=== PATIENT | male | born 1935 | race Caucasian/White ===

== ENCOUNTER 2020-02-09 06:22 | Emergency (ER) | payer MEDICARE, MEDICAID ==
[2020-02-09] MEDS ORDERED: Diltiazem 50 MG/10 ML SDV IVPUSH STA (06:30)
--- NOTE | 2020-02-09 06:36 | EDM.PDOC ---
<Albino Vera Christina - Last Filed: 02/09/20 07:18> ED HPI GENERAL MEDICAL PROBLEM - General Stated Complaint: [facility] Time Seen by Provider: 02/09/20 06:28 Source of Information: Reports: EMS History Limitations: Reports: Altered Mental Status (Patient's baseline MS = confused) - History of Present Illness INITIAL COMMENTS - FREE TEXT/NARRATIVE: Mr. Beard is a pleasantly demented 84-year-old gentleman with a past medical history significant for chronic atrial fibrillation, CAD and ME, who is now brought to the ED by EMS after found to be in atrial fibrillation with RVR by [facility] staff around 04:00. According to EMS, the patient was given both Lopressor and Cardizem at the [facility], without improvement in his heart rate. They were also concerned that the patient might have COVID-19, since another resident at their facility has tested positive, and they felt that the patient might have a fever, although the patient did not have a fever when EMS checked him in the field. He has been generally weak, although he has not had a cough. His blood pressure was normal in the field. EMS gave IV fluid, but no other treatments. Here in the ED, the patient's initial BP is found to be elevated at 150/85. He is afebrile by the forehead thermometer, but has a temperature of 101.4 degrees rectally. His oxygen saturation is 95% on room air. Unfortunately, the patient's baseline mental status is confused, unable to answer any questions, therefore we do not have any additional information as to any recent illnesses. The patient's PCP is Dr. Pepe Isbell. - Related Data Allergies Allergy/AdvReac Type Severity Reaction Status Date / Time No Known Allergies Allergy Verified 02/09/20 06:43 Home Meds: Home Meds Insulin Detemir [Levemir Flexpen] 20 unit SQ DAILY 06/05/15 [History] Acetaminophen [Tylenol] 650 mg PO QID PRN 07/11/15 [History] Enalapril Maleate 5 mg PO DAILY 07/11/15 [History] Metoprolol Tartrate [Lopressor] 25 mg PO BID 07/11/15 [History] Sertraline [Zoloft] 50 mg PO DAILY 07/11/15 [History] allopurinoL [Zyloprim] 100 mg PO BID 07/11/15 [History] Acetaminophen 3 tab PO BID 07/16/16 [History] Bisacodyl [Dulcolax] 10 mg RECTAL DAILY PRN 07/16/16 [History] Crush Medications 1 dose PO ASDIRECTED 07/16/16 [History] Docusate Sodium/Sennosides [Senna Plus] 1 tab PO DAILY PRN 07/16/16 [History] Docusate Sodium/Sennosides [Senna Plus] 2 tab PO BID 07/16/16 [History] Menthol/Camphor [Sarna Anti-Itch] 222 ml TP BEDTIME 07/16/16 [History] Danube Thick Liquids 1 dose PO ASDIRECTED 07/16/16 [History] Nitroglycerin [Nitrostat] 0.4 mg SL Q5M PRN 07/16/16 [History] Polyethylene Glycol 3350 [MiraLAX] 17 gm PO DAILY 07/16/16 [History] Potassium Chloride [Klor-Con M20] 20 meq PO DAILY 07/16/16 [History] Triamcinolone Acetonide [Triamcinolone Acetonide 0.1% Crm] 15 gm TOP BID PRN 07/16/16 [History] amLODIPine [Norvasc] 5 mg PO DAILY 07/16/16 [History] atorvaSTATin [Lipitor] 20 mg PO BEDTIME 07/16/16 [History] Apixaban [Eliquis] 5 mg PO BID 02/09/20 [History] Cetirizine [ZyrTEC] 1 tab PO DAILY 02/09/20 [History] Diltiazem [Cardizem CD] 180 mg PO DAILY 02/09/20 [History] Past Medical History HEENT History: Reports: Allergic Rhinitis Cardiovascular History: Reports: Afib (chronic), CAD, High Cholesterol, Hypertension, ME Gastrointestinal History: Reports: GERD, Other (See Below) (Dysphagia) Genitourinary History: Reports: Urinary Incontinence Musculoskeletal History: Reports: Gout Neurological History: Reports: CVA (hemorrhagic, with resultant left hemiparesis) Psychiatric History: Reports: Dementia (vascular), Depression, Other (See Below) (Insomnia) Endocrine/Metabolic History: Reports: Diabetes, Type II Social & Family History - Family History Family Medical History: Noncontributory - Living Situation & Occupation Living situation: Reports: Extended Care Facility ([facility]) Occupation: Retired ED ROS GENERAL - Review of Systems Review Of Systems: Unable To Obtain Reason Not Obtained: Dementia ED EXAM, GENERAL - Physical Exam Exam: See Below Exam Limited By: No Limitations General Appearance: Alert, WD/WN, No Apparent Distress Eye Exam: Bilateral Eye: EOMI, Normal Inspection Ears: Normal External Exam, Hearing Grossly Normal Nose: Normal Inspection Throat/Mouth: Normal Inspection, Normal Lips, Normal Voice, No Airway Compromise Head: Atraumatic, Normocephalic Neck: Normal Inspection, Full Range of Motion Respiratory/Chest: No Respiratory Distress, Lungs Clear, Normal Breath Sounds, No Accessory Muscle Use. No: Decreased Breath Sounds, Crackles, Rhonchi, Wheezing, Stridor, Prolonged Expiration Cardiovascular: Normal Peripheral Pulses, No Gallop, No JVD, No Murmur, No Rub, Tachycardia, Irregularly Irregular Peripheral Pulses: 3+: Radial (L), Radial (R) GI/Abdominal: Normal Bowel Sounds, Soft, No Organomegaly, No Distention, No Abnormal Bruit, No Mass, Tender (Mild, general, non-focal) (Male) Exam: Deferred Rectal (Males) Exam: Deferred Back Exam: Normal Inspection, Full Range of Motion, NT Extremities: Normal Inspection, Normal Range of Motion, No Pedal Edema, Normal Capillary Refill Neurological: Alert Psychiatric: Normal Affect Skin Exam: Warm, Dry, Intact, Normal Color, No Rash EKG INTERPRETATION EKG Date: 02/09/20 Time: 06:28 Rhythm: A-Fib Rate (Beats/Min): 127 Alanson: LAD-Left Alanson Deviation (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 Additionally, the [facility] was concerned about COVID-19, since they felt the patient had a low-grade fever, and apparently there is a patient who has tested positive at their facility. Although he does not have a fever when measured by a forehead thermometer, I am told that his temperature is 101.4 degrees rectally. The patient does not have a history of a cough, he is not hypoxemic. I have ordered a work-up that includes blood work, a portable chest x-ray, and an ECG. In the meantime, the patient will be given 10 mg IV diltiazem, followed by a diltiazem drip at 10 mg/hr, and IV fluid. 02/09/20 06:38 Because the patient has a history of urinary incontinence, I have ordered a urinalysis by quick catheter. 02/09/20 07:10 Because of the patient's documented fever, I have added a lactic acid level and 2 sets of blood cultures. 02/09/20 07:[address] Mooney, and care of the patient turned over to him at this time, for change of shift. Departure - Departure Disposition: DC/Tfer to [facility] 02 Clinical Impression: Tachycardia, Atrial fibrillation with RVR, Acute renal failure (ARF), Dehydration, Elevated troponin, Sepsis Referrals: Bethany Gama NP [Primary Care Provider] - <Anthony Mooney - Last Filed: 02/09/20 11:42> Course - Vital Signs Last Recorded V/S: Last Vital Signs Temp 38.6 C H 02/09/20 06:38 Pulse 128 H 02/09/20 06:38 Resp 22 H 02/09/20 06:38 BP 115/78 02/09/20 06:38 Pulse Ox 94 L 02/09/20 06:38 - Orders/Labs/Meds Orders: Active Orders 24 hr Category Date Time Status EKG Documentation Completion [RC] STAT Care 02/09/20 06:29 Active Urinary Catheter Assessment [RC] ASDIRECTED Care 02/09/20 08:16 Active Urinary Catheter Insertion [Insert Urinary Catheter] [ Care 02/09/20 07:00 Ordered OM.PC] Stat CULTURE BLOOD [BC] Stat Lab 02/09/20 07:30 Received CULTURE BLOOD [BC] Stat Lab 02/09/20 07:40 Received CULTURE URINE [RM] Stat Lab 02/09/20 08:10 Received MYOGLOBIN, URINE Stat Lab 02/09/20 08:10 Received Diltiazem [Cardizem] 100 mg Med 02/09/20 06:45 Active Sodium Chloride 0.9% [Normal Saline] 100 ml IV TITRATE Lactated Ringers [Ringers, Lactated] 1,000 ml Med 02/09/20 08:45 Active IV ASDIRECTED Sodium Chloride 0.9% [Normal Saline] 1,000 ml Med 02/09/20 06:45 Active IV ASDIRECTED Blood Culture x2 Reflex Set [OM.PC] Stat Oth 02/09/20 07:09 Ordered Medication Orders Diltiazem HCl 100 mg/ Sodium (Chloride) 100 mls @ 10 mls/hr IV TITRATE ALENA; Protocol Last Titration: 02/09/20 08:01 Dose: 5 mg/hr, 5 mls/hr Documented by: Admin: 02/09/20 06:54 Dose: 10 mg/hr, 10 mls/hr Documented by: AXEL Sodium Chloride (Normal Saline) 1,000 mls @ 100 mls/hr IV ASDIRECTED ALENA Last Infusion: 02/09/20 08:13 Dose: 100 mls/hr Documented by: Infusion: 02/09/20 08:01 Dose: 999 mls/hr Documented by: Admin: 02/09/20 06:52 Dose: 100 mls/hr Documented by: AXEL Lactated Ringer's (Ringers, Lactated) 1,000 mls @ 125 mls/hr IV ASDIRECTED ALENA Last Admin: 02/09/20 10:36 Dose: 125 mls/hr Documented by: TERRIE Labs: Laboratory Tests 02/09/20 02/09/20 02/09/20 Range/Units 07:00 07:00 07:30 WBC 25.16 H (4.23-9.07) K/mm3 RBC 3.73 L (4.63-6.08) M/mm3 Hgb 12.1 L D (13.7-17.5) gm/dl Hct 36.5 L (40.1-51.0) % MCV 97.9 H D (79.0-92.2) fl MCH 32.4 H (25.7-32.2) pg MCHC 33.2 (32.2-35.5) g/dl RDW Std Deviation 47.8 H (35.1-43.9) fL Plt Count 155 L (163-337) K/mm3 MPV 10.7 (9.4-12.3) fl Neutrophils % (Manual) 95 H (40-60) % Band Neutrophils % 0 (0-10) % Lymphocytes % (Manual) 0 L (20-40) % Atypical Lymphs % 0 % Monocytes % (Manual) 5 (2-10) % Eosinophils % (Manual) 0 L (0.8-7.0) % Basophils % (Manual) 0 L (0.2-1.2) Toxic Granulation Few Platelet Estimate Adequate Plt Morphology Comment Normal RBC Morph Comment Normal Sodium 141 (136-145) mEq/L Potassium 3.4 L (3.5-5.1) mEq/L Chloride 104 (98-107) mEq/L Carbon Dioxide 22 (21-32) mEq/L Anion Gap 18.4 H (5-15) BUN 46 H D (7-18) mg/dL Creatinine 2.6 H D (0.7-1.3) mg/dL Est Cr Clr Drug Dosing TNP Estimated GFR (MDRD) 24 (>60) mL/min BUN/Creatinine Ratio 17.7 (14-18) Glucose 115 (83-115) mg/dL Lactic Acid 1.3 (0.4-2.0) mmol/L Calcium 8.7 (8.5-10.1) mg/dL Magnesium 2.1 (1.8-2.4) mg/dl Total Bilirubin 1.6 H (0.2-1.0) mg/dL AST 25 (15-37) U/L ALT 24 (16-63) U/L Alkaline Phosphatase 96 (46-116) U/L Troponin I 0.464 H* (0.00-0.056) ng/mL Total Protein 6.6 (6.4-8.2) g/dl Albumin 2.8 L (3.4-5.0) g/dl Globulin 3.8 gm/dL Albumin/Globulin Ratio 0.7 L (1-2) Urine Color (Yellow) Urine Appearance (Clear) Urine pH (5.0-8.0) Ur Specific Spearfish (1.005-1.030) Urine Protein (Negative) Urine Glucose (UA) (Negative) Urine Ketones (Negative) Urine Occult Blood (Negative) Urine Nitrite (Negative) Urine Bilirubin (Negative) Urine Urobilinogen (0.2-1.0) Ur Leukocyte Esterase (Negative) Urine RBC (0-5) /hpf Urine WBC (0-5) /hpf Urine WBC Clumps (NOT SEEN) /hpf Ur Epithelial Cells (0-5) /hpf Urine Bacteria (FEW) /hpf Urine Mucus (FEW) /hpf SARS Virus RNA (PCR) (NEGATIVE) 02/09/20 02/09/20 Range/Units 08:10 09:30 WBC (4.23-9.07) K/mm3 RBC (4.63-6.08) M/mm3 Hgb (13.7-17.5) gm/dl Hct (40.1-51.0) % MCV (79.0-92.2) fl MCH (25.7-32.2) pg MCHC (32.2-35.5) g/dl RDW Std Deviation (35.1-43.9) fL Plt Count (163-337) K/mm3 MPV (9.4-12.3) fl Neutrophils % (Manual) (40-60) % Band Neutrophils % (0-10) % Lymphocytes % (Manual) (20-40) % Atypical Lymphs % % Monocytes % (Manual) (2-10) % Eosinophils % (Manual) (0.8-7.0) % Basophils % (Manual) (0.2-1.2) Toxic Granulation Platelet Estimate Plt Morphology Comment RBC Morph Comment Sodium (136-145) mEq/L Potassium (3.5-5.1) mEq/L Chloride (98-107) mEq/L Carbon Dioxide (21-32) mEq/L Anion Gap (5-15) BUN (7-18) mg/dL Creatinine (0.7-1.3) mg/dL Est Cr Clr Drug Dosing Estimated GFR (MDRD) (>60) mL/min BUN/Creatinine Ratio (14-18) Glucose (83-115) mg/dL Lactic Acid (0.4-2.0) mmol/L Calcium (8.5-10.1) mg/dL Magnesium (1.8-2.4) mg/dl Total Bilirubin (0.2-1.0) mg/dL AST (15-37) U/L ALT (16-63) U/L Alkaline Phosphatase (46-116) U/L Troponin I (0.00-0.056) ng/mL Total Protein (6.4-8.2) g/dl Albumin (3.4-5.0) g/dl Globulin gm/dL Albumin/Globulin Ratio (1-2) Urine Color Malgorzata H (Yellow) Urine Appearance Cloudy H (Clear) Urine pH 6.0 (5.0-8.0) Ur Specific Spearfish 1.020 (1.005-1.030) Urine Protein 3+ H (Negative) Urine Glucose (UA) Negative (Negative) Urine Ketones Trace H (Negative) Urine Occult Blood 3+ H (Negative) Urine Nitrite Negative (Negative) Urine Bilirubin 1+ H (Negative) Urine Urobilinogen 0.2 (0.2-1.0) Ur Leukocyte Esterase 1+ H (Negative) Urine RBC 75-100 H (0-5) /hpf Urine WBC 40-50 H (0-5) /hpf Urine WBC Clumps Rare (NOT SEEN) /hpf Ur Epithelial Cells Not seen (0-5) /hpf Urine Bacteria Rare (FEW) /hpf Urine Mucus Not seen (FEW) /hpf SARS Virus RNA (PCR) Negative (NEGATIVE) Meds: Medications Generic Name Dose Route Start Last Admin Trade Name Freq PRN Reason Stop Dose Admin Diltiazem HCl 100 mg/ Sodium 100 mls @ 10 mls/hr 02/09/20 06:45 02/09/20 08:01 Chloride IV 5 mg/hr TITRATE ALENA 5 mls/hr Titration Protocol 10 MG/HR Sodium Chloride 1,000 mls @ 100 mls/hr 02/09/20 06:45 02/09/20 08:13 Normal Saline IV 100 mls/hr ASDIRECTED ALENA Infusion Lactated Ringer's 1,000 mls @ 125 mls/hr 02/09/20 08:45 02/09/20 10:36 Ringers, Lactated IV 125 mls/hr ASDIRECTED ALENA Administration Discontinued Medications Generic Name Dose Route Start Last Admin Trade Name Freq PRN Reason Stop Dose Admin Aspirin 324 mg 02/09/20 08:58 02/09/20 09:40 Aspirin PO 02/09/20 08:59 324 mg ONETIME ONE Administration Ceftriaxone Sodium 2 gm/ 0 gm 02/09/20 09:00 02/09/20 09:09 Lidocaine HCl 2.1 ml IM Not Given Q24H ALENA Diltiazem HCl 10 mg 02/09/20 06:30 02/09/20 06:53 Cardizem IVPUSH 02/09/20 06:31 10 mg ONETIME STA Administration Ceftriaxone Sodium 2 gm/ 100 mls @ 200 mls/hr 02/09/20 09:07 02/09/20 09:38 Sodium Chloride IV 02/09/20 09:36 Not Given ONETIME ONE Ceftriaxone Sodium 2 gm/ 100 mls @ 200 mls/hr 02/09/20 09:13 02/09/20 09:15 Sodium Chloride IV 02/09/20 09:42 200 mls/hr ONETIME ONE Administration Potassium Chloride 40 meq 02/09/20 08:34 02/09/20 09:06 Klor-Con M20 PO 02/09/20 08:35 Not Given ONETIME ONE Potassium Chloride 40 meq 02/09/20 09:02 02/09/20 09:40 Potassium Chloride Solution PO 02/09/20 09:03 40 meq ONETIME ONE Administration - Re-Assessments/Exams Free Text/Narrative Re-Assessment/Exam: 02/09/20 08:15 Assumed care at change of shift shortly before 8 the patient's troponin was reported and is elevated at 0.464. After some time I was able to discuss situation with the patient's son who says he is comfort care but a full code the patient still wants everything done. Patient was seen in [facility] in [place] for 5 years ago and told he was a nonoperative candidate for his heart condition. Patient is chronic A. fib he has had extensive coronary artery disease has had a prior ME and has had a stroke. Patient is on Eliquis for his chronic A. fib. At 804 I discussed the patient's case with Dedra Brewer call at [facility] in [place] and at [address] longo and he wanted an EKG faxed to her I did do this with the top portion of the EKG deleted. And am waiting for return call. The patient's BUN and creatinine is 46 and 2.6 in June 2016 he was 18 and 0.9 in December of this year his creatinine was 0.9 at [facility]. So this represents an acute renal situation is anion gap is elevated at 18.4. Chest x-ray AP suboptimal due to rotation and positioning however shows no acute changes per my interpretation. 02/09/20 08:44 On my evaluation of the patient he has scant if any pretibial edema heart sounds were clear the patient was not complaining of any chest pain or chest pressure distant heart sounds were appreciated irregularly irregular. No abdominal pain good bowel sounds. I did discuss patient's case with Dr. Francisco cardiology at [facility] in [place] who did review the EKG and does not feel this is ischemic in nature. 02/09/20 08:56 Discussed the situation with Dr. Youngblood, accepting hospitalist at [facility] in [place] who would like us to check a rapid COVID start 2 g of Rocephin and aspirin 325 mg. Are waiting to transfer until we get a bed number. Patient will be started on LR 125 cc an hour. 02/09/20 10:14 It should be noted that the patient's fluid was started at 125 cc an hour as I did not feel comfortable bolusing him as he is anticipating a prolonged ambulance ride to [place] in the very near future and he has significant underlying coronary disease. The patient is demonstrating cardiovascular stability currently he has a blood pressure of 100 and over 55 map of 70 pulse 86. 02/09/20 11:41 Patient's rapid COVID is negative. Departure - Departure Time of Disposition: 08:57 Reason for Transfer *Q: Other Sepsis Event Note (ED) - Focused Exam Vital Signs: Vital Signs Temp Pulse Resp BP Pulse Ox 02/09/20 06:38 38.6 C H 128 H 22 H 115/78 94 L - My Orders Last 24 Hours: My Active Orders 02/09/20 08:10 CULTURE URINE [RM] Stat MYOGLOBIN, URINE Stat 02/09/20 08:45 Lactated Ringers [Ringers, Lactated] 1,000 ml IV ASDIRECTED - Assessment/Plan Last 24 Hours: My Active Orders 02/09/20 08:10 CULTURE URINE [RM] Stat MYOGLOBIN, URINE Stat 02/09/20 08:45 Lactated Ringers [Ringers, Lactated] 1,000 ml IV ASDIRECTED
[2020-02-09] MEDS ORDERED: Sodium Chloride 0.9% 1,000 ML IV SCH (06:45)
[2020-02-09] MEDS ORDERED: Diltiazem 100 MG in Sodium Chloride 0.9% 100 ML IV SCH (06:45)
--- NOTE | 2020-02-09 07:56 | CR ---
Chest: Portable view of the chest was obtained. Comparison: Prior chest x-ray of 06/05/15. Heart size and mediastinum are within normal limits for portable technique. Lungs are clear with no acute parenchymal change. Bony structures are osteopenic. Degenerative change is noted within both shoulders. Possible chronic rotator cuff tear is are noted within both shoulders. Impression: 1. Findings as described above. 2. Nothing acute is appreciated. Diagnostic code #2 This report was dictated in MDT
[2020-02-09] MEDS ORDERED: Potassium Chloride 20 MEQ Tab.ER PO ONE (08:34)
[2020-02-09] MEDS ORDERED: Lactated Ringers 1,000 ML IV SCH (08:45)
[2020-02-09] MEDS ORDERED: Aspirin 81 MG Tab.Chew PO ONE (08:58)
[2020-02-09] MEDS ORDERED: cefTRIAXone 2 GM, Lidocaine 1% 2.1 ML IM SCH ×2 (09:00)
[2020-02-09] MEDS ORDERED: Potassium Chloride 10% 20 MEQ/15 ML Soln 15 ML UD Cup PO ONE (09:02)
[2020-02-09] MEDS ORDERED: cefTRIAXone 2 GM in Sodium Chloride 0.9% 100 ML IV ONE ×2 (09:07→09:13)
[2020-02-09 13:07] VITALS: BP 99/69; PULSE 87
== END 2020-02-09 12:30 ==
LOC: JD.ED 06:22
DX: R65.20 Severe sepsis without septic shock (principal); N17.9 Acute kidney failure, unspecified; E86.0 Dehydration; R00.0 Tachycardia, unspecified; R79.89 Other specified abnormal findings of blood chemistry; I10 Essential (primary) hypertension; E78.00 Pure hypercholesterolemia, unspecified; I25.10 Atherosclerotic heart disease of native coronary artery without angina pectoris; I48.91 Unspecified atrial fibrillation; F32.9 Major depressive disorder, single episode, unspecified; M10.9 Gout, unspecified; E11.9 Type 2 diabetes mellitus without complications; Z20.828 Contact with and (suspected) exposure to other viral communicable diseases; Z79.4 Long term (current) use of insulin; Z79.01 Long term (current) use of anticoagulants; Z79.899 Other long term (current) drug therapy
CPT/HCPCS: 36415; 71045; 80053; 81001; 83605; 83735; 83874; 84484; 85007; 85027; 87040; 87086; 87088; 87186; 93005; 96361; 96365; 96366; 96367; 96376; 99285; A9270; J0696; J3490; J7030; J7050; J7120; U0002

== ENCOUNTER 2020-09-06 04:20 | Emergency (ER) | payer MEDICARE, MEDICAID, OTHER ==
--- NOTE | 2020-09-06 04:45 | EDM.PDOC ---
ED HPI GENERAL MEDICAL PROBLEM - General Chief Complaint: Respiratory Problem Stated Complaint: LIBERTY AMB Time Seen by Provider: 09/06/20 04:31 Source of Information: Reports: Patient, RN Notes Reviewed History Limitations: Reports: Other (The patient has dementia) - History of Present Illness INITIAL COMMENTS - FREE TEXT/NARRATIVE: Mr. Beard is a pleasantly demented 84-year-old gentleman who is now brought to the ED by EMS from [facility] with a report of "Chest pain, difficulty with breathing. O2 sat on 4L is 90%. Diaphoretic. Audible wheezes. CP improving after 3 nitro. BP stable." The group home paperwork does not indicate when the patient's symptoms began. When I asked the patient what brings him to the ED, he replied "chest pain", and indicated pain felt across his chest. He stated that he has had chest pain for 2 days. I also asked him if it was true that he felt short of breath, and he indicated "slightly" and that it had also been going on for 2 days. The patient is not able to provide any more meaningful history. Here in the ED, the patient's initial BP is found to be mildly elevated at 141/74, with tachypnea of 29 rpm. He is afebrile, saturating 86% on room air, 92% on 2 L of oxygen per nasal cannula. Unfortunately, due to the patient's dementia, he is not able to provide us with a meaningful recent review of systems. The patient's PCP is Dr. Pepe Isbell. 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: Oxygen - Related Data Allergies Allergy/AdvReac Type Severity Reaction Status Date / Time No Known Allergies Allergy Verified 09/06/20 05:45 Home Meds: Home Meds Insulin Detemir [Levemir Flexpen] 20 unit SQ DAILY 06/05/15 [History] Acetaminophen [Tylenol] 650 mg PO QID PRN 07/11/15 [History] Enalapril Maleate 5 mg PO DAILY 07/11/15 [History] Metoprolol Tartrate [Lopressor] 25 mg PO BID 07/11/15 [History] Sertraline [Zoloft] 50 mg PO DAILY 07/11/15 [History] allopurinoL [Zyloprim] 100 mg PO DAILY 07/11/15 [History] Bisacodyl [Dulcolax] 10 mg RECTAL DAILY PRN 07/16/16 [History] Crush Medications 1 dose PO ASDIRECTED 07/16/16 [History] Docusate Sodium/Sennosides [Senna Plus] 1 tab PO DAILY PRN 07/16/16 [History] Docusate Sodium/Sennosides [Senna Plus] 2 tab PO BID 07/16/16 [History] Menthol/Camphor [Sarna Anti-Itch] 222 ml TP BEDTIME 07/16/16 [History] [employer] Thick Liquids 1 dose PO ASDIRECTED 07/16/16 [History] Nitroglycerin [Nitrostat] 0.4 mg SL Q5M PRN 07/16/16 [History] Potassium Chloride [Klor-Con M20] 20 meq PO DAILY 07/16/16 [History] Triamcinolone Acetonide [Triamcinolone Acetonide 0.1% Crm] 15 gm TOP BID PRN 07/16/16 [History] amLODIPine [Norvasc] 5 mg PO DAILY 07/16/16 [History] atorvaSTATin [Lipitor] 20 mg PO DAILY 07/16/16 [History] Apixaban [Eliquis] 2.5 mg PO BID 02/09/20 [History] Cetirizine [ZyrTEC] 1 tab PO DAILY 02/09/20 [History] Diltiazem [Cardizem CD] 180 mg PO DAILY 02/09/20 [History] Donepezil [Aricept] 10 mg PO DAILY 09/06/20 [History] Isosorbide Mononitrate [Imdur] 30 mg PO DAILY 09/06/20 [History] Past Medical History HEENT History: Reports: Allergic Rhinitis Cardiovascular History: Reports: Afib (chronic), CAD, High Cholesterol, Hypertension, [place] Gastrointestinal History: Reports: GERD, Other (See Below) (Dysphagia) Genitourinary History: Reports: Urinary Incontinence Musculoskeletal History: Reports: Gout Neurological History: Reports: CVA (hemorrhagic, with resultant left hemiparesis), Seizure, Other (See Below) (Dementia) Psychiatric History: Reports: Depression, Other (See Below) (Insomnia) Endocrine/Metabolic History: Reports: Diabetes, Type II - Infectious Disease History Infectious Disease History: Reports: Novel Coronavirus (dx'd May 2020) Social & Family History - Living Situation & Occupation Living situation: Reports: Extended Care Facility ([facility]) Occupation: Retired ED ROS GENERAL - Review of Systems Review Of Systems: Unable To Obtain Reason Not Obtained: Pt's dementia ED EXAM, GENERAL - Physical Exam Exam: See Below Exam Limited By: No Limitations General Appearance: Alert, WD/WN, No Apparent Distress Eye Exam: Bilateral Eye: EOMI, Normal Inspection Ears: Normal External Exam, Hearing Grossly Normal Nose: Normal Inspection Throat/Mouth: Normal Inspection, Normal Lips, No Airway Compromise Head: Atraumatic, Normocephalic Neck: Normal Inspection, Full Range of Motion Respiratory/Chest: No Respiratory Distress, Lungs Clear, Normal Breath Sounds, No Accessory Muscle Use. No: Wheezing Cardiovascular: Normal Peripheral Pulses, No Gallop, No JVD, No Murmur, No Rub, Irregularly Irregular (regular rate) Peripheral Pulses: 3+: Radial (L), Radial (R) GI/Abdominal: Normal Bowel Sounds, Soft, Non-Tender, No Organomegaly, No Distention, No Abnormal Bruit, No Mass Extremities: Normal Inspection, Normal Range of Motion, Normal Capillary Refill Neurological: Alert Psychiatric: Normal Affect Skin Exam: Warm, Dry, Intact, Normal Color, No Rash #1 Interpretation EKG Date: 09/06/20 Time: 04:30 Rhythm: A-Fib Rate (Beats/Min): 89 [place]: Other (Extreme axis) P-Wave: Absent QRS: RBBB (Poor R-wave progression) ST-T: Depressed (V3-V6 + inferior leads) QT: Prolonged (QTc 525 ms) Comparison: Change From Previous EKG (ST depressions new since 02/09/2020) Course - Vital Signs Last Recorded V/S: Last Vital Signs Temp 36.3 C 09/06/20 04:27 Pulse 88 09/06/20 04:27 Resp 29 H 09/06/20 04:27 BP 141/74 H 09/06/20 04:27 Pulse Ox 86 L 09/06/20 04:27 - Orders/Labs/Meds Orders: Active Orders 24 hr Category Date Time Status EKG Documentation Completion [RC] STAT Care 09/06/20 04:35 Active Chest 1V Frontal [CR] Stat Exams 09/06/20 05:11 Taken Labs: Laboratory Tests 09/06/20 09/06/20 09/06/20 Range/Units 04:35 04:35 04:35 WBC 14.01 H (4.23-9.07) K/mm3 RBC 3.76 L (4.63-6.08) M/mm3 Hgb 11.7 L (13.7-17.5) gm/dl Hct 36.0 L (40.1-51.0) % MCV 95.7 H (79.0-92.2) fl MCH 31.1 (25.7-32.2) pg MCHC 32.5 (32.2-35.5) g/dl RDW Std Deviation 49.9 H (35.1-43.9) fL Plt Count 159 L (163-337) K/mm3 MPV 11.3 (9.4-12.3) fl Neutrophils % (Manual) 91 H (40-60) % Band Neutrophils % 1 (0-10) % Lymphocytes % (Manual) 5 L (20-40) % Atypical Lymphs % 0 % Monocytes % (Manual) 3 (2-10) % Eosinophils % (Manual) 0 L (0.8-7.0) % Basophils % (Manual) 0 L (0.2-1.2) Platelet Estimate Adequate Poikilocytosis 1+ slight Anisocytosis 1+ slight RBC Morph Comment Abnormal D-Dimer, Quantitative 0.48 (0.19-0.50) mg/L Sodium 141 (136-145) mEq/L Potassium 4.8 (3.5-5.1) mEq/L Chloride 104 (98-107) mEq/L Carbon Dioxide 22 (21-32) mEq/L Anion Gap 19.8 H (5-15) BUN 41 H (7-18) mg/dL Creatinine 1.8 H (0.7-1.3) mg/dL Est Cr Clr Drug Dosing TNP Estimated GFR (MDRD) 36 (>60) mL/min BUN/Creatinine Ratio 22.8 H (14-18) Glucose 180 H (83-115) mg/dL Calcium 8.8 (8.5-10.1) mg/dL Magnesium 2.5 H (1.8-2.4) mg/dl Total Bilirubin 1.7 H (0.2-1.0) mg/dL AST 45 H (15-37) U/L ALT 34 (16-63) U/L Alkaline Phosphatase 92 (46-116) U/L Troponin I 2.585 H* (0.00-0.056) ng/mL NT-Pro-B Natriuret Pep (0-450) pg/mL Total Protein 7.4 (6.4-8.2) g/dl Albumin 3.9 (3.4-5.0) g/dl Globulin 3.5 gm/dL Albumin/Globulin Ratio 1.1 (1-2) Influenza Type A RNA (NEGATIVE) Influenza Type B RNA (NEGATIVE) SARS-CoV-2 RNA (CORDELL) (NEGATIVE) 09/06/20 09/06/20 Range/Units 04:35 05:14 WBC (4.23-9.07) K/mm3 RBC (4.63-6.08) M/mm3 Hgb (13.7-17.5) gm/dl Hct (40.1-51.0) % MCV (79.0-92.2) fl MCH (25.7-32.2) pg MCHC (32.2-35.5) g/dl RDW Std Deviation (35.1-43.9) fL Plt Count (163-337) K/mm3 MPV (9.4-12.3) fl Neutrophils % (Manual) (40-60) % Band Neutrophils % (0-10) % Lymphocytes % (Manual) (20-40) % Atypical Lymphs % % Monocytes % (Manual) (2-10) % Eosinophils % (Manual) (0.8-7.0) % Basophils % (Manual) (0.2-1.2) Platelet Estimate Poikilocytosis Anisocytosis RBC Morph Comment D-Dimer, Quantitative (0.19-0.50) mg/L Sodium (136-145) mEq/L Potassium (3.5-5.1) mEq/L Chloride (98-107) mEq/L Carbon Dioxide (21-32) mEq/L Anion Gap (5-15) BUN (7-18) mg/dL Creatinine (0.7-1.3) mg/dL Est Cr Clr Drug Dosing Estimated GFR (MDRD) (>60) mL/min BUN/Creatinine Ratio (14-18) Glucose (83-115) mg/dL Calcium (8.5-10.1) mg/dL Magnesium (1.8-2.4) mg/dl Total Bilirubin (0.2-1.0) mg/dL AST (15-37) U/L ALT (16-63) U/L Alkaline Phosphatase (46-116) U/L Troponin I (0.00-0.056) ng/mL NT-Pro-B Natriuret Pep 61666 H (0-450) pg/mL Total Protein (6.4-8.2) g/dl Albumin (3.4-5.0) g/dl Globulin gm/dL Albumin/Globulin Ratio (1-2) Influenza Type A RNA Negative (NEGATIVE) Influenza Type B RNA Negative (NEGATIVE) SARS-CoV-2 RNA (CORDELL) Negative (NEGATIVE) Meds: Medications Discontinued Medications Generic Name Dose Route Start Last Admin Trade Name Freq PRN Reason Stop Dose Admin Aspirin 324 mg 09/06/20 04:51 09/06/20 05:15 Aspirin PO 09/06/20 04:52 324 mg ONETIME STA Administration Furosemide 40 mg 09/06/20 05:47 09/06/20 06:03 Lasix IVPUSH 09/06/20 05:48 40 mg NOW ONE Administration - Re-Assessments/Exams Free Text/Narrative Re-Assessment/Exam: 09/06/20 04:43 As above, the patient was brought to the ED from the group home, dyspnea, hypoxia, diaphoresis, and audible wheezing. The patient, who has dementia, reports only chest pain, and states that he has had that for 2 days. The group home papers indicate that his chest pain improved after he was given 3 nitroglycerin. While he does have a wheezing-like sound to the naked ear, his lungs are clear to auscultation bilaterally with a stethoscope, indicating an upper airway source of the sound. An ECG obtained at triage demonstrates atrial fibrillation, rate controlled, and a right bundle branch block. He has ST depressions seen in V3V6 and in the inferior leads, which are different from his prior ECG dated 02/09/2020. His physical exam is unremarkable. He is not diaphoretic. I have ordered a work-up that includes several blood tests, a portable chest x-ray, and swabs for both influenza and the SARS-CoV-2 virus. In the meantime, the patient will be given 324 mg of chewable aspirin. Of note, the patient is on Eliquis. 09/06/20 05:43 Notified by Cecilia COTTER that the patient was diagnosed with COVID-19 in May. He received his second dose of the COVID vaccine this past 09/04/2019. Portable chest radiograph reviewed. The cardiac silhouette is at the upper limits of normal. Aortosclerosis incidentally noted. There is bilateral pulmonary vascular congestion. No pleural effusions seen on this AP view. No pneumothorax. Formal read per the Radiologist pending. The patient's CBC is remarkable for WBC count elevated at 14.01, with only 1% bandemia. His H/H is slightly depressed at 11.7 and 36.0, with mild thrombocytopenia of 159,000. His CMP is remarkable for an anion gap elevated at 19.8, but with a bicarbonate normal at 22. His BUN/Cr are elevated at 41/1.8, with modest hyperglycemia of 180. His TBil is elevated at 1.7, with the remainder of his CMP being unremarkable. His magnesium level is mildly elevated at 2.5. His pro-BNP is substantially elevated at 18,967. His troponin is elevated at 2.585. His D-dimer is within normal limits at 0.48. Results of his influenza/COVID-19 swab are still pending. Review of prior labs finds that the patient's BUN/Cr were 46/2.6 on 02/09/2020. His troponin was 2.585 at that time. There are no prior pro-BNP to compare. 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 I have ordered 40 mg of IV Lasix. 09/06/20 06:03 The patient's influenza swab has returned negative. His swab for the SARS-CoV-2 virus has returned negative. The patient's CODE STATUS is full code. His underlying dementia and renal insufficiency may limited him as a candidate for a coronary angiogram, however, I would like to discuss his situation with a Joinery Machinist. 09/06/20 06:31 Case discussed with Minna at [facility] at 06:06. Unfortunately, they do not have any cardiac beds available at this time. Case then discussed with Andry at [facility] at 06:17. Case then discussed with Dr. Aguirre, electrostatic powder coating technician on-call at [facility], at 06:22. He agreed that we are not able to determine at this time with the patient's elevated troponin and BNP are due to a recent [place] or COVID cardiomyopathy. He recommended that we transfer the patient to the care of their Hospitalist. He agreed with our current care, but did not recommend any other medications at this time. Case then discussed with Dr. Melissa, Hospitalist at [facility], at 06:29. Accepted the patient for transfer to their facility. The patient will be transported by ground ambulance. 09/06/20 06:55 The portable chest x-ray image has been pushed to [facility]. Departure - Departure Time of Disposition: 06:34 Disposition: DC/Tfer to Acute Hospital 02 Condition: Good Clinical Impression: Elevated troponin, CHF exacerbation, Chronic renal insufficiency, Hyperglycemia due to type 2 diabetes mellitus - Discharge Information *PRESCRIPTION DRUG MONITORING PROGRAM REVIEWED*: Not Applicable *COPY OF PRESCRIPTION DRUG MONITORING REPORT IN PATIENT TURNER: Not Applicable Referrals: Pepe Isbell MD [Primary Care Provider] - Forms: ED Department Discharge Sepsis Event Note (ED) - Evaluation Sepsis Screening Result: No Definite Risk - Focused Exam Vital Signs: Vital Signs Temp Pulse Resp BP Pulse Ox 09/06/20 04:27 36.3 C 88 29 H 141/74 H 86 L - My Orders Last 24 Hours: My Active Orders 09/06/20 04:35 EKG Documentation Completion [RC] STAT 09/06/20 05:11 Chest 1V Frontal [CR] Stat - Assessment/Plan Last 24 Hours: My Active Orders 09/06/20 04:35 EKG Documentation Completion [RC] STAT 09/06/20 05:11 Chest 1V Frontal [CR] Stat
[2020-09-06] MEDS ORDERED: Aspirin 81 MG Tab.Chew PO STA (04:51)
[2020-09-06 05:15] VITALS: BP 141/74; PULSE 88
[2020-09-06] MEDS ORDERED: Furosemide 40 MG/4 ML VIAL IVPUSH ONE (05:47)
[2020-09-06 06:01] LABS: CORONAVIRUS COVID-19 NAA NEGATIVE (NEGATIVE)
--- NOTE | 2020-09-07 12:52 | CR ---
Chest: Portable view of the chest was obtained. Comparison: Prior chest x-ray of 02/09/20. Heart is enlarged. Pulmonary vessels are diffusely increased. Bony structures are grossly intact. Impression: 1. Findings highly suspicious for CHF. Diagnostic code #3
== END 2020-09-06 07:15 ==
LOC: JD.ED 04:20
DX: E11.65 Type 2 diabetes mellitus with hyperglycemia (principal); E11.22 Type 2 diabetes mellitus with diabetic chronic kidney disease; I13.0 Hypertensive heart and chronic kidney disease with heart failure and stage 1 through stage 4 chronic kidney disease, or unspecified chronic kidney disease; I50.9 Heart failure, unspecified; N18.9 Chronic kidney disease, unspecified; I48.91 Unspecified atrial fibrillation; I25.10 Atherosclerotic heart disease of native coronary artery without angina pectoris; E78.00 Pure hypercholesterolemia, unspecified; M10.9 Gout, unspecified; F03.90 Unspecified dementia, unspecified severity, without behavioral disturbance, psychotic disturbance, mood disturbance, and anxiety; Z86.73 Personal history of transient ischemic attack (TIA), and cerebral infarction without residual deficits; R79.89 Other specified abnormal findings of blood chemistry; I25.2 Old myocardial infarction; Z79.01 Long term (current) use of anticoagulants; Z79.899 Other long term (current) drug therapy; Z20.822 Contact with and (suspected) exposure to COVID-19; Z79.4 Long term (current) use of insulin
CPT/HCPCS: 0240U; 36415; 71045; 80053; 83735; 83880; 84484; 85007; 85027; 85379; 93005; 96374; 99285; A9270; J1940; 93010

== ENCOUNTER 2020-09-12 08:32 | Inpatient (IN) | payer MEDICARE, MEDICAID ==
[2020-09-12] MEDS ORDERED: Sodium Chloride 0.9% 10 ML Syringe FLUSH PRN (08:51)
[2020-09-12] MEDS ORDERED: Sodium Chloride 0.9% 500 ML IV ONE (08:57)
--- NOTE | 2020-09-12 09:04 | EDM.PDOC ---
ED HPI GENERAL MEDICAL PROBLEM - General Chief Complaint: Cardiovascular Problem Stated Complaint: [facility] Time Seen by Provider: 09/12/20 08:36 Source of Information: Reports: Patient (Significant history of dementia.), [facility] Records, Old Records History Limitations: Reports: Other (ED vital signs temp 97.1, pulse 117, respiratory rate 13, blood blood pressure 110/64, pulse ox 100% on room air.) - History of Present Illness INITIAL COMMENTS - FREE TEXT/NARRATIVE: 84-year-old male presents to the emergency department via [place] [facility] with complaints of chest discomfort. He is a resident of [facility] with significant dementia so it is hard to obtain a thorough history from him. Per the half-way patient was recently sent to [facility] due to atrial fibrillation. However, upon looking at old records it appears the patient was in heart failure and had positive troponins. Per the half-way report the patient's Cardizem was discontinued on this last hospitalization. Patient presents today with complaints of chest discomfort he is unable to tell me what he was doing or when it started. He states it is much worse when I palpate his chest. It is also worse when taking a deep breath. States he feels woozy. He also tells me he has has abdominal pain however he is not able to localize the pain. Lung sounds are diminished with fine crackles noted to the left posterior lobe. His tongue is extremely dry. And there is no edema noted. - Related Data Allergies Allergy/AdvReac Type Severity Reaction Status Date / Time No Known Allergies Allergy Verified 09/12/20 13:48 Home Meds: Home Meds Insulin Detemir [Levemir Flexpen] 10 unit SQ DAILY 06/05/15 [History] Acetaminophen [Tylenol] 650 mg PO QID PRN 07/11/15 [History] Enalapril Maleate 5 mg PO DAILY 07/11/15 [History] Metoprolol Tartrate [Lopressor] 37.5 mg PO BID 07/11/15 [History] Sertraline [Zoloft] 50 mg PO DAILY 07/11/15 [History] allopurinoL [Zyloprim] 200 mg PO DAILY 07/11/15 [History] Bisacodyl [Dulcolax] 10 mg RECTAL DAILY PRN 07/16/16 [History] Crush Medications 1 dose PO ASDIRECTED 07/16/16 [History] Docusate Sodium/Sennosides [Senna Plus] 2 tab PO BID 07/16/16 [History] Menthol/Camphor [Sarna Anti-Itch] 1 applic TP BEDTIME 07/16/16 [History] [place] Thick Liquids 1 dose PO ASDIRECTED 07/16/16 [History] Nitroglycerin [Nitrostat] 0.4 mg SL Q5M PRN 07/16/16 [History] Potassium Chloride [Klor-Con M20] 20 meq PO DAILY 07/16/16 [History] Triamcinolone Acetonide [Triamcinolone Acetonide 0.1% Crm] 1 applic TOP BID PRN 07/16/16 [History] amLODIPine [Norvasc] 5 mg PO DAILY 07/16/16 [History] atorvaSTATin [Lipitor] 20 mg PO DAILY 07/16/16 [History] Apixaban [Eliquis] 5 mg PO BID 02/09/20 [History] Cetirizine [ZyrTEC] 5 mg PO DAILY 02/09/20 [History] Donepezil [Aricept] 10 mg PO DAILY 09/06/20 [History] Isosorbide Mononitrate [Imdur] 30 mg PO DAILY 09/06/20 [History] Acetaminophen 650 mg PO BID 09/12/20 [History] Aspirin 81 mg PO DAILY 09/12/20 [History] Cranberry 425 mg PO DAILY 09/12/20 [History] Furosemide [Lasix] 40 mg PO DAILY 09/12/20 [History] Insulin NPH Human Isophane [Novolin N Flexpen] 1 dose SUBCUT QID PRN 09/12/20 [History] Past Medical History HEENT History: Reports: Allergic Rhinitis Other HEENT History: dysphasia, is on nectar thickened liquids with crushed meds/pureed foods Cardiovascular History: Reports: Afib, CAD, High Cholesterol, Hypertension, [place] Gastrointestinal History: Reports: GERD, Other (See Below) Other Gastrointestinal History: dysphagia Genitourinary History: Reports: Urinary Incontinence Musculoskeletal History: Reports: Gout Other Musculoskeletal History: chronic muscle weakness, lack of coordination, abnormal posture, hemiplegia and hemiparesis left side, gout Neurological History: Reports: CVA, Seizure, Other (See Below) Other Neuro History: 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 Psychiatric History: Reports: Depression, Other (See Below) Other Psychiatric History: insomnia Endocrine/Metabolic History: Reports: Diabetes, Type II - Infectious Disease History Infectious Disease History: Reports: Novel Coronavirus Social & Family History - Family History Family Medical History: No Pertinent Family History - Tobacco Use Tobacco Use Status *Q: Unknown Ever Used Tobacco - Caffeine Use Caffeine Use: Reports: None - Recreational Drug Use Recreational Drug Use: No - Living Situation & Occupation Living situation: Reports: Extended Care Facility ([facility]) Occupation: Retired ED ROS GENERAL - Review of Systems Review Of Systems: See Below Constitutional: Reports: No Symptoms. Denies: Fever, Malaise HEENT: Reports: No Symptoms Respiratory: Reports: No Symptoms. Denies: Shortness of Breath, Wheezing, Pleuritic Chest Pain, Cough Cardiovascular: Reports: Chest Pain, Lightheadedness. Denies: Edema, Orthopnea, Palpitations, Syncope Endocrine: Reports: No Symptoms GI/Abdominal: Reports: Abdominal Pain (Generalized). Denies: Constipation, Diarrhea, Nausea, Vomiting : Reports: No Symptoms Musculoskeletal: Reports: No Symptoms Skin: Reports: No Symptoms Neurological: Reports: Confusion (History of dementia) Psychiatric: Reports: No Symptoms Hematologic/Lymphatic: Reports: No Symptoms Immunologic: Reports: No Symptoms ED EXAM, GENERAL - Physical Exam Exam: See Below Exam Limited By: Other (Significant history of dementia, patient is a poor historian) General Appearance: Alert, WD/WN, No Apparent Distress Eye Exam: Bilateral Eye: PERRL Ears: Normal External Exam, Hearing Grossly Normal Nose: Normal Inspection Throat/Mouth: Normal Inspection, Normal Lips, No Airway Compromise, Other (Mouth is very dry.) Head: Atraumatic, Normocephalic Neck: Normal Inspection, Supple, Non-Tender, Full Range of Motion Respiratory/Chest: No Respiratory Distress, Normal Breath Sounds, Chest Non- Tender (Bilaterally chest is tender with minimal palpation.), Decreased Breath Sounds, Crackles (Fine crackles noted to left posterior lobe). No: Lungs Clear Cardiovascular: Normal Peripheral Pulses, Regular Rate, Rhythm, No Edema, No Murmur Peripheral Pulses: 2+: Radial (L), Radial (R) GI/Abdominal: Normal Bowel Sounds, Soft, No Distention, Tender (In all quadrants with palpation) (Male) Exam: Deferred Rectal (Males) Exam: Deferred Back Exam: Normal Inspection, Full Range of Motion Extremities: Normal Inspection, Normal Range of Motion, Non-Tender, No Pedal Edema, Normal Capillary Refill Neurological: Alert, Oriented (To person and place only) Psychiatric: Normal Affect, Normal Mood Skin Exam: Warm, Dry, Intact, Normal Color, No Rash Lymphatic: No Adenopathy #1 Interpretation EKG Date: 09/12/20 Time: 08:36 Rhythm: A-Fib Rate (Beats/Min): 117 [place]: Normal P-Wave: Absent QRS: RBBB Comparison: No Change (Per Dr. Mooney interpretation: Atrial fibrillation rate 117, ST depression V2 through V5, 2, aVF, right bundle branch block.) Course - Vital Signs Text/Narrative:: Recheck of the patient's blood pressure reveals 90/65. I have ordered a 500 cc normal saline bolus as patient appears to be dehydrated. I have also ordered a CBC, CMP, magnesium, troponin, CRP, proBNP, chest x-ray and an EKG. Last Recorded V/S: Last Vital Signs Temp 98.1 F 09/12/20 15:17 Pulse 89 09/12/20 15:17 Resp 14 09/12/20 15:17 BP 120/75 09/12/20 15:17 Pulse Ox 94 L 09/12/20 15:17 - Orders/Labs/Meds Orders: Active Orders 24 hr Category Date Time Status CULTURE BLOOD [BC] Stat Lab 09/12/20 09:35 Received CULTURE BLOOD [BC] Stat Lab 09/12/20 09:45 Received CULTURE URINE [RM] Stat Lab 09/12/20 10:20 Received Sodium Chloride 0.9% [Saline Flush] Med 09/12/20 08:51 Active 10 ml FLUSH ASDIRECTED PRN Blood Culture x2 Reflex Set [OM.PC] Stat Oth 09/12/20 09:15 Ordered Saline Lock Insert [OM.PC] Stat Oth 09/12/20 08:51 Ordered Medication Orders Acetaminophen (Tylenol) 650 mg PO Q4H PRN PRN Reason: Pain (Mild 1-3)/fever Allopurinol (Zyloprim) 200 mg PO DAILY ALENA Apixaban (Eliquis) 2.5 mg PO BID ALENA Aspirin (Aspirin) 81 mg PO DAILY ALENA Bisacodyl (Dulcolax) 10 mg RECTAL DAILY PRN PRN Reason: Constipation Donepezil HCl (Aricept) 10 mg PO DAILY [facility] Enalapril Maleate (Vasotec) 5 mg PO DAILY [facility] Famotidine (Pepcid) 20 mg PO DAILY [facility] Furosemide (Lasix) 40 mg PO DAILY [facility] Piperacillin Sod/Tazobactam (Sod 4.5 gm/ Sodium Chloride) 100 mls @ 25 mls/hr IV Q8H [facility] Lactated Ringer's (Ringers, Lactated) 1,000 mls @ 75 mls/hr IV ASDIRECTED ALENA Stop: 09/13/20 01:19 Last Admin: 09/12/20 12:55 Dose: 75 mls/hr Documented by: YEFRI Insulin Glargine (Lantus) 10 unit SUBCUT DAILY [facility] Insulin Human Lispro (Humalog) 0 unit SUBCUT QIDACANDBED [facility], [facility]; Protocol Isosorbide Mononitrate (Imdur) 30 mg PO DAILY [facility] Metoprolol Tartrate (Lopressor) 37.5 mg PO BID [facility] Senna/Docusate Sodium (Senna Plus) 1 tab PO DAILY PRN PRN Reason: Constipation Sertraline HCl (Zoloft) 50 mg PO DAILY [facility] Sodium Chloride (Saline Flush) 10 ml FLUSH ASDIRECTED PRN PRN Reason: Keep Vein Open Last Admin: 09/12/20 08:54 Dose: 10 ml Documented by: SHIVAM Labs: Laboratory Tests 09/12/20 09/12/20 09/12/20 Range/Units 08:40 08:40 08:40 WBC 16.44 H (4.23-9.07) K/mm3 RBC 3.82 L (4.63-6.08) M/mm3 Hgb 11.7 L (13.7-17.5) gm/dl Hct 36.7 L (40.1-51.0) % MCV 96.1 H (79.0-92.2) fl MCH 30.6 (25.7-32.2) pg MCHC 31.9 L (32.2-35.5) g/dl RDW Std Deviation 47.4 H (35.1-43.9) fL Plt Count 188 (163-337) K/mm3 MPV 10.7 (9.4-12.3) fl Neut % (Auto) 88.5 H (34.0-67.9) % Lymph % (Auto) 5.8 L (21.8-53.1) % [place] % (Auto) 5.4 (5.3-12.2) % Eos % (Auto) 0.1 L (0.8-7.0) Baso % (Auto) 0.0 L (0.1-1.2) % Neut # (Auto) 14.56 H (1.78-5.38) K/mm3 Lymph # (Auto) 0.95 L (1.32-3.57) K/mm3 [place] # (Auto) 0.89 H (0.30-0.82) K/mm3 Eos # (Auto) 0.01 L (0.04-0.54) K/mm3 Baso # (Auto) 0.00 L (0.01-0.08) K/mm3 Manual Slide Review Abnormal smear Sodium 145 (136-145) mEq/L Potassium 3.7 (3.5-5.1) mEq/L Chloride 105 (98-107) mEq/L Carbon Dioxide 29 (21-32) mEq/L Anion Gap 14.7 (5-15) BUN 40 H (7-18) mg/dL Creatinine 1.8 H (0.7-1.3) mg/dL Est Cr Clr Drug Dosing 27.05 mL/min Estimated GFR (MDRD) 36 (>60) mL/min BUN/Creatinine Ratio 22.2 H (14-18) Glucose 188 H (83-115) mg/dL Lactic Acid (0.4-2.0) mmol/L Calcium 8.9 (8.5-10.1) mg/dL Magnesium 2.2 (1.8-2.4) mg/dl Total Bilirubin 1.1 H (0.2-1.0) mg/dL AST 15 (15-37) U/L ALT 21 (16-63) U/L Alkaline Phosphatase 80 (46-116) U/L Troponin I 0.090 H* (0.00-0.056) ng/mL C-Reactive Protein 22.3 H* (<1.0) mg/dL NT-Pro-B Natriuret Pep 7829 H (0-450) pg/mL Total Protein 6.9 (6.4-8.2) g/dl Albumin 3.1 L (3.4-5.0) g/dl Globulin 3.8 gm/dL Albumin/Globulin Ratio 0.8 L (1-2) Amylase (20-160) U/L Lipase (73-393) U/L Urine Color (Yellow) Urine Appearance (Clear) Urine pH (5.0-8.0) Ur Specific [place] (1.005-1.030) Urine Protein (Negative) Urine Glucose (UA) (Negative) Urine Ketones (Negative) Urine Occult Blood (Negative) Urine Nitrite (Negative) Urine Bilirubin (Negative) Urine Urobilinogen (0.2-1.0) Ur Leukocyte Esterase (Negative) U Hyaline Cast (Auto) (0-5) /lpf Urine RBC (0-5) /hpf Urine WBC (0-5) /hpf Ur Squamous Epith Cells (0-5) /hpf Amorphous Sediment (NOT SEEN) /hpf Urine Bacteria (FEW) /hpf Urine Mucus (FEW) /hpf SARS-CoV-2 RNA (CORDELL) (NEGATIVE) 09/12/20 09/12/20 09/12/20 Range/Units 08:40 08:45 09:35 WBC (4.23-9.07) K/mm3 RBC (4.63-6.08) M/mm3 Hgb (13.7-17.5) gm/dl Hct (40.1-51.0) % MCV (79.0-92.2) fl MCH (25.7-32.2) pg MCHC (32.2-35.5) g/dl RDW Std Deviation (35.1-43.9) fL Plt Count (163-337) K/mm3 MPV (9.4-12.3) fl Neut % (Auto) (34.0-67.9) % Lymph % (Auto) (21.8-53.1) % [place] % (Auto) (5.3-12.2) % Eos % (Auto) (0.8-7.0) Baso % (Auto) (0.1-1.2) % Neut # (Auto) (1.78-5.38) K/mm3 Lymph # (Auto) (1.32-3.57) K/mm3 [place] # (Auto) (0.30-0.82) K/mm3 Eos # (Auto) (0.04-0.54) K/mm3 Baso # (Auto) (0.01-0.08) K/mm3 Manual Slide Review Sodium (136-145) mEq/L Potassium (3.5-5.1) mEq/L Chloride (98-107) mEq/L Carbon Dioxide (21-32) mEq/L Anion Gap (5-15) BUN (7-18) mg/dL Creatinine (0.7-1.3) mg/dL Est Cr Clr Drug Dosing mL/min Estimated GFR (MDRD) (>60) mL/min BUN/Creatinine Ratio (14-18) Glucose (83-115) mg/dL Lactic Acid 1.2 (0.4-2.0) mmol/L Calcium (8.5-10.1) mg/dL Magnesium (1.8-2.4) mg/dl Total Bilirubin (0.2-1.0) mg/dL AST (15-37) U/L ALT (16-63) U/L Alkaline Phosphatase (46-116) U/L Troponin I (0.00-0.056) ng/mL C-Reactive Protein (<1.0) mg/dL NT-Pro-B Natriuret Pep (0-450) pg/mL Total Protein (6.4-8.2) g/dl Albumin (3.4-5.0) g/dl Globulin gm/dL Albumin/Globulin Ratio (1-2) Amylase 23 (20-160) U/L Lipase 79 (73-393) U/L Urine Color (Yellow) Urine Appearance (Clear) Urine pH (5.0-8.0) Ur Specific [place] (1.005-1.030) Urine Protein (Negative) Urine Glucose (UA) (Negative) Urine Ketones (Negative) Urine Occult Blood (Negative) Urine Nitrite (Negative) Urine Bilirubin (Negative) Urine Urobilinogen (0.2-1.0) Ur Leukocyte Esterase (Negative) U Hyaline Cast (Auto) (0-5) /lpf Urine RBC (0-5) /hpf Urine WBC (0-5) /hpf Ur Squamous Epith Cells (0-5) /hpf Amorphous Sediment (NOT SEEN) /hpf Urine Bacteria (FEW) /hpf Urine Mucus (FEW) /hpf SARS-CoV-2 RNA (CORDELL) (NEGATIVE) 09/12/20 09/12/20 Range/Units 10:20 10:20 WBC (4.23-9.07) K/mm3 RBC (4.63-6.08) M/mm3 Hgb (13.7-17.5) gm/dl Hct (40.1-51.0) % MCV (79.0-92.2) fl MCH (25.7-32.2) pg MCHC (32.2-35.5) g/dl RDW Std Deviation (35.1-43.9) fL Plt Count (163-337) K/mm3 MPV (9.4-12.3) fl Neut % (Auto) (34.0-67.9) % Lymph % (Auto) (21.8-53.1) % [place] % (Auto) (5.3-12.2) % Eos % (Auto) (0.8-7.0) Baso % (Auto) (0.1-1.2) % Neut # (Auto) (1.78-5.38) K/mm3 Lymph # (Auto) (1.32-3.57) K/mm3 [place] # (Auto) (0.30-0.82) K/mm3 Eos # (Auto) (0.04-0.54) K/mm3 Baso # (Auto) (0.01-0.08) K/mm3 Manual Slide Review Sodium (136-145) mEq/L Potassium (3.5-5.1) mEq/L Chloride (98-107) mEq/L Carbon Dioxide (21-32) mEq/L Anion Gap (5-15) BUN (7-18) mg/dL Creatinine (0.7-1.3) mg/dL Est Cr Clr Drug Dosing mL/min Estimated GFR (MDRD) (>60) mL/min BUN/Creatinine Ratio (14-18) Glucose (83-115) mg/dL Lactic Acid (0.4-2.0) mmol/L Calcium (8.5-10.1) mg/dL Magnesium (1.8-2.4) mg/dl Total Bilirubin (0.2-1.0) mg/dL AST (15-37) U/L ALT (16-63) U/L Alkaline Phosphatase (46-116) U/L Troponin I (0.00-0.056) ng/mL C-Reactive Protein (<1.0) mg/dL NT-Pro-B Natriuret Pep (0-450) pg/mL Total Protein (6.4-8.2) g/dl Albumin (3.4-5.0) g/dl Globulin gm/dL Albumin/Globulin Ratio (1-2) Amylase (20-160) U/L Lipase (73-393) U/L Urine Color Yellow (Yellow) Urine Appearance Slt cloudy H (Clear) Urine pH 5.5 (5.0-8.0) Ur Specific [place] > or = 1.030 (1.005-1.030) Urine Protein 1+ H (Negative) Urine Glucose (UA) Negative (Negative) Urine Ketones Negative (Negative) Urine Occult Blood 1+ H (Negative) Urine Nitrite Negative (Negative) Urine Bilirubin 1+ H (Negative) Urine Urobilinogen 1.0 (0.2-1.0) Ur Leukocyte Esterase 1+ H (Negative) U Hyaline Cast (Auto) 5-10 H (0-5) /lpf Urine RBC 20-30 H (0-5) /hpf Urine WBC 40-50 H (0-5) /hpf Ur Squamous Epith Cells 5-10 H (0-5) /hpf Amorphous Sediment Moderate H (NOT SEEN) /hpf Urine Bacteria Many H (FEW) /hpf Urine Mucus Not seen (FEW) /hpf SARS-CoV-2 RNA (CORDELL) Negative (NEGATIVE) Meds: Medications Generic Name Dose Route Start Last Admin Trade Name Freq PRN Reason Stop Dose Admin Acetaminophen 650 mg 09/12/20 11:44 Tylenol PO Q4H PRN Pain (Mild 1-3)/fever Allopurinol 200 mg 09/13/20 09:00 Zyloprim PO DAILY ALENA Apixaban 2.5 mg 09/12/20 21:00 Eliquis PO BID ALENA Aspirin 81 mg 09/13/20 09:00 Aspirin PO DAILY ALENA Bisacodyl 10 mg 09/12/20 11:58 Dulcolax RECTAL DAILY PRN Constipation Donepezil HCl 10 mg 09/13/20 09:00 Aricept PO DAILY [facility], [facility]1983 Enalapril Maleate 5 mg 09/13/20 09:00 Vasotec PO DAILY ALENA Famotidine 20 mg 09/13/20 09:00 Pepcid PO DAILY ALENA Furosemide 40 mg 09/13/20 09:00 Lasix PO DAILY [facility], 1928[facility]1983 Piperacillin Sod/Tazobactam 100 mls @ 25 mls/hr 09/12/20 20:30 Sod 4.5 gm/ Sodium Chloride IV Q8H ALENA Lactated Ringer's 1,000 mls @ 75 mls/hr 09/12/20 12:00 09/12/20 12:55 Ringers, Lactated IV 09/13/20 01:19 75 mls/hr ASDIRECTED ALENA Administration Insulin Glargine 10 unit 09/13/20 09:00 Lantus SUBCUT DAILY [facility], [facility]1983 Insulin Human Lispro 0 unit 09/12/20 17:00 Humalog SUBCUT QIDACANDBED [facility], [facility]1983 Protocol Isosorbide Mononitrate 30 mg 09/13/20 09:00 Imdur PO DAILY [facility], [facility]1983 Metoprolol Tartrate 37.5 mg 09/12/20 21:00 Lopressor PO BID [facility]1983 Senna/Docusate Sodium 1 tab 09/12/20 11:58 Senna Plus PO DAILY PRN Constipation Sertraline HCl 50 mg 09/13/20 09:00 Zoloft PO DAILY [facility]1983 Sodium Chloride 10 ml 09/12/20 08:51 09/12/20 08:54 Saline Flush FLUSH 10 ml ASDIRECTED PRN Administration Keep Vein Open Discontinued Medications Generic Name Dose Route Start Last Admin Trade Name Freq PRN Reason Stop Dose Admin Sodium Chloride 500 mls @ 500 mls/hr 09/12/20 08:57 09/12/20 09:21 Normal Saline IV 09/12/20 09:56 500 mls/hr .BOLUS ONE Administration Ceftriaxone Sodium 2 gm/ 100 mls @ 200 mls/hr 09/12/20 10:39 09/12/20 11:17 Sodium Chloride IV 09/12/20 11:08 200 mls/hr ONETIME ONE Administration Piperacillin Sod/Tazobactam 100 mls @ 200 mls/hr 09/12/20 12:30 09/12/20 12:55 Sod 4.5 gm/ Sodium Chloride IV 09/12/20 12:59 200 mls/hr ONETIME ONE Administration - Re-Assessments/Exams Free Text/Narrative Re-Assessment/Exam: 09/12/20 10:05 Portable view of the chest radiologist impression: 1. Minimal atelectasis located adjacent to the left hemidiaphragm. 2. Previous findings of CHF have resolved. 3. Nothing acute is otherwise seen. 09/12/20 10:43 Labs reveal a WBC of 16.44, hemoglobin 11.7, hematocrit 36.7, neutrophil percentage 88.5, lymphocyte percentage 5.8, sodium 145, potassium 3.7, carbon dioxide 29, anion gap 14.7, BUN 40, creatinine 1.8, glucose 188, magnesium 2.2, total bili 1.1, troponin 0 0.090, C-reactive protein 22.3, proBNP 7829, amylase 23, lipase 79 Patient does fall into sepsis criteria however he does have a history of congestive heart failure and I do not want to fluid overload him so I have given him a 500 mL bolus of normal saline at this time. 09/12/20 10:52 Urinalysis reveals 1+ protein, 1+ occult blood, nitrate negative, 1+ bilirubin, 1+ leuk esterase, 5-10 casts, urine RBC 20-30, urine WBC 40-50, urine squamous epithelial cells 5-10 I have ordered 2 g of Rocephin on this patient 09/12/20 11:04 Lactic acid comes back at 1.2. 09/12/20 11:[address] Barrientos regarding admitting this patient and his he has agreed to accept him as an inpatient [facility] floor. Departure - Departure Time of Disposition: 12:28 Disposition: DC/Tfer to Critical Access [facility] Clinical Impression: Dehydration UTI (urinary tract infection) Qualifiers: Urinary tract infection type: acute cystitis Hematuria presence: with hematuria Qualified Code(s): N30.01 - Acute cystitis with hematuria Sepsis Event Note (ED) - Evaluation Sepsis Screening Result: No Definite Risk - Focused Exam Vital Signs: Vital Signs Temp Pulse Resp BP Pulse Ox 09/12/20 10:45 85 96/55 L 09/12/20 10:30 85 90/51 L 92 L 09/12/20 08:35 97.1 F 117 H 13 110/64 100 - My Orders Last 24 Hours: My Active Orders 09/12/20 08:51 Sodium Chloride 0.9% [Saline Flush] 10 ml FLUSH ASDIRECTED PRN Saline Lock Insert [OM.PC] Stat 09/12/20 09:15 Blood Culture x2 Reflex Set [OM.PC] Stat 09/12/20 09:35 CULTURE BLOOD [BC] Stat 09/12/20 09:45 CULTURE BLOOD [BC] Stat 09/12/20 10:20 CULTURE URINE [RM] Stat - Assessment/Plan Last 24 Hours: My Active Orders 09/12/20 08:51 Sodium Chloride 0.9% [Saline Flush] 10 ml FLUSH ASDIRECTED PRN Saline Lock Insert [OM.PC] Stat 09/12/20 09:15 Blood Culture x2 Reflex Set [OM.PC] Stat 09/12/20 09:35 CULTURE BLOOD [BC] Stat 09/12/20 09:45 CULTURE BLOOD [BC] Stat 09/12/20 10:20 CULTURE URINE [RM] Stat
--- NOTE | 2020-09-12 09:55 | CR ---
Chest: Portable view of the chest was obtained. Comparison: Prior chest x-ray of 09/06/20. Previous study showed diffuse increased lung markings presumably due to pulmonary vascular congestion. These findings have resolved from prior exam. There is minimal atelectasis adjacent to the left hemidiaphragm. Lungs otherwise are clear. Heart size is less prominent. Upper mediastinum is stable. Bony structures are stable. Impression: 1. Minimal atelectasis located adjacent to the left hemidiaphragm. 2. Previous findings of CHF have resolved. 3. Nothing acute is otherwise seen. Diagnostic code #2
[2020-09-12] MEDS ORDERED: cefTRIAXone 2 GM in Sodium Chloride 0.9% 100 ML IV ONE (10:39)
--- NOTE | 2020-09-12 11:26 | PCM.HP.2 ---
<Young Swanson - Last Filed: 09/12/20 12:59> H&P History of Present Illness - General Date of Service: 09/12/20 Admit Problem/Dx: Admission Diagnosis/Problem Admission Diagnosis/Problem UTI (urinary tract infection), uncomplicated Source of Information: Patient, Prison Records, Old Records, Provider, RN, RN Notes Reviewed History Limitations: Reports: Altered Mental Status (Baseline significant dementia ) - History of Present Illness Initial Comments - Free Text/Narative: This is an 84-year-old male who presents to our ED on 09/12/2020 via [facility] from [facility] where he resides with reports of chest discomfort and tachycardia. Patient has baseline significant dementia and therefore is hard to get much of a history from him. Per intermediate records and our old records patient was sent to [place] on 09/06/2020 due to heart failure and positive troponins. Is also noted to have A. fib. It appears his Cardizem was discontinued during that hospitalization. Today on admission patient reports chest discomfort but he was unable to elaborate. Reports pain is worse during chest palpation and when taking a deep breath. He is noted to be quite dry with no edema. In the ED he is noted to be afebrile with a temp of 97.1 but tachycardic at 117. Respirations are 13. Blood pressure is 110/64. Pulse ox is 100% on room air. Twelve-lead EKG is obtained showing atrial fibrillation at a rate of 117. There is a right bundle branch block noted and ST depression in V2 through V5, II, and aVF. Labs are obtained showing a WBC of 16.44. Hemoglobin 11.7. Platelets 188. Neutrophils are elevated at 14.56. Sodium is 145. Potassium 3.7. Chloride 105. Carbon oxide 29. Anion gap 14.7. BUN is high at 40. Creatinine is 1.8. GFR is 36. Glucose is 188. Calcium 8.9. Magnesium is 2.2. Bilirubin 1.1. AST is 15, ALT 21, alkaline phosphatase 80. Troponin is positive at 0.090. CRP is quite high at 22.3. proBNP is 7829. Protein is 6.9. Albumin is 3.1. Lactic acid is 1.2. Amylase is 23. Lipase is 79. UA is positive with concentrated urine that is cloudy, 1+ protein, 1+ occult blood, 1+ bilirubin, 1+ leukocyte esterase, 5-10 hyaline casts, 20-30 RBCs, 40-50 WBCs, 5-10 squamous epithelial cells, moderate amorphous sediment, and many bacteria are seen. SARS-CoV-2 virus is negative. He is given Rocephin 2 g and a 500 mL fluid bolus. There are concerns of the patient having had CHF in the past. Chest x- ray is obtained and interpreted by Dr. Mattson as "1. Minimal atelectasis located adjacent to the left hemidiaphragm. 2. Previous findings of CHF have resolved. 3. Nothing acute is otherwise seen." He carries a history of dysphagia with nectar thickened liquids and crushed meds, along with pured foods. He also carries a history of A. 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 As noted he resides at [facility]. He the intermediate paperwork is a full code on palliative care. Per ED provider family was contacted to address this and they report they would like to honor their father's wishes but that they should be contacted immediately should he go into cardiac or respiratory arrest. Patient is asked multiple times by multiple providers about his CODE STATUS and he reports full code. He is subsequently admitted to the medical floor on telemetry. - Related Data Allergies/Adverse Reactions: Allergies Allergy/AdvReac Type Severity Reaction Status Date / Time No Known Allergies Allergy Verified 09/12/20 13:48 Home Medications: Home Meds RX: Insulin Detemir [Levemir Flexpen] 10 unit SQ DAILY 06/05/15 [History] Acetaminophen [Tylenol] 650 mg PO QID PRN 07/11/15 [History] RX: Enalapril Maleate 5 mg PO DAILY 07/11/15 [History] RX: Metoprolol Tartrate [Lopressor] 37.5 mg PO BID 07/11/15 [History] RX: allopurinoL [Zyloprim] 200 mg PO DAILY 07/11/15 [History] Sertraline [Zoloft] 50 mg PO DAILY 07/11/15 [History] Bisacodyl [Dulcolax] 10 mg RECTAL DAILY PRN 07/16/16 [History] Crush Medications 1 dose PO ASDIRECTED 07/16/16 [History] Docusate Sodium/Sennosides [Senna Plus] 2 tab PO BID 07/16/16 [History] Menthol/Camphor [Sarna Anti-Itch] 1 applic TP BEDTIME 07/16/16 [History] [place] Thick Liquids 1 dose PO ASDIRECTED 07/16/16 [History] Nitroglycerin [Nitrostat] 0.4 mg SL Q5M PRN 07/16/16 [History] Potassium Chloride [Klor-Con M20] 20 meq PO DAILY 07/16/16 [History] Triamcinolone Acetonide [Triamcinolone Acetonide 0.1% Crm] 1 applic TOP BID PRN 07/16/16 [History] amLODIPine [Norvasc] 5 mg PO DAILY 07/16/16 [History] atorvaSTATin [Lipitor] 20 mg PO DAILY 07/16/16 [History] Apixaban [Eliquis] 5 mg PO BID 02/09/20 [History] RX: Cetirizine [ZyrTEC] 5 mg PO DAILY 02/09/20 [History] RX: Donepezil [Aricept] 10 mg PO DAILY 09/06/20 [History] RX: Isosorbide Mononitrate [Imdur] 30 mg PO DAILY 09/06/20 [History] Furosemide [Lasix] 40 mg PO DAILY 09/12/20 [History] Insulin NPH Human Isophane [Novolin N Flexpen] 1 dose SUBCUT QID PRN 09/12/20 [History] RX: Acetaminophen 650 mg PO BID 09/12/20 [History] RX: Aspirin 81 mg PO DAILY 09/12/20 [History] RX: Cranberry 425 mg PO DAILY 09/12/20 [History] Past Medical History HEENT History: Reports: Allergic Rhinitis Other HEENT History: dysphasia, is on nectar thickened liquids with crushed meds/pureed foods Cardiovascular History: Reports: Afib, CAD, High Cholesterol, Hypertension, ND Gastrointestinal History: Reports: GERD, Other (See Below) Other Gastrointestinal History: dysphagia Genitourinary History: Reports: Urinary Incontinence Musculoskeletal History: Reports: Gout Other Musculoskeletal History: chronic muscle weakness, lack of coordination, abnormal posture, hemiplegia and hemiparesis left side, gout Neurological History: Reports: CVA, Seizure, Other (See Below) Other Neuro History: 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 Psychiatric History: Reports: Depression, Other (See Below) Other Psychiatric History: insomnia Endocrine/Metabolic History: Reports: Diabetes, Type II - Infectious Disease History Infectious Disease History: Reports: Novel Coronavirus Social & Family History - Family History Family Medical History: No Pertinent Family History - Tobacco Use Tobacco Use Status *Q: Unknown Ever Used Tobacco - Caffeine Use Caffeine Use: Reports: None - Recreational Drug Use Recreational Drug Use: No - Living Situation & Occupation Living situation: Reports: Extended Care Facility ([facility]) Occupation: Retired H&P Review of Systems - Review of Systems: Review Of Systems: See Below Free Text/Narrative: It should be noted patient does have significant baseline dementia so unsure how reliable ROS as. General: Reports: No Symptoms. Denies: Fever, Chills, Malaise, Weakness, Fatigue HEENT: Reports: No Symptoms. Denies: Contact Lenses, Headaches, Sore Throat Pulmonary: Reports: No Symptoms. Denies: Shortness of Breath, Pleuritic Chest Pain, Cough, Sputum Cardiovascular: Reports: No Symptoms. Denies: Chest Pain, Palpitations, Dyspnea on Exertion, Edema, Lightheadedness Gastrointestinal: Reports: No Symptoms, Abdominal Pain (epigastric ). Denies: Constipation, Diarrhea, Nausea, Vomiting Genitourinary: Reports: Incontinence (chronic ). Denies: Pain Musculoskeletal: Reports: No Symptoms Skin: Reports: No Symptoms. Denies: Cyanosis Psychiatric: Reports: Confusion (Baseline significant ) Neurological: Reports: Pre-Existing Deficit (Pre-existing left nondominant hemiplegia and hemiparesis), Difficulty Walking, Gait Disturbance Hematologic/Lymphatic: Reports: No Symptoms Immunologic: Reports: No Symptoms Exam - Exam Exam: See Below - Vital Signs Vital Signs: Last Vital Signs Temp 97.1 F 09/12/20 08:35 Pulse 117 H 09/12/20 08:35 Resp 13 09/12/20 08:35 BP 110/64 09/12/20 08:35 Pulse Ox 100 09/12/20 08:35 Weight: 77.111 kg - Exam Quality Assessment: DVT Prophylaxis (home eliquis ). No: Supplemental Oxygen, Urinary Catheter General: Alert, Cooperative. No: Oriented, Mild Distress HEENT: Conjunctiva Clear, EACs Clear. No: Mucosa Moist & [place] (dry tongue ) Neck: Supple, Trachea Midline Lungs: Normal Respiratory Effort, Crackles Cardiovascular: Irregular Rhythm (A-fib), Tachycardia GI/Abdominal Exam: Normal Bowel Sounds, Soft, Non-Tender, No Distention, Tender (Epigastric with deep palpation ) (Male) Exam: Deferred Rectal (Males) Exam: Deferred Back Exam: Decreased Range of Motion. No: Normal Inspection, CVA Tenderness (L), CVA Tenderness (R) Extremities: Normal Inspection, Non-Tender, No Pedal Edema, Limited Range of Motion Skin: Warm, Dry, Intact Neurological: Cranial Nerves Intact (Grossly ) Neuro Extensive - Mental Status: Alert, Normal Mood/Affect, Disorientation to Time. No: Oriented x3, Memory Intact, Disorientation to Person, Disorientation to Place - Patient Data Lab Results Last 24 hrs: Laboratory Results - last 24 hr 09/12/20 09/12/20 09/12/20 Range/Units 08:40 08:40 08:40 WBC 16.44 H (4.23-9.07) K/mm3 RBC 3.82 L (4.63-6.08) M/mm3 Hgb 11.7 L (13.7-17.5) gm/dl Hct 36.7 L (40.1-51.0) % MCV 96.1 H (79.0-92.2) fl MCH 30.6 (25.7-32.2) pg MCHC 31.9 L (32.2-35.5) g/dl RDW Std Deviation 47.4 H (35.1-43.9) fL Plt Count 188 (163-337) K/mm3 MPV 10.7 (9.4-12.3) fl Neut % (Auto) 88.5 H (34.0-67.9) % Lymph % (Auto) 5.8 L (21.8-53.1) % [place] % (Auto) 5.4 (5.3-12.2) % Eos % (Auto) 0.1 L (0.8-7.0) Baso % (Auto) 0.0 L (0.1-1.2) % Neut # (Auto) 14.56 H (1.78-5.38) K/mm3 Lymph # (Auto) 0.95 L (1.32-3.57) K/mm3 [place] # (Auto) 0.89 H (0.30-0.82) K/mm3 Eos # (Auto) 0.01 L (0.04-0.54) K/mm3 Baso # (Auto) 0.00 L (0.01-0.08) K/mm3 Manual Slide Review Abnormal smear Sodium 145 (136-145) mEq/L Potassium 3.7 (3.5-5.1) mEq/L Chloride 105 (98-107) mEq/L Carbon Dioxide 29 (21-32) mEq/L Anion Gap 14.7 (5-15) BUN 40 H (7-18) mg/dL Creatinine 1.8 H (0.7-1.3) mg/dL Est Cr Clr Drug Dosing 27.05 mL/min Estimated GFR (MDRD) 36 (>60) mL/min BUN/Creatinine Ratio 22.2 H (14-18) Glucose 188 H (83-115) mg/dL Lactic Acid (0.4-2.0) mmol/L Calcium 8.9 (8.5-10.1) mg/dL Magnesium 2.2 (1.8-2.4) mg/dl Total Bilirubin 1.1 H (0.2-1.0) mg/dL AST 15 (15-37) U/L ALT 21 (16-63) U/L Alkaline Phosphatase 80 (46-116) U/L Troponin I 0.090 H* (0.00-0.056) ng/mL C-Reactive Protein 22.3 H* (<1.0) mg/dL NT-Pro-B Natriuret Pep 7829 H (0-450) pg/mL Total Protein 6.9 (6.4-8.2) g/dl Albumin 3.1 L (3.4-5.0) g/dl Globulin 3.8 gm/dL Albumin/Globulin Ratio 0.8 L (1-2) Amylase (20-160) U/L Lipase (73-393) U/L Urine Color (Yellow) Urine Appearance (Clear) Urine pH (5.0-8.0) Ur Specific [place] (1.005-1.030) Urine Protein (Negative) Urine Glucose (UA) (Negative) Urine Ketones (Negative) Urine Occult Blood (Negative) Urine Nitrite (Negative) Urine Bilirubin (Negative) Urine Urobilinogen (0.2-1.0) Ur Leukocyte Esterase (Negative) U Hyaline Cast (Auto) (0-5) /lpf Urine RBC (0-5) /hpf Urine WBC (0-5) /hpf Ur Squamous Epith Cells (0-5) /hpf Amorphous Sediment (NOT SEEN) /hpf Urine Bacteria (FEW) /hpf Urine Mucus (FEW) /hpf SARS-CoV-2 RNA (CORDELL) (NEGATIVE) 09/12/20 09/12/20 09/12/20 Range/Units 08:40 08:45 09:35 WBC (4.23-9.07) K/mm3 RBC (4.63-6.08) M/mm3 Hgb (13.7-17.5) gm/dl Hct (40.1-51.0) % MCV (79.0-92.2) fl MCH (25.7-32.2) pg MCHC (32.2-35.5) g/dl RDW Std Deviation (35.1-43.9) fL Plt Count (163-337) K/mm3 MPV (9.4-12.3) fl Neut % (Auto) (34.0-67.9) % Lymph % (Auto) (21.8-53.1) % [place] % (Auto) (5.3-12.2) % Eos % (Auto) (0.8-7.0) Baso % (Auto) (0.1-1.2) % Neut # (Auto) (1.78-5.38) K/mm3 Lymph # (Auto) (1.32-3.57) K/mm3 [place] # (Auto) (0.30-0.82) K/mm3 Eos # (Auto) (0.04-0.54) K/mm3 Baso # (Auto) (0.01-0.08) K/mm3 Manual Slide Review Sodium (136-145) mEq/L Potassium (3.5-5.1) mEq/L Chloride (98-107) mEq/L Carbon Dioxide (21-32) mEq/L Anion Gap (5-15) BUN (7-18) mg/dL Creatinine (0.7-1.3) mg/dL Est Cr Clr Drug Dosing mL/min Estimated GFR (MDRD) (>60) mL/min BUN/Creatinine Ratio (14-18) Glucose (83-115) mg/dL Lactic Acid 1.2 (0.4-2.0) mmol/L Calcium (8.5-10.1) mg/dL Magnesium (1.8-2.4) mg/dl Total Bilirubin (0.2-1.0) mg/dL AST (15-37) U/L ALT (16-63) U/L Alkaline Phosphatase (46-116) U/L Troponin I (0.00-0.056) ng/mL C-Reactive Protein (<1.0) mg/dL NT-Pro-B Natriuret Pep (0-450) pg/mL Total Protein (6.4-8.2) g/dl Albumin (3.4-5.0) g/dl Globulin gm/dL Albumin/Globulin Ratio (1-2) Amylase 23 (20-160) U/L Lipase 79 (73-393) U/L Urine Color (Yellow) Urine Appearance (Clear) Urine pH (5.0-8.0) Ur Specific [place] (1.005-1.030) Urine Protein (Negative) Urine Glucose (UA) (Negative) Urine Ketones (Negative) Urine Occult Blood (Negative) Urine Nitrite (Negative) Urine Bilirubin (Negative) Urine Urobilinogen (0.2-1.0) Ur Leukocyte Esterase (Negative) U Hyaline Cast (Auto) (0-5) /lpf Urine RBC (0-5) /hpf Urine WBC (0-5) /hpf Ur Squamous Epith Cells (0-5) /hpf Amorphous Sediment (NOT SEEN) /hpf Urine Bacteria (FEW) /hpf Urine Mucus (FEW) /hpf SARS-CoV-2 RNA (CORDELL) (NEGATIVE) 09/12/20 09/12/20 Range/Units 10:20 10:20 WBC (4.23-9.07) K/mm3 RBC (4.63-6.08) M/mm3 Hgb (13.7-17.5) gm/dl Hct (40.1-51.0) % MCV (79.0-92.2) fl MCH (25.7-32.2) pg MCHC (32.2-35.5) g/dl RDW Std Deviation (35.1-43.9) fL Plt Count (163-337) K/mm3 MPV (9.4-12.3) fl Neut % (Auto) (34.0-67.9) % Lymph % (Auto) (21.8-53.1) % [place] % (Auto) (5.3-12.2) % Eos % (Auto) (0.8-7.0) Baso % (Auto) (0.1-1.2) % Neut # (Auto) (1.78-5.38) K/mm3 Lymph # (Auto) (1.32-3.57) K/mm3 [place] # (Auto) (0.30-0.82) K/mm3 Eos # (Auto) (0.04-0.54) K/mm3 Baso # (Auto) (0.01-0.08) K/mm3 Manual Slide Review Sodium (136-145) mEq/L Potassium (3.5-5.1) mEq/L Chloride (98-107) mEq/L Carbon Dioxide (21-32) mEq/L Anion Gap (5-15) BUN (7-18) mg/dL Creatinine (0.7-1.3) mg/dL Est Cr Clr Drug Dosing mL/min Estimated GFR (MDRD) (>60) mL/min BUN/Creatinine Ratio (14-18) Glucose (83-115) mg/dL Lactic Acid (0.4-2.0) mmol/L Calcium (8.5-10.1) mg/dL Magnesium (1.8-2.4) mg/dl Total Bilirubin (0.2-1.0) mg/dL AST (15-37) U/L ALT (16-63) U/L Alkaline Phosphatase (46-116) U/L Troponin I (0.00-0.056) ng/mL C-Reactive Protein (<1.0) mg/dL NT-Pro-B Natriuret Pep (0-450) pg/mL Total Protein (6.4-8.2) g/dl Albumin (3.4-5.0) g/dl Globulin gm/dL Albumin/Globulin Ratio (1-2) Amylase (20-160) U/L Lipase (73-393) U/L Urine Color Yellow (Yellow) Urine Appearance Slt cloudy H (Clear) Urine pH 5.5 (5.0-8.0) Ur Specific [place] > or = 1.030 (1.005-1.030) Urine Protein 1+ H (Negative) Urine Glucose (UA) Negative (Negative) Urine Ketones Negative (Negative) Urine Occult Blood 1+ H (Negative) Urine Nitrite Negative (Negative) Urine Bilirubin 1+ H (Negative) Urine Urobilinogen 1.0 (0.2-1.0) Ur Leukocyte Esterase 1+ H (Negative) U Hyaline Cast (Auto) 5-10 H (0-5) /lpf Urine RBC 20-30 H (0-5) /hpf Urine WBC 40-50 H (0-5) /hpf Ur Squamous Epith Cells 5-10 H (0-5) /hpf Amorphous Sediment Moderate H (NOT SEEN) /hpf Urine Bacteria Many H (FEW) /hpf Urine Mucus Not seen (FEW) /hpf SARS-CoV-2 RNA (CORDELL) Negative (NEGATIVE) Result Diagrams: 09/12/20 08:40 09/12/20 08:40 Sepsis Event Note - Evaluation Sepsis Screening Result: Severe Sepsis Risk - Focused Exam Vital Signs: Vital Signs Temp Pulse Resp BP Pulse Ox 09/12/20 08:35 97.1 F 117 H 13 110/64 100 - Problem List (1) Dysphagia SNOMED Code(s): 67741973, 273995696 ICD Code: R13.10 - DYSPHAGIA, UNSPECIFIED Status: Chronic Priority: Medium Current Visit: Yes Qualifiers: Dysphagia type: unspecified Qualified Code(s): R13.10 - Dysphagia, unspecified (2) halfway resident SNOMED Code(s): 194787325 ICD Code: Z59.3 - PROBLEMS RELATED TO LIVING IN RESIDENTIAL INSTITUTION Status: Chronic Priority: Low Current Visit: No (3) CAD (coronary artery disease) SNOMED Code(s): 21827861 ICD Code: I25.10 - ATHSCL HEART DISEASE OF [place] CORONARY ARTERY W/O ANG PCTRS Status: Chronic Priority: Low Current Visit: No Qualifiers: Coronary Disease-Associated Artery/Lesion type: unspecified vessel or lesion type [place] vs. transplanted heart: [place] heart Associated angina: angina presence unspecified Qualified Code(s): I25.10 - Atherosclerotic heart disease of [place] coronary artery without angina pectoris (4) HLD (hyperlipidemia) SNOMED Code(s): 39734794 ICD Code: E78.5 - HYPERLIPIDEMIA, UNSPECIFIED Status: Chronic Priority: Low Current Visit: No Qualifiers: Hyperlipidemia type: unspecified Qualified Code(s): E78.5 - Hyperlipidemia, unspecified (5) HTN (hypertension) SNOMED Code(s): 88612111 ICD Code: I10 - ESSENTIAL (PRIMARY) HYPERTENSION Status: Chronic Priority: Medium Current Visit: No Qualifiers: Hypertension type: unspecified Qualified Code(s): I10 - Essential (primary) hypertension (6) History of ND (myocardial infarction) SNOMED Code(s): 047610897 ICD Code: I25.2 - OLD MYOCARDIAL INFARCTION Status: Chronic Priority: Low Current Visit: No (7) GERD (gastroesophageal reflux disease) SNOMED Code(s): 604176168 ICD Code: K21.9 - GASTRO-ESOPHAGEAL REFLUX DISEASE WITHOUT ESOPHAGITIS Status: Chronic Priority: Medium Current Visit: No Qualifiers: Esophagitis presence: esophagitis presence not specified Qualified Code(s): K21.9 - Gastro-esophageal reflux disease without esophagitis (8) Urinary incontinence SNOMED Code(s): 812352424 ICD Code: R32 - UNSPECIFIED URINARY INCONTINENCE Status: Chronic Priority: Medium Current Visit: No Qualifiers: Urinary Incontinence type: unspecified incontinence Qualified Code(s): R32 - Unspecified urinary incontinence (9) Gout SNOMED Code(s): 56488777 ICD Code: M10.9 - GOUT, UNSPECIFIED Status: Chronic Priority: Low Current Visit: No Qualifiers: Gout site: unspecified site Gout etiology: unspecified cause Chronicity: chronic Presence of tophus: without tophus Qualified Code(s): M1A.9XX0 - Chronic gout, unspecified, without tophus (tophi) (10) History of CVA (cerebrovascular accident) SNOMED Code(s): 761290252 ICD Code: Z86.73 - PRSNL HX OF TIA (TIA), AND CEREB INFRC W/O RESID DEFICITS Status: Chronic Priority: Medium Current Visit: No (11) History of seizure SNOMED Code(s): 238595547 ICD Code: Z87.898 - PERSONAL HISTORY OF OTHER SPECIFIED CONDITIONS Status: Chronic Priority: Medium Current Visit: No (12) Hemiplegia SNOMED Code(s): 00406172 ICD Code: G81.90 - HEMIPLEGIA, UNSPECIFIED AFFECTING UNSPECIFIED SIDE Status: Chronic Priority: Medium Current Visit: No Qualifiers: Hemiplegia type: unspecified type Hemiplegia etiology: unspecified etiology Hemiplegia laterality: left nondominant side Qualified Code(s): G81.94 - Hemiplegia, unspecified affecting left nondominant side (13) Hemiparesis SNOMED Code(s): 54488376 ICD Code: G81.90 - HEMIPLEGIA, UNSPECIFIED AFFECTING UNSPECIFIED SIDE Status: Chronic Priority: Medium Current Visit: No Qualifiers: Hemiparesis etiology: unspecified Hemiparesis laterality: left nondominant side Qualified Code(s): G81.94 - Hemiplegia, unspecified affecting left nondominant side (14) Depression SNOMED Code(s): 18769790 ICD Code: F32.9 - MAJOR DEPRESSIVE DISORDER, SINGLE EPISODE, UNSPECIFIED Status: Chronic Priority: Low Current Visit: No Qualifiers: Depression Type: unspecified Qualified Code(s): F32.9 - Major depressive disorder, single episode, unspecified (15) Type II diabetes mellitus SNOMED Code(s): 78918805 ICD Code: E11.9 - TYPE 2 DIABETES MELLITUS WITHOUT COMPLICATIONS Status: Chronic Priority: Medium Current Visit: No Qualifiers: Diabetes mellitus 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 insulin 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 Diabetes mellitus complication status: with other specified complication Qualified Code(s): E11.69 - Type 2 diabetes mellitus with other specified complication; Z79.4 - [facility] (current) use of insulin (16) Afib, Atrial fibrillation SNOMED Code(s): 76668261 ICD Code: I48.91 - UNSPECIFIED ATRIAL FIBRILLATION Status: Chronic Priority: Medium Current Visit: No (17) Chronic renal insufficiency SNOMED Code(s): 171034455 ICD Code: N18.9 - CHRONIC KIDNEY DISEASE, UNSPECIFIED Status: Chronic Priority: Medium Current Visit: No Qualifiers: Chronic kidney disease stage: stage 3 (moderate) Chronic kidney disease stage 3 subtype: stage 3b (GFR 30-44) Qualified Code(s): N18.32 - Chronic kidney disease, stage 3b (18) Dehydration SNOMED Code(s): 37084687 ICD Code: E86.0 - DEHYDRATION Status: Acute Priority: High Current Visit: Yes (19) Elevated troponin SNOMED Code(s): 727845287, 081635624, 060848577 ICD Code: R79.89 - OTHER SPECIFIED ABNORMAL FINDINGS OF BLOOD CHEMISTRY Status: Acute Priority: High Current Visit: Yes (20) Urinary tract infection SNOMED Code(s): 97179243 ICD Code: N39.0 - URINARY TRACT INFECTION, SITE NOT SPECIFIED Status: Acute Priority: High Current Visit: Yes Qualifiers: Urinary tract infection type: acute cystitis Hematuria presence: with hematuria Qualified Code(s): N30.01 - Acute cystitis with hematuria (21) Hypoalbuminemia SNOMED Code(s): 844218708 ICD Code: E88.09 - [facility] DISORDERS OF PLASMA-PROTEIN METABOLISM, NEC Status: Acute Priority: Medium Current Visit: Yes Problem List Initiated/Reviewed/Updated: Yes Orders Last 24hrs: Active Orders 24 hr Category Date Time Status Admission Status [Patient Status] [ADT] Routine ADT 09/12/20 11:24 Ordered EKG Documentation Completion [RC] STAT Care 09/12/20 08:52 Active CULTURE BLOOD [BC] Stat Lab 09/12/20 09:35 Received CULTURE BLOOD [BC] Stat Lab 09/12/20 09:45 Received CULTURE URINE [RM] Stat Lab 09/12/20 10:20 Received Sodium Chloride 0.9% [Saline Flush] Med 09/12/20 08:51 Active 10 ml FLUSH ASDIRECTED PRN Blood Culture x2 Reflex Set [OM.PC] Stat Oth 09/12/20 09:15 Ordered Saline Lock Insert [OM.PC] Stat Oth 09/12/20 08:51 Ordered Medication Orders Sodium Chloride (Saline Flush) 10 ml FLUSH ASDIRECTED PRN PRN Reason: Keep Vein Open Last Admin: 09/12/20 08:54 Dose: 10 ml Documented by: SHIVAM Assessment/Plan Comment:: Assessment - day of admission - 09/12/20 * 84 yo male who presents to ED with chest discomfort * Patient resides at [facility] * Significant baseline dementia, Hx/o A-fib, CAD, HLD, HTN, ND, urinary in continence, dyspagia, gout, CVA, left hemiplegia and hemiparesis, seizures, Type II DM, insomnia * Noted to be quite dry on exam * 12-lead EKG in ED shows A-fib at 117 BPM with RBBB, ST depression in V2-V5, II, aVF * CXR in ED shows minimal atelectasis adjacent to left hemidiaphragm, resolved CHF, nothing acute * Labs * WBC 16.44 * Hgb 11.7 * Plt 188 * Neutrophils 14.56 * Sodium 145 * Potassium 3.7 * Anion gap 14.7 * BUN 40 * Creatinine 1.8 * GFR 36 (appears near baseline) * Glucose 188 * Magnesium 2.2 * Bilirubin 1.1 (chronic) * AST 15, ALT 21, Alk phos 80 * Troponin 0.090 * CRP 22.3 * Pro-BNP 7829 (Down from 18K on last visit) * Albumin 3.1 * Lactic acid 1.2 * Amylase 23 * Lipase 79 * UA: Concentrated and cloudy with 1+ protein, 1+ occult blood, 1+ bilirubin, 1+ leukocyte esterase, 5-10 hyaline casts, 20-30 RBC, 40-50 WBCs, 5-10 squamous epithelial cells, moderate sediment, many bacteria * SARS-CoV-2 RNA negative * Given 500ml Fluid bolus in ED and started on 2gm Rocephin * Risk factors for UTI include immobility and chronic incontinence * Prior UTIs include Enterococcus faecalis from 02/09/2020 and Klebsiella pneumoniae from 02/24/2014 * Sepsis screen: Bacterial infection, Tachycardic and leukocytosis, Hypotension noted in ED * Meets criteria * Concern with fluid bolus as patient has significant cardiac history including recent ND and CHF exacerbation * Admitted for pain of UTI, sepsis, and dehydration PLAN: Urinary tract infection Dehydration Sepsis Urinary incontinence Chronic renal insufficiency * IV fluids as ordered judiciously due to significant cardiac history * Start zosyn given patients prior UTI history culture and sensitivities * Monitor vital signs * Monitor daily labs * Await urine culture and sensitivities * Await blood cultures Dysphagia Hypoalbuminemia * Continue BRANDAN, Level 5 Minced and moist diet per SNF records * Continue honey thick liquids * Silk Soaker consultation halfway resident * CM/SW consultation for discharge planning CAD (coronary artery disease) HLD (hyperlipidemia) HTN (hypertension) History of ND (myocardial infarction) Elevated troponin Afib, Atrial fibrillation * Review/reconcile home medications * Obtain records from last hospitalization * Trend troponin to ensure stability * Telemetry GERD (gastroesophageal reflux disease) * Start famotidine daily given GERD history and current epigastric pain Gout * No current concerns * Continue home medications History of CVA (cerebrovascular accident) History of seizure Hemiplegia Hemiparesis * Will hold off PT/OT for now as patient appears at baseline * Lauryn lift as per SNF - continue * Up to chair Depression * Review/reconcile home medications Type II diabetes mellitus * Continue home LA insulin * QID AC and Bedtime glucose checks * Low dose sliding scale for now as patient has reportedly not been eating well * Monitor and adjust insulin as needed Code Status: Full Code (Discussed with patient who reported this to multiple providers. SNF paperwork lists patient as "full code, palliative care." ED provider contacted patients family to address this and they want to honor their fathers wishes and be contacted should something happen. PCP: Dr. Isbell DVT prophylaxis: Home Eliquis Social: Patient resides at [facility] Disposition: Patient admitted to hospital floor for management of UTI, Sepsis, and dehydration Prognosis: Overall very poor prognosis given patients significant comorbidities and prior recent ND. Will need to address code status further with patient and family. - Mortality Measure Prognosis:: Poor <Gordo Barrientos - Last Filed: 09/12/20 15:03> H&P History of Present Illness - General Admit Problem/Dx: Admission Diagnosis/Problem Admission Diagnosis/Problem UTI (urinary tract infection), uncomplicated Exam - Vital Signs Vital Signs: Last Vital Signs Temp 36.4 C 09/12/20 13:04 Pulse 56 L 09/12/20 13:04 Resp 20 09/12/20 13:04 BP 97/72 09/12/20 13:04 Pulse Ox 97 09/12/20 13:04 - Patient Data Lab Results Last 24 hrs: Laboratory Results - last 24 hr 09/12/20 09/12/20 09/12/20 Range/Units 08:40 08:40 08:40 WBC 16.44 H (4.23-9.07) K/mm3 RBC 3.82 L (4.63-6.08) M/mm3 Hgb 11.7 L (13.7-17.5) gm/dl Hct 36.7 L (40.1-51.0) % MCV 96.1 H (79.0-92.2) fl MCH 30.6 (25.7-32.2) pg MCHC 31.9 L (32.2-35.5) g/dl RDW Std Deviation 47.4 H (35.1-43.9) fL Plt Count 188 (163-337) K/mm3 MPV 10.7 (9.4-12.3) fl Neut % (Auto) 88.5 H (34.0-67.9) % Lymph % (Auto) 5.8 L (21.8-53.1) % Lassen % (Auto) 5.4 (5.3-12.2) % Eos % (Auto) 0.1 L (0.8-7.0) Baso % (Auto) 0.0 L (0.1-1.2) % Neut # (Auto) 14.56 H (1.78-5.38) K/mm3 Lymph # (Auto) 0.95 L (1.32-3.57) K/mm3 Lassen # (Auto) 0.89 H (0.30-0.82) K/mm3 Eos # (Auto) 0.01 L (0.04-0.54) K/mm3 Baso # (Auto) 0.00 L (0.01-0.08) K/mm3 Manual Slide Review Abnormal smear Sodium 145 (136-145) mEq/L Potassium 3.7 (3.5-5.1) mEq/L Chloride 105 (98-107) mEq/L Carbon Dioxide 29 (21-32) mEq/L Anion Gap 14.7 (5-15) BUN 40 H (7-18) mg/dL Creatinine 1.8 H (0.7-1.3) mg/dL Est Cr Clr Drug Dosing 27.05 mL/min Estimated GFR (MDRD) 36 (>60) mL/min BUN/Creatinine Ratio 22.2 H (14-18) Glucose 188 H (83-115) mg/dL POC Glucose (83-110) mg/dL Lactic Acid (0.4-2.0) mmol/L Calcium 8.9 (8.5-10.1) mg/dL Magnesium 2.2 (1.8-2.4) mg/dl Total Bilirubin 1.1 H (0.2-1.0) mg/dL AST 15 (15-37) U/L ALT 21 (16-63) U/L Alkaline Phosphatase 80 (46-116) U/L CK-MB (CK-2) (0-3.6) ng/ml Troponin I 0.090 H* (0.00-0.056) ng/mL C-Reactive Protein 22.3 H* (<1.0) mg/dL NT-Pro-B Natriuret Pep 7829 H (0-450) pg/mL Total Protein 6.9 (6.4-8.2) g/dl Albumin 3.1 L (3.4-5.0) g/dl Globulin 3.8 gm/dL Albumin/Globulin Ratio 0.8 L (1-2) Amylase (20-160) U/L Lipase (73-393) U/L Urine Color (Yellow) Urine Appearance (Clear) Urine pH (5.0-8.0) Ur Specific Capulin (1.005-1.030) Urine Protein (Negative) Urine Glucose (UA) (Negative) Urine Ketones (Negative) Urine Occult Blood (Negative) Urine Nitrite (Negative) Urine Bilirubin (Negative) Urine Urobilinogen (0.2-1.0) Ur Leukocyte Esterase (Negative) U Hyaline Cast (Auto) (0-5) /lpf Urine RBC (0-5) /hpf Urine WBC (0-5) /hpf Ur Squamous Epith Cells (0-5) /hpf Amorphous Sediment (NOT SEEN) /hpf Urine Bacteria (FEW) /hpf Urine Mucus (FEW) /hpf SARS-CoV-2 RNA (CORDELL) (NEGATIVE) 09/12/20 09/12/20 09/12/20 Range/Units 08:40 08:45 09:35 WBC (4.23-9.07) K/mm3 RBC (4.63-6.08) M/mm3 Hgb (13.7-17.5) gm/dl Hct (40.1-51.0) % MCV (79.0-92.2) fl MCH (25.7-32.2) pg MCHC (32.2-35.5) g/dl RDW Std Deviation (35.1-43.9) fL Plt Count (163-337) K/mm3 MPV (9.4-12.3) fl Neut % (Auto) (34.0-67.9) % Lymph % (Auto) (21.8-53.1) % Lassen % (Auto) (5.3-12.2) % Eos % (Auto) (0.8-7.0) Baso % (Auto) (0.1-1.2) % Neut # (Auto) (1.78-5.38) K/mm3 Lymph # (Auto) (1.32-3.57) K/mm3 Lassen # (Auto) (0.30-0.82) K/mm3 Eos # (Auto) (0.04-0.54) K/mm3 Baso # (Auto) (0.01-0.08) K/mm3 Manual Slide Review Sodium (136-145) mEq/L Potassium (3.5-5.1) mEq/L Chloride (98-107) mEq/L Carbon Dioxide (21-32) mEq/L Anion Gap (5-15) BUN (7-18) mg/dL Creatinine (0.7-1.3) mg/dL Est Cr Clr Drug Dosing mL/min Estimated GFR (MDRD) (>60) mL/min BUN/Creatinine Ratio (14-18) Glucose (83-115) mg/dL POC Glucose (83-110) mg/dL Lactic Acid 1.2 (0.4-2.0) mmol/L Calcium (8.5-10.1) mg/dL Magnesium (1.8-2.4) mg/dl Total Bilirubin (0.2-1.0) mg/dL AST (15-37) U/L ALT (16-63) U/L Alkaline Phosphatase (46-116) U/L CK-MB (CK-2) (0-3.6) ng/ml Troponin I (0.00-0.056) ng/mL C-Reactive Protein (<1.0) mg/dL NT-Pro-B Natriuret Pep (0-450) pg/mL Total Protein (6.4-8.2) g/dl Albumin (3.4-5.0) g/dl Globulin gm/dL Albumin/Globulin Ratio (1-2) Amylase 23 (20-160) U/L Lipase 79 (73-393) U/L Urine Color (Yellow) Urine Appearance (Clear) Urine pH (5.0-8.0) Ur Specific Capulin (1.005-1.030) Urine Protein (Negative) Urine Glucose (UA) (Negative) Urine Ketones (Negative) Urine Occult Blood (Negative) Urine Nitrite (Negative) Urine Bilirubin (Negative) Urine Urobilinogen (0.2-1.0) Ur Leukocyte Esterase (Negative) U Hyaline Cast (Auto) (0-5) /lpf Urine RBC (0-5) /hpf Urine WBC (0-5) /hpf Ur Squamous Epith Cells (0-5) /hpf Amorphous Sediment (NOT SEEN) /hpf Urine Bacteria (FEW) /hpf Urine Mucus (FEW) /hpf SARS-CoV-2 RNA (CORDELL) (NEGATIVE) 09/12/20 09/12/20 09/12/20 Range/Units 10:20 10:20 12:48 WBC (4.23-9.07) K/mm3 RBC (4.63-6.08) M/mm3 Hgb (13.7-17.5) gm/dl Hct (40.1-51.0) % MCV (79.0-92.2) fl MCH (25.7-32.2) pg MCHC (32.2-35.5) g/dl RDW Std Deviation (35.1-43.9) fL Plt Count (163-337) K/mm3 MPV (9.4-12.3) fl Neut % (Auto) (34.0-67.9) % Lymph % (Auto) (21.8-53.1) % Lassen % (Auto) (5.3-12.2) % Eos % (Auto) (0.8-7.0) Baso % (Auto) (0.1-1.2) % Neut # (Auto) (1.78-5.38) K/mm3 Lymph # (Auto) (1.32-3.57) K/mm3 Lassen # (Auto) (0.30-0.82) K/mm3 Eos # (Auto) (0.04-0.54) K/mm3 Baso # (Auto) (0.01-0.08) K/mm3 Manual Slide Review Sodium (136-145) mEq/L Potassium (3.5-5.1) mEq/L Chloride (98-107) mEq/L Carbon Dioxide (21-32) mEq/L Anion Gap (5-15) BUN (7-18) mg/dL Creatinine (0.7-1.3) mg/dL Est Cr Clr Drug Dosing mL/min Estimated GFR (MDRD) (>60) mL/min BUN/Creatinine Ratio (14-18) Glucose (83-115) mg/dL POC Glucose 136 H (83-110) mg/dL Lactic Acid (0.4-2.0) mmol/L Calcium (8.5-10.1) mg/dL Magnesium (1.8-2.4) mg/dl Total Bilirubin (0.2-1.0) mg/dL AST (15-37) U/L ALT (16-63) U/L Alkaline Phosphatase (46-116) U/L CK-MB (CK-2) (0-3.6) ng/ml Troponin I (0.00-0.056) ng/mL C-Reactive Protein (<1.0) mg/dL NT-Pro-B Natriuret Pep (0-450) pg/mL Total Protein (6.4-8.2) g/dl Albumin (3.4-5.0) g/dl Globulin gm/dL Albumin/Globulin Ratio (1-2) Amylase (20-160) U/L Lipase (73-393) U/L Urine Color Yellow (Yellow) Urine Appearance Slt cloudy H (Clear) Urine pH 5.5 (5.0-8.0) Ur Specific Capulin > or = 1.030 (1.005-1.030) Urine Protein 1+ H (Negative) Urine Glucose (UA) Negative (Negative) Urine Ketones Negative (Negative) Urine Occult Blood 1+ H (Negative) Urine Nitrite Negative (Negative) Urine Bilirubin 1+ H (Negative) Urine Urobilinogen 1.0 (0.2-1.0) Ur Leukocyte Esterase 1+ H (Negative) U Hyaline Cast (Auto) 5-10 H (0-5) /lpf Urine RBC 20-30 H (0-5) /hpf Urine WBC 40-50 H (0-5) /hpf Ur Squamous Epith Cells 5-10 H (0-5) /hpf Amorphous Sediment Moderate H (NOT SEEN) /hpf Urine Bacteria Many H (FEW) /hpf Urine Mucus Not seen (FEW) /hpf SARS-CoV-2 RNA (CORDELL) Negative (NEGATIVE) 09/12/20 Range/Units 13:59 WBC (4.23-9.07) K/mm3 RBC (4.63-6.08) M/mm3 Hgb (13.7-17.5) gm/dl Hct (40.1-51.0) % MCV (79.0-92.2) fl MCH (25.7-32.2) pg MCHC (32.2-35.5) g/dl RDW Std Deviation (35.1-43.9) fL Plt Count (163-337) K/mm3 MPV (9.4-12.3) fl Neut % (Auto) (34.0-67.9) % Lymph % (Auto) (21.8-53.1) % Lassen % (Auto) (5.3-12.2) % Eos % (Auto) (0.8-7.0) Baso % (Auto) (0.1-1.2) % Neut # (Auto) (1.78-5.38) K/mm3 Lymph # (Auto) (1.32-3.57) K/mm3 Lassen # (Auto) (0.30-0.82) K/mm3 Eos # (Auto) (0.04-0.54) K/mm3 Baso # (Auto) (0.01-0.08) K/mm3 Manual Slide Review Sodium (136-145) mEq/L Potassium (3.5-5.1) mEq/L Chloride (98-107) mEq/L Carbon Dioxide (21-32) mEq/L Anion Gap (5-15) BUN (7-18) mg/dL Creatinine (0.7-1.3) mg/dL Est Cr Clr Drug Dosing mL/min Estimated GFR (MDRD) (>60) mL/min BUN/Creatinine Ratio (14-18) Glucose (83-115) mg/dL POC Glucose (83-110) mg/dL Lactic Acid (0.4-2.0) mmol/L Calcium (8.5-10.1) mg/dL Magnesium (1.8-2.4) mg/dl Total Bilirubin (0.2-1.0) mg/dL AST (15-37) U/L ALT (16-63) U/L Alkaline Phosphatase (46-116) U/L CK-MB (CK-2) 0.7 (0-3.6) ng/ml Troponin I 0.082 H* (0.00-0.056) ng/mL C-Reactive Protein (<1.0) mg/dL NT-Pro-B Natriuret Pep (0-450) pg/mL Total Protein (6.4-8.2) g/dl Albumin (3.4-5.0) g/dl Globulin gm/dL Albumin/Globulin Ratio (1-2) Amylase (20-160) U/L Lipase (73-393) U/L Urine Color (Yellow) Urine Appearance (Clear) Urine pH (5.0-8.0) Ur Specific Capulin (1.005-1.030) Urine Protein (Negative) Urine Glucose (UA) (Negative) Urine Ketones (Negative) Urine Occult Blood (Negative) Urine Nitrite (Negative) Urine Bilirubin (Negative) Urine Urobilinogen (0.2-1.0) Ur Leukocyte Esterase (Negative) U Hyaline Cast (Auto) (0-5) /lpf Urine RBC (0-5) /hpf Urine WBC (0-5) /hpf Ur Squamous Epith Cells (0-5) /hpf Amorphous Sediment (NOT SEEN) /hpf Urine Bacteria (FEW) /hpf Urine Mucus (FEW) /hpf SARS-CoV-2 RNA (CORDELL) (NEGATIVE) Result Diagrams: 09/12/20 08:40 09/12/20 08:40 Sepsis Event Note - Focused Exam Vital Signs: Vital Signs Temp Temp Pulse Pulse Resp BP BP 09/12/20 13:04 36.4 C 56 L 20 97/72 09/12/20 12:30 09/12/20 12:28 82 96/52 L 09/12/20 10:45 85 96/55 L 09/12/20 10:30 85 90/51 L 09/12/20 08:35 36.2 C 117 H 13 110/64 Pulse Ox Pulse Ox 09/12/20 13:04 97 09/12/20 12:30 97 97 09/12/20 12:28 100 09/12/20 10:45 09/12/20 10:30 92 L 09/12/20 08:35 100 Orders Last 24hrs: Active Orders 24 hr Category Date Time Status Patient Status [ADT] Routine ADT 09/12/20 11:43 Active Accu Check [Blood Glucose Check, Bedside] [RC] Care 09/12/20 12:03 Active QIDACANDBED Aspiration Precautions [RC] ASDIRECTED Care 09/12/20 13:50 Active Cardiac Monitoring [RC] CONTINUOUS Care 09/12/20 11:45 Active Height and Weight [RC] 06 Care 09/12/20 11:44 Active Intake and Output [RC] 04,16 Care 09/12/20 11:45 Active Oxygen Therapy [RC] PRN Care 09/12/20 11:45 Active Pulse Oximetry [RC] PRN Care 09/12/20 11:45 Active Up to Chair [RC] ASDIRECTED Care 09/12/20 12:27 Active VTE/DVT Education [RC] QSHIFT Care 09/12/20 11:45 Active Vital Signs [RC] Q4H Care 09/12/20 11:45 Active Consult to Case Management/Motor And Generator Brush Maker [CONS] Cons 09/12/20 11:44 Active Routine Consult to Silk Soaker [CONS] Routine Cons 09/12/20 12:27 Active Mechanical Soft Diet [DIET] Diet 09/12/20 Lunch Active Thickened Liquids [DIET] Diet 09/12/20 Dinner Active BASIC METABOLIC PANEL,BMP [CHEM] AM Lab 09/13/20 05:11 Ordered BASIC METABOLIC PANEL,BMP [CHEM] AM Lab 09/14/20 05:11 Ordered BASIC METABOLIC PANEL,BMP [CHEM] AM Lab 09/15/20 05:11 Ordered BASIC METABOLIC PANEL,BMP [CHEM] AM Lab 09/16/20 05:11 Ordered CBC WITH AUTO DIFF [HEME] AM Lab 09/13/20 05:11 Ordered CBC WITH AUTO DIFF [HEME] AM Lab 09/14/20 05:11 Ordered CBC WITH AUTO DIFF [HEME] AM Lab 09/15/20 05:11 Ordered CBC WITH AUTO DIFF [HEME] AM Lab 09/16/20 05:11 Ordered CULTURE BLOOD [BC] Stat Lab 09/12/20 09:35 Received CULTURE BLOOD [BC] Stat Lab 09/12/20 09:45 Received CULTURE URINE [RM] Stat Lab 09/12/20 10:20 Received MAGNESIUM [CHEM] AM Lab 09/13/20 05:11 Ordered MAGNESIUM [CHEM] AM Lab 09/14/20 05:11 Ordered MAGNESIUM [CHEM] AM Lab 09/15/20 05:11 Ordered MAGNESIUM [CHEM] AM Lab 09/16/20 05:11 Ordered METH-RESIST S.AUR,MRSA BY PCR [MOLEC] Routine Lab 09/12/20 13:44 Ordered Acetaminophen [TylenoL] Med 09/12/20 11:44 Active 650 mg PO Q4H PRN Apixaban [Eliquis] Med 09/12/20 21:00 Active 2.5 mg PO BID Aspirin Med 09/13/20 09:00 Active 81 mg PO DAILY Docusate Sodium/Sennosides [Senna Plus] Med 09/12/20 11:58 Active 1 tab PO DAILY PRN Donepezil [Aricept] Med 09/13/20 09:00 Active 10 mg PO DAILY Enalapril [Vasotec] Med 09/13/20 09:00 Active 5 mg PO DAILY Famotidine [Pepcid] Med 09/13/20 09:00 Active 20 mg PO DAILY Furosemide [Lasix] Med 09/13/20 09:00 Active 40 mg PO DAILY Insulin Glarg,Human.Rec.Analog [LantUS] Med 09/13/20 09:00 Active 10 unit SUBCUT DAILY Insulin Lispro [HumaLOG] Med 09/12/20 17:00 Active See Protocol SUBCUT QIDACANDBED Isosorbide Mononitrate [Imdur] Med 09/13/20 09:00 Active 30 mg PO DAILY Lactated Ringers [Ringers, Lactated] 1,000 ml Med 09/12/20 12:00 Active IV ASDIRECTED Metoprolol Tartrate [Lopressor] Med 09/12/20 21:00 Active 37.5 mg PO BID Piperacillin/Tazobactam [Piperacil-Tazobact] 4.5 gm Med 09/12/20 20:30 Active Sodium Chloride 0.9% [Normal Saline] 100 ml IV Q8H Sertraline [Zoloft] Med 09/13/20 09:00 Active 50 mg PO DAILY Sodium Chloride 0.9% [Saline Flush] Med 09/12/20 08:51 Active 10 ml FLUSH ASDIRECTED PRN allopurinoL [Zyloprim] Med 09/13/20 09:00 Active 200 mg PO DAILY bisacodyL [Dulcolax] Med 09/12/20 11:58 Active 10 mg RECTAL DAILY PRN Blood Culture x2 Reflex Set [OM.PC] Stat Oth 09/12/20 09:15 Ordered Saline Lock Insert [OM.PC] Stat Ot 09/12/20 08:51 Ordered Resuscitation Status Routine Resus Stat 09/12/20 11:44 Ordered Medication Orders Acetaminophen (Tylenol) 650 mg PO Q4H PRN PRN Reason: Pain (Mild 1-3)/fever Allopurinol (Zyloprim) 200 mg PO DAILY [facility] Apixaban (Eliquis) 2.5 mg PO BID [facility] Aspirin (Aspirin) 81 mg PO DAILY [facility] Bisacodyl (Dulcolax) 10 mg RECTAL DAILY PRN PRN Reason: Constipation Donepezil HCl (Aricept) 10 mg PO DAILY [facility] Enalapril Maleate (Vasotec) 5 mg PO DAILY [facility] Famotidine (Pepcid) 20 mg PO DAILY [facility] Furosemide (Lasix) 40 mg PO DAILY [facility] Piperacillin Sod/Tazobactam (Sod 4.5 gm/ Sodium Chloride) 100 mls @ 25 mls/hr IV Q8H [facility] Lactated Ringer's (Ringers, Lactated) 1,000 mls @ 75 mls/hr IV ASDIRECTED [facility] Stop: 09/13/20 01:19 Last Admin: 09/12/20 12:55 Dose: 75 mls/hr Documented by: YEFRI Insulin Glargine (Lantus) 10 unit SUBCUT DAILY [facility] Insulin Human Lispro (Humalog) 0 unit SUBCUT QIDACANDBED [facility]; Protocol Isosorbide Mononitrate (Imdur) 30 mg PO DAILY [facility] Metoprolol Tartrate (Lopressor) 37.5 mg PO BID [facility] Senna/Docusate Sodium (Senna Plus) 1 tab PO DAILY PRN PRN Reason: Constipation Sertraline HCl (Zoloft) 50 mg PO DAILY [facility] Sodium Chloride (Saline Flush) 10 ml FLUSH ASDIRECTED PRN PRN Reason: Keep Vein Open Last Admin: 09/12/20 08:54 Dose: 10 ml Documented by: SHIVAM Assessment/Plan Comment:: I have seen and examined the patient independently of Young Swanson PA-C. I have reviewed the orders and agree with the plan of care as outlined by him. I have discussed the case with him. Please see orders.
[2020-09-12] MEDS ORDERED: Acetaminophen 325 MG Tab PO PRN (11:44)
[2020-09-12] MEDS ORDERED: Bisacodyl 10 MG Supp RECTAL PRN (11:58)
[2020-09-12] MEDS ORDERED: Lactated Ringers 1,000 ML IV SCH (12:00)
[2020-09-12] MEDS ORDERED: Piperacillin/Tazobactam 4.5 GM in Sodium Chloride 0.9% 100 ML IV ONE (12:30)
[2020-09-12] MEDS: Piperacillin/Tazobactam 4.5 GM in Sodium Chloride 0.9% 100 ML IV SCH (20:34)
[2020-09-12] MEDS: Metoprolol Tartrate 25 MG Tab PO SCH (20:38)
[2020-09-12] MEDS ORDERED: Apixaban 2.5 MG Tab PO SCH (21:00)
[2020-09-13] MEDS: Piperacillin/Tazobactam 4.5 GM in Sodium Chloride 0.9% 100 ML IV SCH ×3 (03:44→20:57)
--- NOTE | 2020-09-13 07:28 | PCM.PN ---
<Young Swanson - Last Filed: 09/13/20 12:27> - General Info Date of Service: 09/13/20 Admission Dx/Problem (Free Text): Admission Diagnosis/Problem Admission Diagnosis/Problem UTI (urinary tract infection), uncomplicated Subjective Update: In to see Derek. He remains quite confused but pleasant. Labs today show improvement in his WBC. Troponin was re-check and was coming down. Suspect chronic elevation vs slow improvement from prior LA. Micro shows negative blood cultures and gram negative rods on urine c/s. Will continue to monitor. Continue current treatment plan. No patient or nursing concerns. Functional Status: Reports: Pain Controlled, Tolerating Diet, Urinating. Denies: Ambulating (baseline), New Symptoms - Review of Systems General: Reports: No Symptoms. Denies: Fever, Weakness, Fatigue, Malaise, Chills HEENT: Reports: No Symptoms. Denies: Headaches, Sore Throat Pulmonary: Reports: No Symptoms. Denies: Shortness of Breath, Cough, Sputum, Wheezing Cardiovascular: Reports: No Symptoms. Denies: Chest Pain, Palpitations, Dyspnea on Exertion, Edema Gastrointestinal: Reports: No Symptoms. Denies: Abdominal Pain, Constipation, Diarrhea, Nausea, Vomiting Genitourinary: Reports: Incontinence (chronic ). Denies: Dysuria, Pain Musculoskeletal: Reports: No Symptoms Skin: Reports: No Symptoms. Denies: Cyanosis Neurological: Reports: Confusion (baseline ), Pre-Existing Deficit (Pre-existing left nondominant hemiplegia and hemiparesis), Difficulty Walking (bseline ), Gait Disturbance (baseline ) Psychiatric: Reports: No Symptoms - Patient Data Vitals - Most Recent: Last Vital Signs Temp 98.4 F 09/13/20 03:42 Pulse 91 09/13/20 03:42 Resp 18 09/13/20 03:42 BP 108/68 09/13/20 03:42 Pulse Ox 95 09/13/20 03:42 Weight - Most Recent: 80.422 kg I&O - Last 24 Hours: Intake & Output 09/12/20 09/13/20 09/13/20 22:59 06:59 14:59 Intake Total 540 895 Output Total 150 125 Balance 390 770 Lab Results Last 24 Hours: Laboratory Results - last 24 hr 09/12/20 09/12/20 09/12/20 Range/Units 08:40 08:40 08:40 WBC 16.44 H (4.23-9.07) K/mm3 RBC 3.82 L (4.63-6.08) M/mm3 Hgb 11.7 L (13.7-17.5) gm/dl Hct 36.7 L (40.1-51.0) % MCV 96.1 H (79.0-92.2) fl MCH 30.6 (25.7-32.2) pg MCHC 31.9 L (32.2-35.5) g/dl RDW Std Deviation 47.4 H (35.1-43.9) fL Plt Count 188 (163-337) K/mm3 MPV 10.7 (9.4-12.3) fl Neut % (Auto) 88.5 H (34.0-67.9) % Lymph % (Auto) 5.8 L (21.8-53.1) % [place] % (Auto) 5.4 (5.3-12.2) % Eos % (Auto) 0.1 L (0.8-7.0) Baso % (Auto) 0.0 L (0.1-1.2) % Neut # (Auto) 14.56 H (1.78-5.38) K/mm3 Lymph # (Auto) 0.95 L (1.32-3.57) K/mm3 [place] # (Auto) 0.89 H (0.30-0.82) K/mm3 Eos # (Auto) 0.01 L (0.04-0.54) K/mm3 Baso # (Auto) 0.00 L (0.01-0.08) K/mm3 Manual Slide Review Abnormal smear Sodium 145 (136-145) mEq/L Potassium 3.7 (3.5-5.1) mEq/L Chloride 105 (98-107) mEq/L Carbon Dioxide 29 (21-32) mEq/L Anion Gap 14.7 (5-15) BUN 40 H (7-18) mg/dL Creatinine 1.8 H (0.7-1.3) mg/dL Est Cr Clr Drug Dosing 27.05 mL/min Estimated GFR (MDRD) 36 (>60) mL/min BUN/Creatinine Ratio 22.2 H (14-18) Glucose 188 H (83-115) mg/dL POC Glucose (83-110) mg/dL Lactic Acid (0.4-2.0) mmol/L Calcium 8.9 (8.5-10.1) mg/dL Magnesium 2.2 (1.8-2.4) mg/dl Total Bilirubin 1.1 H (0.2-1.0) mg/dL AST 15 (15-37) U/L ALT 21 (16-63) U/L Alkaline Phosphatase 80 (46-116) U/L CK-MB (CK-2) (0-3.6) ng/ml Troponin I 0.090 H* (0.00-0.056) ng/mL C-Reactive Protein 22.3 H* (<1.0) mg/dL NT-Pro-B Natriuret Pep 7829 H (0-450) pg/mL Total Protein 6.9 (6.4-8.2) g/dl Albumin 3.1 L (3.4-5.0) g/dl Globulin 3.8 gm/dL Albumin/Globulin Ratio 0.8 L (1-2) Amylase (20-160) U/L Lipase (73-393) U/L Urine Color (Yellow) Urine Appearance (Clear) Urine pH (5.0-8.0) Ur Specific [place] (1.005-1.030) Urine Protein (Negative) Urine Glucose (UA) (Negative) Urine Ketones (Negative) Urine Occult Blood (Negative) Urine Nitrite (Negative) Urine Bilirubin (Negative) Urine Urobilinogen (0.2-1.0) Ur Leukocyte Esterase (Negative) U Hyaline Cast (Auto) (0-5) /lpf Urine RBC (0-5) /hpf Urine WBC (0-5) /hpf Ur Squamous Epith Cells (0-5) /hpf Amorphous Sediment (NOT SEEN) /hpf Urine Bacteria (FEW) /hpf Urine Mucus (FEW) /hpf SARS-CoV-2 RNA (CORDELL) (NEGATIVE) MRSA (PCR) 09/12/20 09/12/20 09/12/20 Range/Units 08:40 08:45 09:35 WBC (4.23-9.07) K/mm3 RBC (4.63-6.08) M/mm3 Hgb (13.7-17.5) gm/dl Hct (40.1-51.0) % MCV (79.0-92.2) fl MCH (25.7-32.2) pg MCHC (32.2-35.5) g/dl RDW Std Deviation (35.1-43.9) fL Plt Count (163-337) K/mm3 MPV (9.4-12.3) fl Neut % (Auto) (34.0-67.9) % Lymph % (Auto) (21.8-53.1) % [place] % (Auto) (5.3-12.2) % Eos % (Auto) (0.8-7.0) Baso % (Auto) (0.1-1.2) % Neut # (Auto) (1.78-5.38) K/mm3 Lymph # (Auto) (1.32-3.57) K/mm3 [place] # (Auto) (0.30-0.82) K/mm3 Eos # (Auto) (0.04-0.54) K/mm3 Baso # (Auto) (0.01-0.08) K/mm3 Manual Slide Review Sodium (136-145) mEq/L Potassium (3.5-5.1) mEq/L Chloride (98-107) mEq/L Carbon Dioxide (21-32) mEq/L Anion Gap (5-15) BUN (7-18) mg/dL Creatinine (0.7-1.3) mg/dL Est Cr Clr Drug Dosing mL/min Estimated GFR (MDRD) (>60) mL/min BUN/Creatinine Ratio (14-18) Glucose (83-115) mg/dL POC Glucose (83-110) mg/dL Lactic Acid 1.2 (0.4-2.0) mmol/L Calcium (8.5-10.1) mg/dL Magnesium (1.8-2.4) mg/dl Total Bilirubin (0.2-1.0) mg/dL AST (15-37) U/L ALT (16-63) U/L Alkaline Phosphatase (46-116) U/L CK-MB (CK-2) (0-3.6) ng/ml Troponin I (0.00-0.056) ng/mL C-Reactive Protein (<1.0) mg/dL NT-Pro-B Natriuret Pep (0-450) pg/mL Total Protein (6.4-8.2) g/dl Albumin (3.4-5.0) g/dl Globulin gm/dL Albumin/Globulin Ratio (1-2) Amylase 23 (20-160) U/L Lipase 79 (73-393) U/L Urine Color (Yellow) Urine Appearance (Clear) Urine pH (5.0-8.0) Ur Specific [place] (1.005-1.030) Urine Protein (Negative) Urine Glucose (UA) (Negative) Urine Ketones (Negative) Urine Occult Blood (Negative) Urine Nitrite (Negative) Urine Bilirubin (Negative) Urine Urobilinogen (0.2-1.0) Ur Leukocyte Esterase (Negative) U Hyaline Cast (Auto) (0-5) /lpf Urine RBC (0-5) /hpf Urine WBC (0-5) /hpf Ur Squamous Epith Cells (0-5) /hpf Amorphous Sediment (NOT SEEN) /hpf Urine Bacteria (FEW) /hpf Urine Mucus (FEW) /hpf SARS-CoV-2 RNA (CORDELL) (NEGATIVE) MRSA (PCR) 09/12/20 09/12/20 09/12/20 Range/Units 10:20 10:20 12:48 WBC (4.23-9.07) K/mm3 RBC (4.63-6.08) M/mm3 Hgb (13.7-17.5) gm/dl Hct (40.1-51.0) % MCV (79.0-92.2) fl MCH (25.7-32.2) pg MCHC (32.2-35.5) g/dl RDW Std Deviation (35.1-43.9) fL Plt Count (163-337) K/mm3 MPV (9.4-12.3) fl Neut % (Auto) (34.0-67.9) % Lymph % (Auto) (21.8-53.1) % [place] % (Auto) (5.3-12.2) % Eos % (Auto) (0.8-7.0) Baso % (Auto) (0.1-1.2) % Neut # (Auto) (1.78-5.38) K/mm3 Lymph # (Auto) (1.32-3.57) K/mm3 [place] # (Auto) (0.30-0.82) K/mm3 Eos # (Auto) (0.04-0.54) K/mm3 Baso # (Auto) (0.01-0.08) K/mm3 Manual Slide Review Sodium (136-145) mEq/L Potassium (3.5-5.1) mEq/L Chloride (98-107) mEq/L Carbon Dioxide (21-32) mEq/L Anion Gap (5-15) BUN (7-18) mg/dL Creatinine (0.7-1.3) mg/dL Est Cr Clr Drug Dosing mL/min Estimated GFR (MDRD) (>60) mL/min BUN/Creatinine Ratio (14-18) Glucose (83-115) mg/dL POC Glucose 136 H (83-110) mg/dL Lactic Acid (0.4-2.0) mmol/L Calcium (8.5-10.1) mg/dL Magnesium (1.8-2.4) mg/dl Total Bilirubin (0.2-1.0) mg/dL AST (15-37) U/L ALT (16-63) U/L Alkaline Phosphatase (46-116) U/L CK-MB (CK-2) (0-3.6) ng/ml Troponin I (0.00-0.056) ng/mL C-Reactive Protein (<1.0) mg/dL NT-Pro-B Natriuret Pep (0-450) pg/mL Total Protein (6.4-8.2) g/dl Albumin (3.4-5.0) g/dl Globulin gm/dL Albumin/Globulin Ratio (1-2) Amylase (20-160) U/L Lipase (73-393) U/L Urine Color Yellow (Yellow) Urine Appearance Slt cloudy H (Clear) Urine pH 5.5 (5.0-8.0) Ur Specific [place] > or = 1.030 (1.005-1.030) Urine Protein 1+ H (Negative) Urine Glucose (UA) Negative (Negative) Urine Ketones Negative (Negative) Urine Occult Blood 1+ H (Negative) Urine Nitrite Negative (Negative) Urine Bilirubin 1+ H (Negative) Urine Urobilinogen 1.0 (0.2-1.0) Ur Leukocyte Esterase 1+ H (Negative) U Hyaline Cast (Auto) 5-10 H (0-5) /lpf Urine RBC 20-30 H (0-5) /hpf Urine WBC 40-50 H (0-5) /hpf Ur Squamous Epith Cells 5-10 H (0-5) /hpf Amorphous Sediment Moderate H (NOT SEEN) /hpf Urine Bacteria Many H (FEW) /hpf Urine Mucus Not seen (FEW) /hpf SARS-CoV-2 RNA (CORDELL) Negative (NEGATIVE) MRSA (PCR) 09/12/20 09/12/20 09/12/20 Range/Units 13:59 17:07 20:48 WBC (4.23-9.07) K/mm3 RBC (4.63-6.08) M/mm3 Hgb (13.7-17.5) gm/dl Hct (40.1-51.0) % MCV (79.0-92.2) fl MCH (25.7-32.2) pg MCHC (32.2-35.5) g/dl RDW Std Deviation (35.1-43.9) fL Plt Count (163-337) K/mm3 MPV (9.4-12.3) fl Neut % (Auto) (34.0-67.9) % Lymph % (Auto) (21.8-53.1) % [place] % (Auto) (5.3-12.2) % Eos % (Auto) (0.8-7.0) Baso % (Auto) (0.1-1.2) % Neut # (Auto) (1.78-5.38) K/mm3 Lymph # (Auto) (1.32-3.57) K/mm3 [place] # (Auto) (0.30-0.82) K/mm3 Eos # (Auto) (0.04-0.54) K/mm3 Baso # (Auto) (0.01-0.08) K/mm3 Manual Slide Review Sodium (136-145) mEq/L Potassium (3.5-5.1) mEq/L Chloride (98-107) mEq/L Carbon Dioxide (21-32) mEq/L Anion Gap (5-15) BUN (7-18) mg/dL Creatinine (0.7-1.3) mg/dL Est Cr Clr Drug Dosing mL/min Estimated GFR (MDRD) (>60) mL/min BUN/Creatinine Ratio (14-18) Glucose (83-115) mg/dL POC Glucose 125 H 171 H (83-110) mg/dL Lactic Acid (0.4-2.0) mmol/L Calcium (8.5-10.1) mg/dL Magnesium (1.8-2.4) mg/dl Total Bilirubin (0.2-1.0) mg/dL AST (15-37) U/L ALT (16-63) U/L Alkaline Phosphatase (46-116) U/L CK-MB (CK-2) 0.7 (0-3.6) ng/ml Troponin I 0.082 H* (0.00-0.056) ng/mL C-Reactive Protein (<1.0) mg/dL NT-Pro-B Natriuret Pep (0-450) pg/mL Total Protein (6.4-8.2) g/dl Albumin (3.4-5.0) g/dl Globulin gm/dL Albumin/Globulin Ratio (1-2) Amylase (20-160) U/L Lipase (73-393) U/L Urine Color (Yellow) Urine Appearance (Clear) Urine pH (5.0-8.0) Ur Specific [place] (1.005-1.030) Urine Protein (Negative) Urine Glucose (UA) (Negative) Urine Ketones (Negative) Urine Occult Blood (Negative) Urine Nitrite (Negative) Urine Bilirubin (Negative) Urine Urobilinogen (0.2-1.0) Ur Leukocyte Esterase (Negative) U Hyaline Cast (Auto) (0-5) /lpf Urine RBC (0-5) /hpf Urine WBC (0-5) /hpf Ur Squamous Epith Cells (0-5) /hpf Amorphous Sediment (NOT SEEN) /hpf Urine Bacteria (FEW) /hpf Urine Mucus (FEW) /hpf SARS-CoV-2 RNA (CORDELL) (NEGATIVE) MRSA (PCR) 09/12/20 09/13/20 09/13/20 Range/Units 21:15 04:54 04:54 WBC 9.87 H (4.23-9.07) K/mm3 RBC 3.66 L (4.63-6.08) M/mm3 Hgb 10.9 L (13.7-17.5) gm/dl Hct 35.1 L (40.1-51.0) % MCV 95.9 H (79.0-92.2) fl MCH 29.8 (25.7-32.2) pg MCHC 31.1 L (32.2-35.5) g/dl RDW Std Deviation 48.2 H (35.1-43.9) fL Plt Count 168 (163-337) K/mm3 MPV 11.0 (9.4-12.3) fl Neut % (Auto) 86.1 H (34.0-67.9) % Lymph % (Auto) 8.0 L (21.8-53.1) % [place] % (Auto) 5.4 (5.3-12.2) % Eos % (Auto) 0.1 L (0.8-7.0) Baso % (Auto) 0.1 (0.1-1.2) % Neut # (Auto) 8.50 H (1.78-5.38) K/mm3 Lymph # (Auto) 0.79 L (1.32-3.57) K/mm3 [place] # (Auto) 0.53 (0.30-0.82) K/mm3 Eos # (Auto) 0.01 L (0.04-0.54) K/mm3 Baso # (Auto) 0.01 (0.01-0.08) K/mm3 Manual Slide Review Abnormal smear Sodium 149 H (136-145) mEq/L Potassium 3.5 (3.5-5.1) mEq/L Chloride 109 H (98-107) mEq/L Carbon Dioxide 27 (21-32) mEq/L Anion Gap 16.5 H (5-15) BUN 32 H (7-18) mg/dL Creatinine 1.4 H (0.7-1.3) mg/dL Est Cr Clr Drug Dosing 34.72 mL/min Estimated GFR (MDRD) 48 (>60) mL/min BUN/Creatinine Ratio 22.9 H (14-18) Glucose 121 H (83-115) mg/dL POC Glucose (83-110) mg/dL Lactic Acid (0.4-2.0) mmol/L Calcium 8.6 (8.5-10.1) mg/dL Magnesium 2.1 (1.8-2.4) mg/dl Total Bilirubin (0.2-1.0) mg/dL AST (15-37) U/L ALT (16-63) U/L Alkaline Phosphatase (46-116) U/L CK-MB (CK-2) (0-3.6) ng/ml Troponin I (0.00-0.056) ng/mL C-Reactive Protein (<1.0) mg/dL NT-Pro-B Natriuret Pep (0-450) pg/mL Total Protein (6.4-8.2) g/dl Albumin (3.4-5.0) g/dl Globulin gm/dL Albumin/Globulin Ratio (1-2) Amylase (20-160) U/L Lipase (73-393) U/L Urine Color (Yellow) Urine Appearance (Clear) Urine pH (5.0-8.0) Ur Specific [place] (1.005-1.030) Urine Protein (Negative) Urine Glucose (UA) (Negative) Urine Ketones (Negative) Urine Occult Blood (Negative) Urine Nitrite (Negative) Urine Bilirubin (Negative) Urine Urobilinogen (0.2-1.0) Ur Leukocyte Esterase (Negative) U Hyaline Cast (Auto) (0-5) /lpf Urine RBC (0-5) /hpf Urine WBC (0-5) /hpf Ur Squamous Epith Cells (0-5) /hpf Amorphous Sediment (NOT SEEN) /hpf Urine Bacteria (FEW) /hpf Urine Mucus (FEW) /hpf SARS-CoV-2 RNA (CORDELL) (NEGATIVE) MRSA (PCR) Negative 09/13/20 Range/Units 06:57 WBC (4.23-9.07) K/mm3 RBC (4.63-6.08) M/mm3 Hgb (13.7-17.5) gm/dl Hct (40.1-51.0) % MCV (79.0-92.2) fl MCH (25.7-32.2) pg MCHC (32.2-35.5) g/dl RDW Std Deviation (35.1-43.9) fL Plt Count (163-337) K/mm3 MPV (9.4-12.3) fl Neut % (Auto) (34.0-67.9) % Lymph % (Auto) (21.8-53.1) % [place] % (Auto) (5.3-12.2) % Eos % (Auto) (0.8-7.0) Baso % (Auto) (0.1-1.2) % Neut # (Auto) (1.78-5.38) K/mm3 Lymph # (Auto) (1.32-3.57) K/mm3 [place] # (Auto) (0.30-0.82) K/mm3 Eos # (Auto) (0.04-0.54) K/mm3 Baso # (Auto) (0.01-0.08) K/mm3 Manual Slide Review Sodium (136-145) mEq/L Potassium (3.5-5.1) mEq/L Chloride (98-107) mEq/L Carbon Dioxide (21-32) mEq/L Anion Gap (5-15) BUN (7-18) mg/dL Creatinine (0.7-1.3) mg/dL Est Cr Clr Drug Dosing mL/min Estimated GFR (MDRD) (>60) mL/min BUN/Creatinine Ratio (14-18) Glucose (83-115) mg/dL POC Glucose 127 H (83-110) mg/dL Lactic Acid (0.4-2.0) mmol/L Calcium (8.5-10.1) mg/dL Magnesium (1.8-2.4) mg/dl Total Bilirubin (0.2-1.0) mg/dL AST (15-37) U/L ALT (16-63) U/L Alkaline Phosphatase (46-116) U/L CK-MB (CK-2) (0-3.6) ng/ml Troponin I (0.00-0.056) ng/mL C-Reactive Protein (<1.0) mg/dL NT-Pro-B Natriuret Pep (0-450) pg/mL Total Protein (6.4-8.2) g/dl Albumin (3.4-5.0) g/dl Globulin gm/dL Albumin/Globulin Ratio (1-2) Amylase (20-160) U/L Lipase (73-393) U/L Urine Color (Yellow) Urine Appearance (Clear) Urine pH (5.0-8.0) Ur Specific [place] (1.005-1.030) Urine Protein (Negative) Urine Glucose (UA) (Negative) Urine Ketones (Negative) Urine Occult Blood (Negative) Urine Nitrite (Negative) Urine Bilirubin (Negative) Urine Urobilinogen (0.2-1.0) Ur Leukocyte Esterase (Negative) U Hyaline Cast (Auto) (0-5) /lpf Urine RBC (0-5) /hpf Urine WBC (0-5) /hpf Ur Squamous Epith Cells (0-5) /hpf Amorphous Sediment (NOT SEEN) /hpf Urine Bacteria (FEW) /hpf Urine Mucus (FEW) /hpf SARS-CoV-2 RNA (CORDELL) (NEGATIVE) MRSA (PCR) Med Orders - Current: Current Medications Acetaminophen (Tylenol) 650 mg PO Q4H PRN PRN Reason: Pain (Mild 1-3)/fever Allopurinol (Zyloprim) 200 mg PO DAILY [facility] Apixaban (Eliquis) 2.5 mg PO BID [facility] Last Admin: 09/12/20 20:38 Dose: 2.5 mg Documented by: Aspirin (Aspirin) 81 mg PO DAILY [facility] Bisacodyl (Dulcolax) 10 mg RECTAL DAILY PRN PRN Reason: Constipation Donepezil HCl (Aricept) 10 mg PO DAILY [facility] Enalapril Maleate (Vasotec) 5 mg PO DAILY [facility] Famotidine (Pepcid) 20 mg PO DAILY [facility] Furosemide (Lasix) 40 mg PO DAILY [facility] Piperacillin Sod/Tazobactam (Sod 4.5 gm/ Sodium Chloride) 100 mls @ 25 mls/hr IV Q8H [facility] Last Admin: 09/13/20 03:44 Dose: 25 mls/hr Documented by: Insulin Glargine (Lantus) 10 unit SUBCUT DAILY [facility] Insulin Human Lispro (Humalog) 0 unit SUBCUT QIDACANDBED [facility]; Protocol Last Admin: 09/12/20 20:40 Dose: 1 unit Documented by: Isosorbide Mononitrate (Imdur) 30 mg PO DAILY [facility] Metoprolol Tartrate (Lopressor) 37.5 mg PO BID [facility] Last Admin: 09/12/20 20:38 Dose: 37.5 mg Documented by: Senna/Docusate Sodium (Senna Plus) 1 tab PO DAILY PRN PRN Reason: Constipation Sertraline HCl (Zoloft) 50 mg PO DAILY [facility] Sodium Chloride (Saline Flush) 10 ml FLUSH ASDIRECTED PRN PRN Reason: Keep Vein Open Last Admin: 09/12/20 08:54 Dose: 10 ml Documented by: Discontinued Medications Sodium Chloride (Normal Saline) 500 mls @ 500 mls/hr IV .BOLUS ONE Stop: 09/12/20 09:56 Last Admin: 09/12/20 09:21 Dose: 500 mls/hr Documented by: Ceftriaxone Sodium 2 gm/ (Sodium Chloride) 100 mls @ 200 mls/hr IV ONETIME ONE Stop: 09/12/20 11:08 Last Admin: 09/12/20 11:17 Dose: 200 mls/hr Documented by: Piperacillin Sod/Tazobactam (Sod 4.5 gm/ Sodium Chloride) 100 mls @ 200 mls/hr IV ONETIME ONE Stop: 09/12/20 12:59 Last Admin: 09/12/20 12:55 Dose: 200 mls/hr Documented by: Lactated Ringer's (Ringers, Lactated) 1,000 mls @ 75 mls/hr IV ASDIRECTED ALENA Stop: 09/13/20 01:19 Last Admin: 09/12/20 12:55 Dose: 75 mls/hr Documented by: - Exam Quality Assessment: DVT Prophylaxis. No: Supplemental Oxygen, Urine Catheter General: Alert, Cooperative, No Acute Distress. No: Oriented HEENT: Pupils Equal, Pupils Reactive, Mucous Membr. Moist/[place] Neck: Supple, Trachea Midline Lungs: Clear to Auscultation, Normal Respiratory Effort Cardiovascular: Irregular Rhythm (irregular rate and rhythm ) GI/Abdominal Exam: Normal Bowel Sounds, Soft, Tender (Minimal epigastric pain on deep palpation which appears chronic ) (Male) Exam: Deferred Back Exam: Normal Inspection, Decreased Range of Motion Extremities: Non-Tender, No Pedal Edema, Normal Capillary Refill, Limited Range of Motion Peripheral Pulses: 2+: Radial (L), Radial (R), Dorsalis Pedis (L), Dorsalis Pedis (R) Skin: Warm, Dry, Intact Neurological: No New Focal Deficit Psy/Mental Status: Alert, Normal Affect, Normal Mood Sepsis Event Note - Evaluation Sepsis Screening Result: Sepsis Risk - Focused Exam Vital Signs: Vital Signs Temp Pulse Resp BP Pulse Ox 09/13/20 03:42 98.4 F 91 18 108/68 95 09/13/20 00:13 97.9 F 89 18 130/83 96 09/12/20 20:44 98.4 F 114 H 18 120/79 97 09/12/20 20:38 114 H 120/79 - Problem List & Annotations (1) Dysphagia SNOMED Code(s): 38934502, 998476870 Code(s): R13.10 - DYSPHAGIA, UNSPECIFIED Status: Chronic Priority: Medium Current Visit: Yes Qualifiers: Dysphagia type: unspecified Qualified Code(s): R13.10 - Dysphagia, unspecified (2) retirement resident SNOMED Code(s): 665981154 Code(s): Z59.3 - PROBLEMS RELATED TO LIVING IN RESIDENTIAL INSTITUTION Status: Chronic Priority: Low Current Visit: No (3) CAD (coronary artery disease) SNOMED Code(s): 44053670 Code(s): I25.10 - ATHSCL HEART DISEASE OF [place] CORONARY ARTERY W/O ANG PCTRS Status: Chronic Priority: Low Current Visit: No Qualifiers: Coronary Disease-Associated Artery/Lesion type: unspecified vessel or lesion type [place] vs. transplanted heart: [place] heart Associated angina: angina presence unspecified Qualified Code(s): I25.10 - Atherosclerotic heart disease of [place] coronary artery without angina pectoris (4) HLD (hyperlipidemia) SNOMED Code(s): 91993484 Code(s): E78.5 - HYPERLIPIDEMIA, UNSPECIFIED Status: Chronic Priority: Low Current Visit: No Qualifiers: Hyperlipidemia type: unspecified Qualified Code(s): E78.5 - Hyperlipidemia, unspecified (5) HTN (hypertension) SNOMED Code(s): 78124438 Code(s): I10 - ESSENTIAL (PRIMARY) HYPERTENSION Status: Chronic Priority: Medium Current Visit: No Qualifiers: Hypertension type: unspecified Qualified Code(s): I10 - Essential (primary) hypertension (6) History of LA (myocardial infarction) SNOMED Code(s): 387500054 Code(s): I25.2 - OLD MYOCARDIAL INFARCTION Status: Chronic Priority: Low Current Visit: No (7) GERD (gastroesophageal reflux disease) SNOMED Code(s): 585227824 Code(s): K21.9 - GASTRO-ESOPHAGEAL REFLUX DISEASE WITHOUT ESOPHAGITIS Status: Chronic Priority: Medium Current Visit: No Qualifiers: Esophagitis presence: esophagitis presence not specified Qualified Code(s): K21.9 - Gastro-esophageal reflux disease without esophagitis (8) Urinary incontinence SNOMED Code(s): 997065807 Code(s): R32 - UNSPECIFIED URINARY INCONTINENCE Status: Chronic Priority: Medium Current Visit: No Qualifiers: Urinary Incontinence type: unspecified incontinence Qualified Code(s): R32 - Unspecified urinary incontinence (9) Gout SNOMED Code(s): 05532832 Code(s): M10.9 - GOUT, UNSPECIFIED Status: Chronic Priority: Low Current Visit: No Qualifiers: Gout site: unspecified site Gout etiology: unspecified cause Chronicity: chronic Presence of tophus: without tophus Qualified Code(s): M1A.9XX0 - Chronic gout, unspecified, without tophus (tophi) (10) History of CVA (cerebrovascular accident) SNOMED Code(s): 995600820 Code(s): Z86.73 - PRSNL HX OF TIA (TIA), AND CEREB INFRC W/O RESID DEFICITS Status: Chronic Priority: Medium Current Visit: No (11) History of seizure SNOMED Code(s): 078454754 Code(s): Z87.898 - PERSONAL HISTORY OF OTHER SPECIFIED CONDITIONS Status: Chronic Priority: Medium Current Visit: No (12) Hemiplegia SNOMED Code(s): 04390966 Code(s): G81.90 - HEMIPLEGIA, UNSPECIFIED AFFECTING UNSPECIFIED SIDE Status: Chronic Priority: Medium Current Visit: No Qualifiers: Hemiplegia type: unspecified type Hemiplegia etiology: unspecified etiology Hemiplegia laterality: left nondominant side Qualified Code(s): G81.94 - Hemiplegia, unspecified affecting left nondominant side (13) Hemiparesis SNOMED Code(s): 87640917 Code(s): G81.90 - HEMIPLEGIA, UNSPECIFIED AFFECTING UNSPECIFIED SIDE Status: Chronic Priority: Medium Current Visit: No Qualifiers: Hemiparesis etiology: unspecified Hemiparesis laterality: left nondominant side Qualified Code(s): G81.94 - Hemiplegia, unspecified affecting left nondominant side (14) Depression SNOMED Code(s): 15344425 Code(s): F32.9 - MAJOR DEPRESSIVE DISORDER, SINGLE EPISODE, UNSPECIFIED Status: Chronic Priority: Low Current Visit: No Qualifiers: Depression Type: unspecified Qualified Code(s): F32.9 - Major depressive disorder, single episode, unspecified (15) Type II diabetes mellitus SNOMED Code(s): 99843444 Code(s): E11.9 - TYPE 2 DIABETES MELLITUS WITHOUT COMPLICATIONS Status: Chronic Priority: Medium Current Visit: No Qualifiers: Diabetes mellitus long-term insulin use: with 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 Diabetes mellitus complication status: with other specified complication Qualified Code(s): E11.69 - Type 2 diabetes mellitus with other specified complication; 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 (16) Afib, Atrial fibrillation SNOMED Code(s): 71539216 Code(s): I48.91 - UNSPECIFIED ATRIAL FIBRILLATION Status: Chronic Priority: Medium Current Visit: No (17) Chronic renal insufficiency SNOMED Code(s): 666045651 Code(s): N18.9 - CHRONIC KIDNEY DISEASE, UNSPECIFIED Status: Chronic Priority: Medium Current Visit: No Qualifiers: Chronic kidney disease stage: stage 3 (moderate) Chronic kidney disease stage 3 subtype: stage 3b (GFR 30-44) Qualified Code(s): N18.32 - Chronic kidney disease, stage 3b (18) Dehydration SNOMED Code(s): 27754291 Code(s): E86.0 - DEHYDRATION Status: Acute Priority: High Current Visit: Yes (19) Elevated troponin SNOMED Code(s): 691175596, 671815114, 505843059 Code(s): R79.89 - OTHER SPECIFIED ABNORMAL FINDINGS OF BLOOD CHEMISTRY Status: Acute Priority: High Current Visit: Yes (20) Urinary tract infection SNOMED Code(s): 04231525 Code(s): N39.0 - URINARY TRACT INFECTION, SITE NOT SPECIFIED Status: Acute Priority: High Current Visit: Yes Qualifiers: Urinary tract infection type: acute cystitis Hematuria presence: with hematuria Qualified Code(s): N30.01 - Acute cystitis with hematuria (21) Hypoalbuminemia SNOMED Code(s): 765793737 Code(s): E88.09 - OTH DISORDERS OF PLASMA-PROTEIN METABOLISM, NEC Status: Acute Priority: Medium Current Visit: Yes - Problem List Review Problem List Initiated/Reviewed/Updated: Yes - My Orders Last 24 Hours: My Active Orders 09/12/20 Lunch Mechanical Soft Diet [DIET] 09/12/20 11:43 Patient Status [ADT] Routine 09/12/20 11:44 Height and Weight [RC] 06 Consult to Case Management/Activity Assistant [CONS] Routine Acetaminophen [TylenoL] 650 mg PO Q4H PRN Resuscitation Status Routine 09/12/20 11:45 Cardiac Monitoring [RC] CONTINUOUS Intake and Output [RC] 04,16 Oxygen Therapy [RC] PRN Pulse Oximetry [RC] PRN VTE/DVT Education [RC] DAILY Vital Signs [RC] Q4HR 09/12/20 11:58 Docusate Sodium/Sennosides [Senna Plus] 1 tab PO DAILY PRN bisacodyL [Dulcolax] 10 mg RECTAL DAILY PRN 09/12/20 12:03 Accu Check [Blood Glucose Check, Bedside] [RC] QIDACANDBED 09/12/20 12:27 Up to Chair [RC] BID Consult to Bedspread Cutter Hand [CONS] Routine 09/12/20 13:50 Aspiration Precautions [RC] BID 09/12/20 Dinner Thickened Liquids [DIET] Insulin Lispro [HumaLOG] See Protocol SUBCUT QIDACANDBED 09/12/20 20:30 Piperacillin/Tazobactam [Piperacil-Tazobact] 4.5 gm Sodium Chloride 0.9% [Normal Saline] 100 ml IV Q8H 09/12/20 21:00 Apixaban [Eliquis] 2.5 mg PO BID Metoprolol Tartrate [Lopressor] 37.5 mg PO BID 09/13/20 09:00 Aspirin 81 mg PO DAILY Donepezil [Aricept] 10 mg PO DAILY Enalapril [Vasotec] 5 mg PO DAILY Famotidine [Pepcid] 20 mg PO DAILY Furosemide [Lasix] 40 mg PO DAILY Insulin Glarg,Human.Rec.Analog [LantUS] 10 unit SUBCUT DAILY Isosorbide Mononitrate [Imdur] 30 mg PO DAILY Sertraline [Zoloft] 50 mg PO DAILY allopurinoL [Zyloprim] 200 mg PO DAILY 09/14/20 05:11 BASIC METABOLIC PANEL,BMP [CHEM] AM CBC WITH AUTO DIFF [HEME] AM MAGNESIUM [CHEM] AM 09/15/20 05:11 BASIC METABOLIC PANEL,BMP [CHEM] AM CBC WITH AUTO DIFF [HEME] AM MAGNESIUM [CHEM] AM 01/31/21 05:11 BASIC METABOLIC PANEL,BMP [CHEM] AM CBC WITH AUTO DIFF [HEME] AM MAGNESIUM [CHEM] AM - Assessment Assessment:: Assessment - day of admission - 09/12/20 * 84 yo male who presents to ED with chest discomfort * Patient resides at [facility] * Significant baseline dementia, Hx/o A-fib, CAD, HLD, HTN, LA, urinary incontinence, dyspagia, gout, CVA, left hemiplegia and hemiparesis, seizures, Type II DM, insomnia * Noted to be quite dry on exam * 12-lead EKG in ED shows A-fib at 117 BPM with RBBB, ST depression in V2-V5, II, aVF * CXR in ED shows minimal atelectasis adjacent to left hemidiaphragm, resolved CHF, nothing acute * Labs * WBC 16.44 * Hgb 11.7 * Plt 188 * Neutrophils 14.56 * Sodium 145 * Potassium 3.7 * Anion gap 14.7 * BUN 40 * Creatinine 1.8 * GFR 36 (appears near baseline) * Glucose 188 * Magnesium 2.2 * Bilirubin 1.1 (chronic) * AST 15, ALT 21, Alk phos 80 * Troponin 0.090 * CRP 22.3 * Pro-BNP 7829 (Down from 18K on last visit) * Albumin 3.1 * Lactic acid 1.2 * Amylase 23 * Lipase 79 * UA: Concentrated and cloudy with 1+ protein, 1+ occult blood, 1+ bilirubin, 1+ leukocyte esterase, 5-10 hyaline casts, 20-30 RBC, 40-50 WBCs, 5-10 squamous epithelial cells, moderate sediment, many bacteria * SARS-CoV-2 RNA negative * Given 500ml Fluid bolus in ED and started on 2gm Rocephin * Risk factors for UTI include immobility and chronic incontinence * Prior UTIs include Enterococcus faecalis from 02/09/2020 and Klebsiella pneumoniae from 02/24/2014 * Sepsis screen: Bacterial infection, Tachycardic and leukocytosis, Hypotension noted in ED * Meets criteria * Concern with fluid bolus as patient has significant cardiac history including recent LA and CHF exacerbation * Admitted for pain of UTI, sepsis, and dehydration 09/13/20 * Patient denies any symptoms today * BP remains stable * Urine growing gram negative rods * Blood cultures negative thus far * Labs * WBC 9.87 * Hgb 10.9 * Plt 168 * Sodium 149 * Potassium 3.5 * Anion gap 16.5 * BUN 32 * Creatinine 1.4 * GFR 48 * Glucose 121 * (Repeat troponin yesterday was 0.082) * Continue current treatment plan - Plan Plan:: Urinary tract infection Dehydration Sepsis Urinary incontinence Chronic renal insufficiency * IV fluids as ordered judiciously due to significant cardiac history * Continue zosyn given patients prior UTI history culture and sensitivities * Monitor vital signs * Monitor daily labs * Await urine culture and sensitivities - gram negative rods thus far * Monitor blood cultures - negative thus far Dysphagia Hypoalbuminemia * Continue BRANDAN, Level 5 Minced and moist diet per SNF records * Continue honey thick liquids * 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 * CM/SW consultation for discharge planning CAD (coronary artery disease) HLD (hyperlipidemia) HTN (hypertension) History of LA (myocardial infarction) Elevated troponin, improving Afib, Atrial fibrillation * Continue home medications * Obtain records from last hospitalization * Telemetry GERD (gastroesophageal reflux disease) * Continue famotidine daily given GERD history and current epigastric pain Gout * No current concerns * Continue home medications History of CVA (cerebrovascular accident) History of seizure Hemiplegia Hemiparesis * Will hold off PT/OT for now as patient appears at baseline * Lauryn lift as per SNF - continue * Up to chair Depression * Continue home medications Type II diabetes mellitus * Continue home LA insulin * QID AC and Bedtime glucose checks * Low dose sliding scale for now as patient has reportedly not been eating well * Monitor and adjust insulin as needed Code Status: Full Code (Discussed with patient who reported this to multiple providers. SNF paperwork lists patient as "full code, palliative care." ED provider contacted patients family to address this and they want to honor their fathers wishes and be contacted should something happen. PCP: Dr. Isbell DVT prophylaxis: Home Eliquis Social: Patient resides at [facility] Disposition: Patient admitted to hospital floor for management of UTI, Sepsis, and dehydration Prognosis: Overall very poor prognosis given patients significant comorbidities and prior recent LA. Will need to address code status further with patient and family. <Gordo Barrientos - Last Filed: 09/13/20 14:34> - Patient Data Vitals - Most Recent: Last Vital Signs Temp 36.8 C 09/13/20 10:51 Pulse 100 09/13/20 10:51 Resp 14 01/28/21 10:51 BP 126/66 09/13/20 10:51 Pulse Ox 100 09/13/20 12:00 I&O - Last 24 Hours: Intake & Output 09/12/20 09/13/20 09/13/20 22:59 06:59 14:59 Intake Total 720 895 Output Total 150 125 Balance 570 770 Lab Results Last 24 Hours: Laboratory Results - last 24 hr 09/12/20 09/12/20 09/12/20 Range/Units 13:59 17:07 20:48 WBC (4.23-9.07) K/mm3 RBC (4.63-6.08) M/mm3 Hgb (13.7-17.5) gm/dl Hct (40.1-51.0) % MCV (79.0-92.2) fl MCH (25.7-32.2) pg MCHC (32.2-35.5) g/dl RDW Std Deviation (35.1-43.9) fL Plt Count (163-337) K/mm3 MPV (9.4-12.3) fl Neut % (Auto) (34.0-67.9) % Lymph % (Auto) (21.8-53.1) % [place] % (Auto) (5.3-12.2) % Eos % (Auto) (0.8-7.0) Baso % (Auto) (0.1-1.2) % Neut # (Auto) (1.78-5.38) K/mm3 Lymph # (Auto) (1.32-3.57) K/mm3 [place] # (Auto) (0.30-0.82) K/mm3 Eos # (Auto) (0.04-0.54) K/mm3 Baso # (Auto) (0.01-0.08) K/mm3 Manual Slide Review Sodium (136-145) mEq/L Potassium (3.5-5.1) mEq/L Chloride (98-107) mEq/L Carbon Dioxide (21-32) mEq/L Anion Gap (5-15) BUN (7-18) mg/dL Creatinine (0.7-1.3) mg/dL Est Cr Clr Drug Dosing mL/min Estimated GFR (MDRD) (>60) mL/min BUN/Creatinine Ratio (14-18) Glucose (83-115) mg/dL POC Glucose 125 H 171 H (83-110) mg/dL Calcium (8.5-10.1) mg/dL Magnesium (1.8-2.4) mg/dl CK-MB (CK-2) 0.7 (0-3.6) ng/ml Troponin I 0.082 H* (0.00-0.056) ng/mL MRSA (PCR) 09/12/20 09/13/20 09/13/20 Range/Units 21:15 04:54 04:54 WBC 9.87 H (4.23-9.07) K/mm3 RBC 3.66 L (4.63-6.08) M/mm3 Hgb 10.9 L (13.7-17.5) gm/dl Hct 35.1 L (40.1-51.0) % MCV 95.9 H (79.0-92.2) fl MCH 29.8 (25.7-32.2) pg MCHC 31.1 L (32.2-35.5) g/dl RDW Std Deviation 48.2 H (35.1-43.9) fL Plt Count 168 (163-337) K/mm3 MPV 11.0 (9.4-12.3) fl Neut % (Auto) 86.1 H (34.0-67.9) % Lymph % (Auto) 8.0 L (21.8-53.1) % [place] % (Auto) 5.4 (5.3-12.2) % Eos % (Auto) 0.1 L (0.8-7.0) Baso % (Auto) 0.1 (0.1-1.2) % Neut # (Auto) 8.50 H (1.78-5.38) K/mm3 Lymph # (Auto) 0.79 L (1.32-3.57) K/mm3 [place] # (Auto) 0.53 (0.30-0.82) K/mm3 Eos # (Auto) 0.01 L (0.04-0.54) K/mm3 Baso # (Auto) 0.01 (0.01-0.08) K/mm3 Manual Slide Review Abnormal smear Sodium 149 H (136-145) mEq/L Potassium 3.5 (3.5-5.1) mEq/L Chloride 109 H (98-107) mEq/L Carbon Dioxide 27 (21-32) mEq/L Anion Gap 16.5 H (5-15) BUN 32 H (7-18) mg/dL Creatinine 1.4 H (0.7-1.3) mg/dL Est Cr Clr Drug Dosing 34.72 mL/min Estimated GFR (MDRD) 48 (>60) mL/min BUN/Creatinine Ratio 22.9 H (14-18) Glucose 121 H (83-115) mg/dL POC Glucose (83-110) mg/dL Calcium 8.6 (8.5-10.1) mg/dL Magnesium 2.1 (1.8-2.4) mg/dl CK-MB (CK-2) (0-3.6) ng/ml Troponin I (0.00-0.056) ng/mL MRSA (PCR) Negative 09/13/20 Range/Units 06:57 WBC (4.23-9.07) K/mm3 RBC (4.63-6.08) M/mm3 Hgb (13.7-17.5) gm/dl Hct (40.1-51.0) % MCV (79.0-92.2) fl MCH (25.7-32.2) pg MCHC (32.2-35.5) g/dl RDW Std Deviation (35.1-43.9) fL Plt Count (163-337) K/mm3 MPV (9.4-12.3) fl Neut % (Auto) (34.0-67.9) % Lymph % (Auto) (21.8-53.1) % [place] % (Auto) (5.3-12.2) % Eos % (Auto) (0.8-7.0) Baso % (Auto) (0.1-1.2) % Neut # (Auto) (1.78-5.38) K/mm3 Lymph # (Auto) (1.32-3.57) K/mm3 [place] # (Auto) (0.30-0.82) K/mm3 Eos # (Auto) (0.04-0.54) K/mm3 Baso # (Auto) (0.01-0.08) K/mm3 Manual Slide Review Sodium (136-145) mEq/L Potassium (3.5-5.1) mEq/L Chloride (98-107) mEq/L Carbon Dioxide (21-32) mEq/L Anion Gap (5-15) BUN (7-18) mg/dL Creatinine (0.7-1.3) mg/dL Est Cr Clr Drug Dosing mL/min Estimated GFR (MDRD) (>60) mL/min BUN/Creatinine Ratio (14-18) Glucose (83-115) mg/dL POC Glucose 127 H (83-110) mg/dL Calcium (8.5-10.1) mg/dL Magnesium (1.8-2.4) mg/dl CK-MB (CK-2) (0-3.6) ng/ml Troponin I (0.00-0.056) ng/mL MRSA (PCR) Geoffrey Results Last 24 Hours: Microbiology 09/12/20 10:20 Urine Culture - Preliminary Urine, Clean Catch Gram Negative Rods 09/12/20 09:35 Aerobic Blood Culture - Preliminary Blood - Venous NO GROWTH AFTER 1 DAY Anaerobic Blood Culture - Preliminary NO GROWTH AFTER 1 DAY 09/12/20 09:45 Aerobic Blood Culture - Preliminary Blood - Venous - Lab Draw NO GROWTH AFTER 1 DAY Anaerobic Blood Culture - Preliminary NO GROWTH AFTER 1 DAY Med Orders - Current: Current Medications Acetaminophen (Tylenol) 650 mg PO Q4H PRN PRN Reason: Pain (Mild 1-3)/fever Allopurinol (Zyloprim) 200 mg PO DAILY [facility] Last Admin: 09/13/20 09:29 Dose: 200 mg Documented by: Apixaban (Eliquis) 5 mg PO BID [facility] Last Admin: 09/13/20 09:29 Dose: 5 mg Documented by: Aspirin (Aspirin) 81 mg PO DAILY [facility] Last Admin: 09/13/20 09:29 Dose: 81 mg Documented by: Bisacodyl (Dulcolax) 10 mg RECTAL DAILY PRN PRN Reason: Constipation Donepezil HCl (Aricept) 10 mg PO DAILY [facility] Last Admin: 09/13/20 09:28 Dose: 10 mg Documented by: Enalapril Maleate (Vasotec) 5 mg PO DAILY [facility] Last Admin: 09/13/20 09:27 Dose: 5 mg Documented by: Famotidine (Pepcid) 20 mg PO DAILY [facility] Last Admin: 09/13/20 09:29 Dose: 20 mg Documented by: Furosemide (Lasix) 40 mg PO DAILY [facility] Last Admin: 09/13/20 09:29 Dose: 40 mg Documented by: Piperacillin Sod/Tazobactam (Sod 4.5 gm/ Sodium Chloride) 100 mls @ 25 mls/hr IV Q8H [facility] Last Admin: 09/13/20 13:13 Dose: 25 mls/hr Documented by: Insulin Glargine (Lantus) 10 unit SUBCUT DAILY [facility] Last Admin: 09/13/20 09:27 Dose: 10 units Documented by: Insulin Human Lispro (Humalog) 0 unit SUBCUT QIDACANDBED [facility]; Protocol Last Admin: 09/13/20 11:44 Dose: Not Given Documented by: Isosorbide Mononitrate (Imdur) 30 mg PO DAILY [facility] Last Admin: 09/13/20 09:28 Dose: 30 mg Documented by: Metoprolol Tartrate (Lopressor) 37.5 mg PO BID [facility] Last Admin: 09/13/20 09:28 Dose: 37.5 mg Documented by: Senna/Docusate Sodium (Senna Plus) 1 tab PO DAILY PRN PRN Reason: Constipation Sertraline HCl (Zoloft) 50 mg PO DAILY [facility] Last Admin: 09/13/20 09:29 Dose: 50 mg Documented by: Sodium Chloride (Saline Flush) 10 ml FLUSH ASDIRECTED PRN PRN Reason: Keep Vein Open Last Admin: 09/12/20 08:54 Dose: 10 ml Documented by: Discontinued Medications Apixaban (Eliquis) 2.5 mg PO BID [facility] Last Admin: 09/12/20 20:38 Dose: 2.5 mg Documented by: Sodium Chloride (Normal Saline) 500 mls @ 500 mls/hr IV .BOLUS ONE Stop: 09/12/20 09:56 Last Admin: 09/12/20 09:21 Dose: 500 mls/hr Documented by: Ceftriaxone Sodium 2 gm/ (Sodium Chloride) 100 mls @ 200 mls/hr IV ONETIME ONE Stop: 09/12/20 11:08 Last Admin: 09/12/20 11:17 Dose: 200 mls/hr Documented by: Piperacillin Sod/Tazobactam (Sod 4.5 gm/ Sodium Chloride) 100 mls @ 200 mls/hr IV ONETIME ONE Stop: 09/12/20 12:59 Last Admin: 09/12/20 12:55 Dose: 200 mls/hr Documented by: Lactated Ringer's (Ringers, Lactated) 1,000 mls @ 75 mls/hr IV ASDIRECTED ALENA Stop: 09/13/20 01:19 Last Admin: 09/12/20 12:55 Dose: 75 mls/hr Documented by: Sepsis Event Note - Focused Exam Vital Signs: Vital Signs Temp Pulse Resp BP Pulse Ox Pulse Ox 09/13/20 12:00 100 100 09/13/20 10:51 36.8 C 100 14 126/66 100 09/13/20 09:28 105 H 120/77 09/13/20 09:27 120/77 09/13/20 07:18 36.9 C 105 H 16 120/77 97 09/13/20 03:42 36.9 C 91 18 108/68 95 - Assessment Assessment:: I have seen and examined the patient independently of Young Swanson PA-C. I have reviewed the orders and agree with the plan of care as outlined by him. I have discussed the case with him. Please see orders.
[2020-09-13] MEDS: Enalapril 5 MG Tab PO SCH (09:27)
[2020-09-13] MEDS: Insulin Glarg,Human.Rec.Analog 100 Unit/ML SUBCUT SCH (09:27)
[2020-09-13] MEDS: Donepezil 10 MG Tab PO SCH (09:28)
[2020-09-13] MEDS: Metoprolol Tartrate 25 MG Tab PO SCH ×2 (09:28→20:55)
[2020-09-13] MEDS: Isosorbide Mononitrate 30 MG Tab.ER PO SCH (09:28)
[2020-09-13] MEDS: Aspirin 81 MG Tab.Chew PO SCH (09:29)
[2020-09-13] MEDS: Furosemide 40 MG Tab PO SCH (09:29)
[2020-09-13] MEDS: Sertraline 50 MG Tab PO SCH (09:29)
[2020-09-13] MEDS: Apixaban 5 MG Tab PO SCH ×2 (09:29→20:57)
[2020-09-13] MEDS: Allopurinol 100 MG Tab PO SCH (09:29)
[2020-09-13] MEDS: Famotidine 20 MG Tab PO SCH (09:29)
[2020-09-14] MEDS: Piperacillin/Tazobactam 4.5 GM in Sodium Chloride 0.9% 100 ML IV SCH (04:42)
--- NOTE | 2020-09-14 08:13 | PCM.DCSUM1 ---
<Young Swanson - Last Filed: 09/14/20 10:55> Discharge Summary - Hospital Course HPI Initial Comments: This is an 84-year-old male who presents to our ED on 09/12/2020 via [place] [facility] from [facility] where he resides with reports of chest discomfort and tachycardia. Patient has baseline significant dementia and therefore is hard to get much of a history from him. Per halfway records and our old records patient was sent to [place] on 09/06/2020 due to heart failure and positive troponins. Is also noted to have A. fib. It appears his Cardizem was discontinued during that hospitalization. Today on admission patient reports chest discomfort but he was unable to elaborate. Reports pain is worse during chest palpation and when taking a deep breath. He is noted to be quite dry with no edema. In the ED he is noted to be afebrile with a temp of 97.1 but tachycardic at 117. Respirations are 13. Blood pressure is 110/64. Pulse ox is 100% on room air. Twelve-lead EKG is obtained showing atrial fibrillation at a rate of 117. There is a right bundle branch block noted and ST depression in V2 through V5, II, and aVF. Labs are obtained showing a WBC of 16.44. Hemoglobin 11.7. Platelets 188. Neutrophils are elevated at 14.56. Sodium is 145. Potassium 3.7. Chloride 105. Carbon oxide 29. Anion gap 14.7. BUN is high at 40. Creatinine is 1.8. GFR is 36. Glucose is 188. Calcium 8.9. Magnesium is 2.2. Bilirubin 1.1. AST is 15, ALT 21, alkaline phosphatase 80. Troponin is positive at 0.090. CRP is quite high at 22.3. proBNP is 7829. Protein is 6.9. Albumin is 3.1. Lactic acid is 1.2. Amylase is 23. Lipase is 79. UA is positive with concentrated urine that is cloudy, 1+ protein, 1+ occult blood, 1+ bilirubin, 1+ leukocyte esterase, 5-10 hyaline casts, 20-30 RBCs, 40-50 WBCs, 5-10 squamous epithelial cells, moderate amorphous sediment, and many bacteria are seen. SARS-CoV-2 virus is negative. He is given Rocephin 2 g and a 500 mL fluid bolus. There are concerns of the patient having had CHF in the past. Chest x- ray is obtained and interpreted by Dr. Mattson as "1. Minimal atelectasis located adjacent to the left hemidiaphragm. 2. Previous findings of CHF have resolved. 3. Nothing acute is otherwise seen." He carries a history of dysphagia with nectar thickened liquids and crushed meds, along with pured foods. He also carries a history of A. fib, CAD, HLD, hypertension, [place], GERD, urinary incontinence, gout, chronic muscle weakness, hemiplegia and hemiparesis of the left side, CVA, seizure, depression, insomnia, and type II DM. As noted he resides at [facility]. He the halfway paperwork is a full code on palliative care. Per ED provider family was contacted to address this and they report they would like to honor their father's wishes but that they should be contacted immediately should he go into cardiac or respiratory arrest. Patient is asked multiple times by multiple providers about his CODE STATUS and he reports full code. He is subsequently admitted to the medical floor on telemetry. Diagnosis: Stroke: No - Discharge Data Discharge Date: 09/14/20 (Admit date: 09/12/20) Discharge Disposition: DC/Tfer to SNF 03 Condition: Good - Referral to Home Health Primary Care Physician: Pepe Isbell MD - Discharge Diagnosis/Problem(s) (1) Dysphagia SNOMED Code(s): 13532006, 311135820 ICD Code: R13.10 - DYSPHAGIA, UNSPECIFIED Status: Chronic Priority: Medium Qualifiers: Dysphagia type: unspecified Qualified Code(s): R13.10 - Dysphagia, unspecified (2) halfway resident SNOMED Code(s): 802465992 ICD Code: Z59.3 - PROBLEMS RELATED TO LIVING IN RESIDENTIAL INSTITUTION Status: Chronic Priority: Low (3) CAD (coronary artery disease) SNOMED Code(s): 42251215 ICD Code: I25.10 - ATHSCL HEART DISEASE OF [place] CORONARY ARTERY W/O ANG PCTRS Status: Chronic Priority: Low Qualifiers: Coronary Disease-Associated Artery/Lesion type: unspecified vessel or lesion type [place] vs. transplanted heart: [place] heart Associated angina: angina presence unspecified Qualified Code(s): I25.10 - Atherosclerotic heart disease of [place] coronary artery without angina pectoris (4) HLD (hyperlipidemia) SNOMED Code(s): 56546972 ICD Code: E78.5 - HYPERLIPIDEMIA, UNSPECIFIED Status: Chronic Priority: Low Qualifiers: Hyperlipidemia type: unspecified Qualified Code(s): E78.5 - Hyperlipidemia, unspecified (5) HTN (hypertension) SNOMED Code(s): 35887969 ICD Code: I10 - ESSENTIAL (PRIMARY) HYPERTENSION Status: Chronic Priority: Medium Qualifiers: Hypertension type: unspecified Qualified Code(s): I10 - Essential (primary) hypertension (6) History of OK (myocardial infarction) SNOMED Code(s): 144090279 ICD Code: I25.2 - OLD MYOCARDIAL INFARCTION Status: Chronic Priority: Low (7) GERD (gastroesophageal reflux disease) SNOMED Code(s): 013773633 ICD Code: K21.9 - GASTRO-ESOPHAGEAL REFLUX DISEASE WITHOUT ESOPHAGITIS Status: Chronic Priority: Medium Qualifiers: Esophagitis presence: esophagitis presence not specified Qualified Code(s): K21.9 - Gastro-esophageal reflux disease without esophagitis (8) Urinary incontinence SNOMED Code(s): 924281012 ICD Code: R32 - UNSPECIFIED URINARY INCONTINENCE Status: Chronic Priority: Medium Qualifiers: Urinary Incontinence type: unspecified incontinence Qualified Code(s): R32 - Unspecified urinary incontinence (9) Gout SNOMED Code(s): 91321156 ICD Code: M10.9 - GOUT, UNSPECIFIED Status: Chronic Priority: Low Qualifiers: Gout site: unspecified site Gout etiology: unspecified cause Chronicity: chronic Presence of tophus: without tophus Qualified Code(s): M1A.9XX0 - Chronic gout, unspecified, without tophus (tophi) (10) History of CVA (cerebrovascular accident) SNOMED Code(s): 321019578 ICD Code: Z86.73 - PRSNL HX OF TIA (TIA), AND CEREB INFRC W/O RESID DEFICITS Status: Chronic Priority: Medium (11) History of seizure SNOMED Code(s): 783511881 ICD Code: Z87.898 - PERSONAL HISTORY OF OTHER SPECIFIED CONDITIONS Status: Chronic Priority: Medium (12) Hemiplegia SNOMED Code(s): 65633799 ICD Code: G81.90 - HEMIPLEGIA, UNSPECIFIED AFFECTING UNSPECIFIED SIDE Status: Chronic Priority: Medium Qualifiers: Hemiplegia type: unspecified type Hemiplegia etiology: unspecified etiology Hemiplegia laterality: left nondominant side Qualified Code(s): G81.94 - Hemiplegia, unspecified affecting left nondominant side (13) Hemiparesis SNOMED Code(s): 79097922 ICD Code: G81.90 - HEMIPLEGIA, UNSPECIFIED AFFECTING UNSPECIFIED SIDE Status: Chronic Priority: Medium Qualifiers: Hemiparesis etiology: unspecified Hemiparesis laterality: left nondominant side Qualified Code(s): G81.94 - Hemiplegia, unspecified affecting left nondominant side (14) Depression SNOMED Code(s): 78927278 ICD Code: F32.9 - MAJOR DEPRESSIVE DISORDER, SINGLE EPISODE, UNSPECIFIED Status: Chronic Priority: Low Qualifiers: Depression Type: unspecified Qualified Code(s): F32.9 - Major depressive disorder, single episode, unspecified (15) Type II diabetes mellitus SNOMED Code(s): 81042856 ICD Code: E11.9 - TYPE 2 DIABETES MELLITUS WITHOUT COMPLICATIONS Status: Chronic Priority: Medium Qualifiers: Diabetes mellitus terminal gauger insulin use: with terminal gauger use Diabetes mellitus complication status: with other specified complication Qualified Code(s): E11.69 - Type 2 diabetes mellitus with other specified complication; Z79.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 of insulin (16) Afib, Atrial fibrillation SNOMED Code(s): 75984192 ICD Code: I48.91 - UNSPECIFIED ATRIAL FIBRILLATION Status: Chronic Priority: Medium (17) Chronic renal insufficiency SNOMED Code(s): 010925254 ICD Code: N18.9 - CHRONIC KIDNEY DISEASE, UNSPECIFIED Status: Chronic Priority: Medium Qualifiers: Chronic kidney disease stage: stage 3 (moderate) Chronic kidney disease stage 3 subtype: stage 3b (GFR 30-44) Qualified Code(s): N18.32 - Chronic kidney disease, stage 3b (18) Dehydration SNOMED Code(s): 79597743 ICD Code: E86.0 - DEHYDRATION Status: Acute Priority: High (19) Elevated troponin SNOMED Code(s): 024978051, 956306107, 360843444 ICD Code: R79.89 - OTHER SPECIFIED ABNORMAL FINDINGS OF BLOOD CHEMISTRY Status: Acute Priority: High (20) Urinary tract infection SNOMED Code(s): 66392066 ICD Code: N39.0 - URINARY TRACT INFECTION, SITE NOT SPECIFIED Status: Acute Priority: High Qualifiers: Urinary tract infection type: acute cystitis Hematuria presence: with hematuria Qualified Code(s): N30.01 - Acute cystitis with hematuria (21) Hypoalbuminemia SNOMED Code(s): 770148502 ICD Code: E88.09 - OTH DISORDERS OF PLASMA-PROTEIN METABOLISM, NEC Status: Acute Priority: Medium - Patient Summary/Data Consults: Consultations 09/12/20 11:44 Consult to Case Management/Atomizer Assembler [CONS] Routine 09/12/20 12:27 Consult to Fur Glazer [CONS] Routine Labs Pending at D/C: Blood cultures - no growth after 2 days Recommended Follow-up Testing/Procedures: Follow-up with primary care provider within 7-10 days of discharge, sooner if needed. Hospital Course: This is an 84-year-old male who presented to ED on 09/12/2020 with chest discomfort. Patient does have a history of baseline dementia and is pleasantly confused. On exam he is noted to be quite dry and his UA is concerning for urinary tract infection. Given patient's baseline confusion his ROS is difficult to obtain and oftentimes changes as he would report chest pain and then deny it. Twelve-lead EKG was obtained showing A. fib at 170 bpm with right bundle branch block and ST depression noted in V2 through V5, II, and aVF. Troponin was obtained was 0.090. proBNP was 7829 which is down from 18,000 on his last visit. He was reporting epigastric abdominal pain but otherwise no complaints. He was given a 500 mL fluid bolus in the ED and started on 2 g of Rocephin as he was noted to be tachycardic and hypotensive. He did qualify for sepsis. Fluid was given judiciously as patient has a significant cardiac history including CHF. Prior urine sensitivities were reviewed and patient was noted to have Enterococcus faecalis on 02/09/2020 and Klebsiella pneumonia on 02/24/2014. Patient is then switched to IV Zosyn for better coverage. After administration of IV fluid bolus and maintenance fluids patient's blood pressure responds well. Therefore sepsis reevaluation showed improvement. White count did trend downward. Repeat troponin was 0.082. Urine culture grew out pansensitive E. coli and patient was switched to p.o. Keflex 500 mg 3 times daily. This will be continued at discharge for 5 more days including today which would be a total of 7 days of treatment. Blood cultures remain negative x2 days. His potassium this morning was noted to be 3.0 and the patient is on chronic 20 mill equivalent of daily potassium. 40 mEq of potassium was given today and prescription will be sent for 40 more milliequivalents tonight. Patient should resume his daily home supplementation tomorrow. Blood pressures have been normal and patient should discontinue Norvasc. Nursing staff was instructed to check blood pressure twice daily and record these in a journal bring it with to all medical appointments. This way it can be monitored if the patient does need continued hypertension meds. Note patient was on a level 5 minced and moist diet with honey thickened liquids while here. This should be continued at SNF as it was reportedly his baseline. All home medications were continued with the exception of Norvasc as mentioned prior. Patient was sent prescription for Keflex and potassium as mentioned prior. Recommend follow-up within 7 to 10 days of discharge, sooner if needed. Recommend PCP recheck CBC, CMP, and magnesium at that visit. Patient will be discharged back to [facility] today. - Patient Instructions Diet: Mechanical Soft Diet, Other: Honey thickened liquids Activity: As Tolerated Driving: Do Not Drive Notify Provider of: Fever, Increased Pain, Nausea and/or Vomiting Other/Special Instructions: Follow-up with primary care provider within 7-10 days of dishcarge, sooner if needed. You were prescribed an antibotic for your urinary tract infection. Take this as precribed until compteted, even if you feel 100% better. Continue home medications as ordered. Your blood pressures were good here after admission so your Norvasc was discontinued. Take blood pressure twice a day and record in a journal. Bring this with to all medical appointments. Your potassium was low here and we started to supplement this. Take it as prescribed tonight morning. Resume your daily 20mg supplementation tomorrow (09/15/20). Should symptoms return or worsen, contact primary care provider or return to the Emergency Department. - Discharge Plan *PRESCRIPTION DRUG MONITORING PROGRAM REVIEWED*: No *COPY OF PRESCRIPTION DRUG MONITORING REPORT IN PATIENT TURNER: No Prescriptions/Med Rec: cephALEXin [Keflex] 500 mg PO TID #14 cap Potassium Chloride 40 meq PO ONETIME #2 tablet.er Home Medications: Home Meds Insulin Detemir [Levemir Flexpen] 10 unit SQ DAILY 06/05/15 [History] Acetaminophen [Tylenol] 650 mg PO QID PRN 07/11/15 [History] Enalapril Maleate 5 mg PO DAILY 07/11/15 [History] Metoprolol Tartrate [Lopressor] 37.5 mg PO BID 07/11/15 [History] Sertraline [Zoloft] 50 mg PO DAILY 07/11/15 [History] allopurinoL [Zyloprim] 200 mg PO DAILY 07/11/15 [History] Bisacodyl [Dulcolax] 10 mg RECTAL DAILY PRN 07/16/16 [History] Crush Medications 1 dose PO ASDIRECTED 07/16/16 [History] Docusate Sodium/Sennosides [Senna Plus] 2 tab PO BID 07/16/16 [History] Menthol/Camphor [Sarna Anti-Itch] 1 applic TP BEDTIME 07/16/16 [History] [place] Thick Liquids 1 dose PO ASDIRECTED 07/16/16 [History] Nitroglycerin [Nitrostat] 0.4 mg SL Q5M PRN 07/16/16 [History] Potassium Chloride [Klor-Con M20] 20 meq PO DAILY 07/16/16 [History] Triamcinolone Acetonide [Triamcinolone Acetonide 0.1% Crm] 1 applic TOP BID PRN 07/16/16 [History] atorvaSTATin [Lipitor] 20 mg PO DAILY 07/16/16 [History] Apixaban [Eliquis] 5 mg PO BID 02/09/20 [History] Cetirizine [ZyrTEC] 5 mg PO DAILY 02/09/20 [History] Donepezil [Aricept] 10 mg PO DAILY 09/06/20 [History] Isosorbide Mononitrate [Imdur] 30 mg PO DAILY 09/06/20 [History] Acetaminophen 650 mg PO BID 09/12/20 [History] Aspirin 81 mg PO DAILY 09/12/20 [History] Cranberry 425 mg PO DAILY 09/12/20 [History] Furosemide [Lasix] 40 mg PO DAILY 09/12/20 [History] Insulin Aspart [NovoLOG] See Protocol SQ WITHMEALSANDBED 09/14/20 [History] Potassium Chloride 40 meq PO ONETIME #2 tablet.er 09/14/20 [Rx] cephALEXin [Keflex] 500 mg PO TID #14 cap 09/14/20 [Rx] Oxygen Therapy Mode: Room Air Patient Handouts: Urinary Tract Infection, Adult, Sepsis, Self Care, Adult Referrals: Pepe Isbell MD [Primary Care Provider] - 09/18/20 1:00 pm (Please follow up with Dr. Isbell on September 18 at 1:00pm. This appointment will occur at [facility]) - Discharge Summary/Plan Comment DC Time >30 min.: Yes (45 mins ) - General Info Date of Service: 09/14/20 Admission Dx/Problem (Free Text: Admission Diagnosis/Problem Admission Diagnosis/Problem UTI (urinary tract infection), uncomplicated Functional Status: Reports: Pain Controlled, Tolerating Diet, Urinating. Denies: Ambulating, New Symptoms - Review of Systems General: Reports: No Symptoms. Denies: Fever, Weakness, Fatigue, Malaise, Chills HEENT: Reports: No Symptoms. Denies: Headaches, Sore Throat Pulmonary: Reports: No Symptoms. Denies: Shortness of Breath, Cough, Sputum, Wheezing Cardiovascular: Reports: No Symptoms. Denies: Chest Pain, Palpitations, Dyspnea on Exertion Gastrointestinal: Reports: Abdominal Pain (mild epigastric ). Denies: Constipation, Decreased Appetite, Diarrhea, Nausea, Vomiting Genitourinary: Reports: No Symptoms. Denies: Pain Musculoskeletal: Reports: No Symptoms Skin: Reports: No Symptoms. Denies: Cyanosis Neurological: Reports: Confusion (baseline dementia ), Pre-Existing Deficit (Pre-existing left nondominant hemiplegia and hemiparesis), Difficulty Walking (baseline ), Gait Disturbance (baseline ) Psychiatric: Reports: No Symptoms - Patient Data Vitals - Most Recent: Last Vital Signs Temp 98.2 F 09/14/20 03:21 Pulse 91 09/14/20 03:21 Resp 12 09/14/20 03:21 BP 115/72 09/14/20 03:21 Pulse Ox 98 09/14/20 03:21 Weight - Most Recent: 80.15 kg I&O - Last 24 hours: Intake & Output 09/13/20 09/14/20 09/14/20 22:59 06:59 14:59 Intake Total 1160 190 Balance 1160 190 Lab Results - Last 24 hrs: Laboratory Results - last 24 hr 09/13/20 09/13/20 09/13/20 Range/Units 10:49 17:11 20:17 WBC (4.23-9.07) K/mm3 RBC (4.63-6.08) M/mm3 Hgb (13.7-17.5) gm/dl Hct (40.1-51.0) % MCV (79.0-92.2) fl MCH (25.7-32.2) pg MCHC (32.2-35.5) g/dl RDW Std Deviation (35.1-43.9) fL Plt Count (163-337) K/mm3 MPV (9.4-12.3) fl Neut % (Auto) (34.0-67.9) % Lymph % (Auto) (21.8-53.1) % [place] % (Auto) (5.3-12.2) % Eos % (Auto) (0.8-7.0) Baso % (Auto) (0.1-1.2) % Neut # (Auto) (1.78-5.38) K/mm3 Lymph # (Auto) (1.32-3.57) K/mm3 [place] # (Auto) (0.30-0.82) K/mm3 Eos # (Auto) (0.04-0.54) K/mm3 Baso # (Auto) (0.01-0.08) K/mm3 Sodium (136-145) mEq/L Potassium (3.5-5.1) mEq/L Chloride (98-107) mEq/L Carbon Dioxide (21-32) mEq/L Anion Gap (5-15) BUN (7-18) mg/dL Creatinine (0.7-1.3) mg/dL Est Cr Clr Drug Dosing mL/min Estimated GFR (MDRD) (>60) mL/min BUN/Creatinine Ratio (14-18) Glucose (83-115) mg/dL POC Glucose 133 H 169 H 210 H (83-110) mg/dL Calcium (8.5-10.1) mg/dL Magnesium (1.8-2.4) mg/dl 01/29/21 01/29/21 01/29/21 Range/Units 04:31 04:31 06:24 WBC 7.97 (4.23-9.07) K/mm3 RBC 3.73 L (4.63-6.08) M/mm3 Hgb 11.2 L (13.7-17.5) gm/dl Hct 35.6 L (40.1-51.0) % MCV 95.4 H (79.0-92.2) fl MCH 30.0 (25.7-32.2) pg MCHC 31.5 L (32.2-35.5) g/dl RDW Std Deviation 47.6 H (35.1-43.9) fL Plt Count 201 (163-337) K/mm3 MPV 10.7 (9.4-12.3) fl Neut % (Auto) 81.3 H (34.0-67.9) % Lymph % (Auto) 10.2 L (21.8-53.1) % [place] % (Auto) 8.4 (5.3-12.2) % Eos % (Auto) 0 L (0.8-7.0) Baso % (Auto) 0.0 L (0.1-1.2) % Neut # (Auto) 6.48 H (1.78-5.38) K/mm3 Lymph # (Auto) 0.81 L (1.32-3.57) K/mm3 [place] # (Auto) 0.67 (0.30-0.82) K/mm3 Eos # (Auto) 0.00 L (0.04-0.54) K/mm3 Baso # (Auto) 0.00 L (0.01-0.08) K/mm3 Sodium 145 (136-145) mEq/L Potassium 3.0 L (3.5-5.1) mEq/L Chloride 105 (98-107) mEq/L Carbon Dioxide 28 (21-32) mEq/L Anion Gap 15.0 (5-15) BUN 28 H (7-18) mg/dL Creatinine 1.5 H (0.7-1.3) mg/dL Est Cr Clr Drug Dosing 32.41 mL/min Estimated GFR (MDRD) 45 (>60) mL/min BUN/Creatinine Ratio 18.7 H (14-18) Glucose 112 (83-115) mg/dL POC Glucose 126 H (83-110) mg/dL Calcium 9.0 (8.5-10.1) mg/dL Magnesium 2.0 (1.8-2.4) mg/dl NACHO Results - Last 24 hrs: Microbiology 09/12/20 10:20 Urine Culture - Final Urine, Clean Catch Escherichia Coli 09/12/20 09:35 Aerobic Blood Culture - Preliminary Blood - Venous NO GROWTH AFTER 1 DAY Anaerobic Blood Culture - Preliminary NO GROWTH AFTER 1 DAY 09/12/20 09:45 Aerobic Blood Culture - Preliminary Blood - Venous - Lab Draw NO GROWTH AFTER 1 DAY Anaerobic Blood Culture - Preliminary NO GROWTH AFTER 1 DAY Med Orders - Current: Current Medications Acetaminophen (Tylenol) 650 mg PO Q4H PRN PRN Reason: Pain (Mild 1-3)/fever Allopurinol (Zyloprim) 200 mg PO DAILY [facility] Last Admin: 09/13/20 09:29 Dose: 200 mg Documented by: Apixaban (Eliquis) 5 mg PO BID [facility] Last Admin: 09/13/20 20:57 Dose: 5 mg Documented by: Aspirin (Aspirin) 81 mg PO DAILY [facility] Last Admin: 09/13/20 09:29 Dose: 81 mg Documented by: Bisacodyl (Dulcolax) 10 mg RECTAL DAILY PRN PRN Reason: Constipation Cephalexin (Keflex) 500 mg PO TID [facility] Donepezil HCl (Aricept) 10 mg PO DAILY [facility] Last Admin: 09/13/20 09:28 Dose: 10 mg Documented by: Enalapril Maleate (Vasotec) 5 mg PO DAILY [facility] Last Admin: 09/13/20 09:27 Dose: 5 mg Documented by: Famotidine (Pepcid) 20 mg PO DAILY [facility] Last Admin: 09/13/20 09:29 Dose: 20 mg Documented by: Furosemide (Lasix) 40 mg PO DAILY [facility] Last Admin: 09/13/20 09:29 Dose: 40 mg Documented by: Insulin Glargine (Lantus) 10 unit SUBCUT DAILY [facility] Last Admin: 09/13/20 09:27 Dose: 10 units Documented by: Insulin Human Lispro (Humalog) 0 unit SUBCUT QIDACANDBED [facility]; Protocol Last Admin: 09/14/20 07:45 Dose: Not Given Documented by: Isosorbide Mononitrate (Imdur) 30 mg PO DAILY [facility] Last Admin: 09/13/20 09:28 Dose: 30 mg Documented by: Metoprolol Tartrate (Lopressor) 37.5 mg PO BID [facility] Last Admin: 09/13/20 20:55 Dose: 37.5 mg Documented by: Potassium Chloride (Klor-Con M20) 40 meq PO BID [facility] Stop: 09/14/20 21:01 Senna/Docusate Sodium (Senna Plus) 1 tab PO DAILY PRN PRN Reason: Constipation Sertraline HCl (Zoloft) 50 mg PO DAILY [facility] Last Admin: 09/13/20 09:29 Dose: 50 mg Documented by: Sodium Chloride (Saline Flush) 10 ml FLUSH ASDIRECTED PRN PRN Reason: Keep Vein Open Last Admin: 09/12/20 08:54 Dose: 10 ml Documented by: Discontinued Medications Apixaban (Eliquis) 2.5 mg PO BID [facility] Last Admin: 09/12/20 20:38 Dose: 2.5 mg Documented by: Sodium Chloride (Normal Saline) 500 mls @ 500 mls/hr IV .BOLUS ONE Stop: 09/12/20 09:56 Last Admin: 09/12/20 09:21 Dose: 500 mls/hr Documented by: Ceftriaxone Sodium 2 gm/ (Sodium Chloride) 100 mls @ 200 mls/hr IV ONETIME ONE Stop: 09/12/20 11:08 Last Admin: 09/12/20 11:17 Dose: 200 mls/hr Documented by: Piperacillin Sod/Tazobactam (Sod 4.5 gm/ Sodium Chloride) 100 mls @ 200 mls/hr IV ONETIME ONE Stop: 09/12/20 12:59 Last Admin: 09/12/20 12:55 Dose: 200 mls/hr Documented by: Piperacillin Sod/Tazobactam (Sod 4.5 gm/ Sodium Chloride) 100 mls @ 25 mls/hr IV Q8H [facility] Last Admin: 09/14/20 04:42 Dose: 25 mls/hr Documented by: Lactated Ringer's (Ringers, Lactated) 1,000 mls @ 75 mls/hr IV ASDIRECTED [facility] Stop: 09/13/20 01:19 Last Admin: 09/12/20 12:55 Dose: 75 mls/hr Documented by: - Exam Quality Assessment: Reports: DVT Prophylaxis. Denies: Supplemental Oxygen, Urine Catheter General: Reports: Alert, Cooperative, No Acute Distress. Denies: Oriented HEENT: Reports: Pupils Equal, Pupils Reactive, Mucous Membr. Moist/[place] Neck: Reports: Supple, Trachea Midline Lungs: Reports: Clear to Auscultation, Normal Respiratory Effort Cardiovascular: Reports: Irregular Rhythm (irregularly irregular ) GI/Abdominal Exam: Normal Bowel Sounds, Soft, No Organomegaly, No Distention, Tender (mild epigastric tenderness - improved ) (Male) Exam: Deferred Rectal (Males) Exam: Deferred Back Exam: Reports: Decreased Range of Motion Extremities: No Pedal Edema, Limited Range of Motion. No: Leg Pain Skin: Reports: Warm, Dry, Intact Neurological: Reports: No New Focal Deficit Psy/Mental Status: Reports: Alert <Gordo Barrientos - Last Filed: 09/14/20 13:26> Discharge Summary - Referral to Home Health Primary Care Physician: Pepe Isbell MD - Patient Summary/Data Consults: Consultations 09/12/20 11:44 Consult to Case Management/Atomizer Assembler [CONS] Routine 09/12/20 12:27 Consult to Fur Glazer [CONS] Routine Hospital Course: I have seen and examined the patient independently of Young Swanson PA-C. I have reviewed the orders and agree with the plan of care as outlined by him. I have discussed the case with him. Please see orders. - Patient Data Vitals - Most Recent: Last Vital Signs Temp 36.3 C 09/14/20 07:15 Pulse 75 09/14/20 08:17 Resp 18 09/14/20 07:15 BP 110/93 H 09/14/20 08:23 Pulse Ox 98 09/14/20 07:15 I&O - Last 24 hours: Intake & Output 09/13/20 09/14/20 09/14/20 22:59 06:59 14:59 Intake Total 1160 190 Balance 1160 190 Lab Results - Last 24 hrs: Laboratory Results - last 24 hr 09/13/20 09/13/20 09/13/20 Range/Units 10:49 17:11 20:17 WBC (4.23-9.07) K/mm3 RBC (4.63-6.08) M/mm3 Hgb (13.7-17.5) gm/dl Hct (40.1-51.0) % MCV (79.0-92.2) fl MCH (25.7-32.2) pg MCHC (32.2-35.5) g/dl RDW Std Deviation (35.1-43.9) fL Plt Count (163-337) K/mm3 MPV (9.4-12.3) fl Neut % (Auto) (34.0-67.9) % Lymph % (Auto) (21.8-53.1) % [place] % (Auto) (5.3-12.2) % Eos % (Auto) (0.8-7.0) Baso % (Auto) (0.1-1.2) % Neut # (Auto) (1.78-5.38) K/mm3 Lymph # (Auto) (1.32-3.57) K/mm3 [place] # (Auto) (0.30-0.82) K/mm3 Eos # (Auto) (0.04-0.54) K/mm3 Baso # (Auto) (0.01-0.08) K/mm3 Sodium (136-145) mEq/L Potassium (3.5-5.1) mEq/L Chloride (98-107) mEq/L Carbon Dioxide (21-32) mEq/L Anion Gap (5-15) BUN (7-18) mg/dL Creatinine (0.7-1.3) mg/dL Est Cr Clr Drug Dosing mL/min Estimated GFR (MDRD) (>60) mL/min BUN/Creatinine Ratio (14-18) Glucose (83-115) mg/dL POC Glucose 133 H 169 H 210 H (83-110) mg/dL Calcium (8.5-10.1) mg/dL Magnesium (1.8-2.4) mg/dl 09/14/20 09/14/20 09/14/20 Range/Units 04:31 04:31 06:24 WBC 7.97 (4.23-9.07) K/mm3 RBC 3.73 L (4.63-6.08) M/mm3 Hgb 11.2 L (13.7-17.5) gm/dl Hct 35.6 L (40.1-51.0) % MCV 95.4 H (79.0-92.2) fl MCH 30.0 (25.7-32.2) pg MCHC 31.5 L (32.2-35.5) g/dl RDW Std Deviation 47.6 H (35.1-43.9) fL Plt Count 201 (163-337) K/mm3 MPV 10.7 (9.4-12.3) fl Neut % (Auto) 81.3 H (34.0-67.9) % Lymph % (Auto) 10.2 L (21.8-53.1) % [place] % (Auto) 8.4 (5.3-12.2) % Eos % (Auto) 0 L (0.8-7.0) Baso % (Auto) 0.0 L (0.1-1.2) % Neut # (Auto) 6.48 H (1.78-5.38) K/mm3 Lymph # (Auto) 0.81 L (1.32-3.57) K/mm3 [place] # (Auto) 0.67 (0.30-0.82) K/mm3 Eos # (Auto) 0.00 L (0.04-0.54) K/mm3 Baso # (Auto) 0.00 L (0.01-0.08) K/mm3 Sodium 145 (136-145) mEq/L Potassium 3.0 L (3.5-5.1) mEq/L Chloride 105 (98-107) mEq/L Carbon Dioxide 28 (21-32) mEq/L Anion Gap 15.0 (5-15) BUN 28 H (7-18) mg/dL Creatinine 1.5 H (0.7-1.3) mg/dL Est Cr Clr Drug Dosing 32.41 mL/min Estimated GFR (MDRD) 45 (>60) mL/min BUN/Creatinine Ratio 18.7 H (14-18) Glucose 112 (83-115) mg/dL POC Glucose 126 H (83-110) mg/dL Calcium 9.0 (8.5-10.1) mg/dL Magnesium 2.0 (1.8-2.4) mg/dl NACHO Results - Last 24 hrs: Microbiology 09/12/20 09:35 Aerobic Blood Culture - Preliminary Blood - Venous NO GROWTH AFTER 2 DAYS Anaerobic Blood Culture - Preliminary NO GROWTH AFTER 2 DAYS 09/12/20 09:45 Aerobic Blood Culture - Preliminary Blood - Venous - Lab Draw NO GROWTH AFTER 2 DAYS Anaerobic Blood Culture - Preliminary NO GROWTH AFTER 2 DAYS 09/12/20 10:20 Urine Culture - Final Urine, Clean Catch Escherichia Coli Med Orders - Current: Current Medications Discontinued Medications Acetaminophen (Tylenol) 650 mg PO Q4H PRN PRN Reason: Pain (Mild 1-3)/fever Allopurinol (Zyloprim) 200 mg PO DAILY [facility] Last Admin: 09/14/20 08:22 Dose: 200 mg Documented by: Apixaban (Eliquis) 2.5 mg PO BID [facility] Last Admin: 09/12/20 20:38 Dose: 2.5 mg Documented by: Apixaban (Eliquis) 5 mg PO BID [facility] Last Admin: 09/14/20 08:17 Dose: 5 mg Documented by: Aspirin (Aspirin) 81 mg PO DAILY [facility] Last Admin: 09/14/20 08:22 Dose: 81 mg Documented by: Bisacodyl (Dulcolax) 10 mg RECTAL DAILY PRN PRN Reason: Constipation Cephalexin (Keflex) 500 mg PO TID [facility] Last Admin: 09/14/20 08:21 Dose: 500 mg Documented by: Donepezil HCl (Aricept) 10 mg PO DAILY [facility] Last Admin: 09/14/20 08:22 Dose: 10 mg Documented by: Enalapril Maleate (Vasotec) 5 mg PO DAILY [facility] Last Admin: 09/14/20 08:17 Dose: 5 mg Documented by: Famotidine (Pepcid) 20 mg PO DAILY [facility] Last Admin: 09/14/20 08:21 Dose: 20 mg Documented by: Furosemide (Lasix) 40 mg PO DAILY [facility] Last Admin: 09/14/20 08:17 Dose: 40 mg Documented by: Sodium Chloride (Normal Saline) 500 mls @ 500 mls/hr IV .BOLUS ONE Stop: 09/12/20 09:56 Last Admin: 09/12/20 09:21 Dose: 500 mls/hr Documented by: Ceftriaxone Sodium 2 gm/ (Sodium Chloride) 100 mls @ 200 mls/hr IV ONETIME ONE Stop: 09/12/20 11:08 Last Admin: 09/12/20 11:17 Dose: 200 mls/hr Documented by: Piperacillin Sod/Tazobactam (Sod 4.5 gm/ Sodium Chloride) 100 mls @ 200 mls/hr IV ONETIME ONE Stop: 09/12/20 12:59 Last Admin: 09/12/20 12:55 Dose: 200 mls/hr Documented by: Piperacillin Sod/Tazobactam (Sod 4.5 gm/ Sodium Chloride) 100 mls @ 25 mls/hr IV Q8H [facility] Last Admin: 09/14/20 04:42 Dose: 25 mls/hr Documented by: Lactated Ringer's (Ringers, Lactated) 1,000 mls @ 75 mls/hr IV ASDIRECTED [facility] Stop: 09/13/20 01:19 Last Admin: 09/12/20 12:55 Dose: 75 mls/hr Documented by: Insulin Glargine (Lantus) 10 unit SUBCUT DAILY [facility] Last Admin: 09/14/20 08:15 Dose: 10 units Documented by: Insulin Human Lispro (Humalog) 0 unit SUBCUT QIDACANDBED [facility]; Protocol Last Admin: 09/14/20 07:45 Dose: Not Given Documented by: Isosorbide Mononitrate (Imdur) 30 mg PO DAILY [facility] Last Admin: 09/14/20 08:23 Dose: 30 mg Documented by: Metoprolol Tartrate (Lopressor) 37.5 mg PO BID [facility] Last Admin: 09/14/20 08:17 Dose: 37.5 mg Documented by: Potassium Chloride (Klor-Con M20) 40 meq PO BID [facility] Stop: 09/14/20 21:01 Last Admin: 09/14/20 08:22 Dose: 40 meq Documented by: Senna/Docusate Sodium (Senna Plus) 1 tab PO DAILY PRN PRN Reason: Constipation Sertraline HCl (Zoloft) 50 mg PO DAILY [facility] Last Admin: 09/14/20 08:22 Dose: 50 mg Documented by: Sodium Chloride (Saline Flush) 10 ml FLUSH ASDIRECTED PRN PRN Reason: Keep Vein Open Last Admin: 09/12/20 08:54 Dose: 10 ml Documented by:
[2020-09-14] MEDS: Insulin Glarg,Human.Rec.Analog 100 Unit/ML SUBCUT SCH (08:15)
[2020-09-14] MEDS: Apixaban 5 MG Tab PO SCH (08:17)
[2020-09-14] MEDS: Metoprolol Tartrate 25 MG Tab PO SCH (08:17)
[2020-09-14] MEDS: Enalapril 5 MG Tab PO SCH (08:17)
[2020-09-14] MEDS: Furosemide 40 MG Tab PO SCH (08:17)
[2020-09-14] MEDS: Famotidine 20 MG Tab PO SCH (08:21)
[2020-09-14 08:22] VITALS: BP 110/93; PULSE 75
[2020-09-14] MEDS: Donepezil 10 MG Tab PO SCH (08:22)
[2020-09-14] MEDS: Allopurinol 100 MG Tab PO SCH (08:22)
[2020-09-14] MEDS: Sertraline 50 MG Tab PO SCH (08:22)
[2020-09-14] MEDS: Aspirin 81 MG Tab.Chew PO SCH (08:22)
[2020-09-14] MEDS: Isosorbide Mononitrate 30 MG Tab.ER PO SCH (08:23)
[2020-09-14] MEDS ORDERED: Potassium Chloride 20 MEQ Tab.ER PO SCH (09:00)
[2020-09-14] MEDS ORDERED: Cephalexin 500 MG Cap PO SCH (09:00)
== END 2020-09-14 10:02 | DRG 872 ==
LOC: JD.ED 08:32 → JD.MS 11:24
PROVIDERS: ADMIT Internal Medicine; ATTEND Internal Medicine
DX: A41.9 Sepsis, unspecified organism (principal); I69.954 Hemiplegia and hemiparesis following unspecified cerebrovascular disease affecting left non-dominant side; N30.01 Acute cystitis with hematuria; R32 Unspecified urinary incontinence; E86.0 Dehydration; R07.89 Other chest pain; J30.9 Allergic rhinitis, unspecified; E78.5 Hyperlipidemia, unspecified; N18.32 Chronic kidney disease, stage 3b; E11.22 Type 2 diabetes mellitus with diabetic chronic kidney disease; R13.10 Dysphagia, unspecified; E88.09 Other disorders of plasma-protein metabolism, not elsewhere classified; I48.91 Unspecified atrial fibrillation; E78.00 Pure hypercholesterolemia, unspecified; I25.10 Atherosclerotic heart disease of native coronary artery without angina pectoris; M1A.9XX0 Chronic gout, unspecified, without tophus (tophi); R79.89 Other specified abnormal findings of blood chemistry; I10 Essential (primary) hypertension; I25.2 Old myocardial infarction; Z87.898 Personal history of other specified conditions; K21.9 Gastro-esophageal reflux disease without esophagitis; F32.9 Major depressive disorder, single episode, unspecified; G40.909 Epilepsy, unspecified, not intractable, without status epilepticus; F03.90 Unspecified dementia, unspecified severity, without behavioral disturbance, psychotic disturbance, mood disturbance, and anxiety; I11.0 Hypertensive heart disease with heart failure; I69.354 Hemiplegia and hemiparesis following cerebral infarction affecting left non-dominant side; E11.9 Type 2 diabetes mellitus without complications; G47.00 Insomnia, unspecified; Z79.01 Long term (current) use of anticoagulants; Z79.82 Long term (current) use of aspirin; Z79.4 Long term (current) use of insulin; Z79.899 Other long term (current) drug therapy; Z20.822 Contact with and (suspected) exposure to COVID-19
CPT/HCPCS: 36415; 71045; 80053; 81001; 82150; 83605; 83690; 83735; 83880; 84484; 85025; 86140; 87040 ×2; 87086; 87088; 87186; 93005; 96365; 99285; J0696; J7030; U0002; 80048; 82553; 82962; 87641; 99223; 99233; 99239; A9270-GY; J1815-GY; J2543; J7120

== ENCOUNTER 2021-06-17 14:44 | Inpatient (IN) | payer MEDICARE, MEDICAID ==
[2021-06-17] MEDS: Diltiazem 50 MG/10 ML SDV IVPUSH ONE ×2 (15:12→15:50)
--- NOTE | 2021-06-17 15:12 | EDM.PDOC ---
ED HPI GENERAL MEDICAL PROBLEM - General Chief Complaint: Cardiovascular Problem Stated Complaint: [facility] Time Seen by Provider: 06/17/21 14:50 Source of Information: Reports: Patient, EMS, RN Notes Reviewed - History of Present Illness INITIAL COMMENTS - FREE TEXT/NARRATIVE: 85 yr old male transferred here for [facility] for eval and treatment of tachycardia with known hx of a fib. He has hx dementia, prior stroke, unable to give any meaningful hx on arrival to ED. He is on metropolol 50 bid, eliquis in addition to other listed meds. Knee Pain Score (Numeric/FACES): 6 - Related Data Allergies Allergy/AdvReac Type Severity Reaction Status Date / Time No Known Allergies Allergy Verified 06/17/21 14:59 Home Meds: Home Meds Insulin Detemir [Levemir Flexpen] 10 unit SQ DAILY 06/05/15 [History] Acetaminophen [Tylenol] 650 mg PO QID PRN 07/11/15 [History] Enalapril Maleate 5 mg PO DAILY 07/11/15 [History] Metoprolol Tartrate [Lopressor] 50 mg PO BID 07/11/15 [History] Sertraline [Zoloft] 50 mg PO DAILY 07/11/15 [History] allopurinoL [Zyloprim] 200 mg PO DAILY 07/11/15 [History] Bisacodyl [Dulcolax] 10 mg RECTAL DAILY PRN 07/16/16 [History] Crush Medications 1 dose PO ASDIRECTED 07/16/16 [History] Docusate Sodium/Sennosides [Senna Plus] 2 tab PO BID 07/16/16 [History] Menthol/Camphor [Sarna Anti-Itch] 1 applic TP BEDTIME 07/16/16 [History] Mckay Thick Liquids 1 dose PO ASDIRECTED 07/16/16 [History] Nitroglycerin [Nitrostat] 0.4 mg SL Q5M PRN 07/16/16 [History] Triamcinolone Acetonide [Triamcinolone Acetonide 0.1% Crm] 1 applic TOP BID PRN 07/16/16 [History] atorvaSTATin [Lipitor] 10 mg PO DAILY 07/16/16 [History] Apixaban [Eliquis] 5 mg PO BID 02/09/20 [History] Cetirizine [ZyrTEC] 5 mg PO DAILY 02/09/20 [History] Donepezil [Aricept] 10 mg PO DAILY 09/06/20 [History] Isosorbide Mononitrate [Imdur] 30 mg PO DAILY 09/06/20 [History] Aspirin 81 mg PO DAILY 09/12/20 [History] Cranberry 425 mg PO BID 09/12/20 [History] Furosemide [Lasix] 40 mg PO DAILY 09/12/20 [History] Potassium Chloride 40 meq PO ONETIME #2 tablet.er 09/14/20 [Rx] cephALEXin [Keflex] 500 mg PO TID #14 cap 09/14/20 [Rx] Amoxicillin/Clavulanate K [Augmentin 875-125 MG] 1 tab PO DAILY 06/17/21 [History] Ascorbic Acid [Vitamin C] 500 mg PO DAILY 06/17/21 [History] Carbamide Peroxide [Debrox 6.5% Otic Soln] 3 drop EARBOTH ASDIRECTED 06/17/21 [History] Hydrocodone/Acetaminophen [HYDROcodone-Acetaminophen 5-325 MG] 1 tab PO BID 06/17/21 [History] Nitroglycerin [Nitrostat] 0.4 mg SL TID PRN 06/17/21 [History] Sertraline [Zoloft] 50 mg PO DAILY 06/17/21 [History] predniSONE [Prednisone] 10 mg PO DAILY MDD 7 06/17/21 [History] Past Medical History HEENT History: Reports: Allergic Rhinitis, Other (See Below) Other HEENT History: dry eyes; dysphasia, is on nectar thickened liquids with crushed meds/pureed foods Cardiovascular History: Reports: Afib, CAD, Heart Failure, High Cholesterol, Hypertension, [place] Respiratory History: Reports: Other (See Below) Other Respiratory History: cough Gastrointestinal History: Reports: Chronic Constipation, Chronic Diarrhea, GERD, Other (See Below) Other Gastrointestinal History: dysphagia Genitourinary History: Reports: Urinary Incontinence, UTI, Recurrent Musculoskeletal History: Reports: Back Pain, Chronic, Gout, Other (See Below) Other Musculoskeletal History: chronic muscle weakness; hemiplegia and hemiparesis left side Neurological History: Reports: CVA, Seizure, Other (See Below) Other Neuro History: 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 Psychiatric History: Reports: Dementia, Depression, Other (See Below) Other Psychiatric History: insomnia Endocrine/Metabolic History: Reports: Diabetes, Type II, Hypokalemia Hematologic History: Reports: Other (See Below) Other Hematologic History: sepsis - Infectious Disease History Infectious Disease History: Reports: Novel Coronavirus - Past Surgical History Cardiovascular Surgical History: Reports: None Social & Family History - Family History Family Medical History: No Pertinent Family History - Tobacco Use Tobacco Use Status *Q: Unknown Ever Used Tobacco Second Hand Smoke Exposure: No - Caffeine Use Caffeine Use: Reports: None - Recreational Drug Use Recreational Drug Use: No - Living Situation & Occupation Living situation: Reports: Extended Care Facility ([facility]) Occupation: Retired ED ROS GENERAL - Review of Systems Review Of Systems: See Below Constitutional: Denies: Fever HEENT: Reports: No Symptoms Respiratory: Denies: Shortness of Breath, Cough Cardiovascular: Denies: Chest Pain GI/Abdominal: Denies: Abdominal Pain, Vomiting Musculoskeletal: Reports: No Symptoms Neurological: Reports: No Symptoms ED EXAM, GENERAL - Physical Exam Exam: See Below General Appearance: Alert, No Apparent Distress Head: Atraumatic Neck: Supple Respiratory/Chest: No Respiratory Distress, Lungs Clear, Normal Breath Sounds Cardiovascular: Tachycardia Extremities: No: Pedal Edema, Leg Pain Neurological: Alert, Confused Skin Exam: Warm, Dry #1 Interpretation EKG Date: 06/17/21 Rhythm: A-Fib Rate (Beats/Min): 135 [place]: Normal P-Wave: Absent QRS: RBBB ST-T: Other (mild st depression V4-V6) Course - Vital Signs Last Recorded V/S: Last Vital Signs Temp 96.5 F L 06/17/21 14:50 Pulse 134 H 06/17/21 14:50 Resp 14 06/17/21 14:50 BP 121/78 06/17/21 14:50 Pulse Ox 94 L 06/17/21 14:50 - Orders/Labs/Meds Orders: Active Orders 24 hr Category Date Time Status CORONAVIRUS COVID-19 CORDELL [MOLEC] Stat Lab 06/17/21 16:46 Ordered TROPONIN I [CHEM] Stat Lab 06/17/21 16:46 Ordered Diltiazem [Cardizem] 100 mg Med 06/17/21 16:45 Active Sodium Chloride 0.9% [Normal Saline AdvBag] 100 ml IV TITRATE Medication Orders Diltiazem HCl 100 mg/ Sodium (Chloride) 100 mls @ 5 mls/hr IV TITRATE ALENA; Protocol Labs: Laboratory Tests 06/17/21 06/17/21 Range/Units 14:53 14:53 WBC 12.64 H (4.23-9.07) K/mm3 RBC 3.53 L (4.63-6.08) M/mm3 Hgb 10.6 L (13.7-17.5) gm/dl Hct 34.5 L (40.1-51.0) % MCV 97.7 H (79.0-92.2) fl MCH 30.0 (25.7-32.2) pg MCHC 30.7 L (32.2-35.5) g/dl RDW Std Deviation 51.0 H (35.1-43.9) fL Plt Count 353 H D (163-337) K/mm3 MPV 10.4 (9.4-12.3) fl Neut % (Auto) 90.9 H (34.0-67.9) % Lymph % (Auto) 2.8 L (21.8-53.1) % [place] % (Auto) 5.4 (5.3-12.2) % Eos % (Auto) 0 L (0.8-7.0) Baso % (Auto) 0.0 L (0.1-1.2) % Neut # (Auto) 11.49 H (1.78-5.38) K/mm3 Lymph # (Auto) 0.36 L (1.32-3.57) K/mm3 [place] # (Auto) 0.68 (0.30-0.82) K/mm3 Eos # (Auto) 0.00 L (0.04-0.54) K/mm3 Baso # (Auto) 0.00 L (0.01-0.08) K/mm3 Manual Slide Review Abnormal smear Sodium 147 H (136-145) mEq/L Potassium 3.8 (3.5-5.1) mEq/L Chloride 108 H (98-107) mEq/L Carbon Dioxide 28 (21-32) mEq/L Anion Gap 14.8 (5-15) BUN 48 H (7-18) mg/dL Creatinine 1.5 H (0.7-1.3) mg/dL Est Cr Clr Drug Dosing TNP Estimated GFR (MDRD) 45 (>60) mL/min BUN/Creatinine Ratio 32.0 H (14-18) Glucose 193 H (70-99) mg/dL Calcium 8.5 (8.5-10.1) mg/dL Total Bilirubin 0.7 (0.2-1.0) mg/dL AST 37 (15-37) U/L ALT 55 (16-63) U/L Alkaline Phosphatase 136 H (46-116) U/L Total Protein 6.3 L (6.4-8.2) g/dl Albumin 2.3 L (3.4-5.0) g/dl Globulin 4.0 gm/dL Albumin/Globulin Ratio 0.6 L (1-2) Meds: Medications Generic Name Dose Route Start Last Admin Trade Name Freq PRN Reason Stop Dose Admin Diltiazem HCl 100 mg/ Sodium 100 mls @ 5 mls/hr 06/17/21 16:45 Chloride IV TITRATE ALENA Protocol 5 MG/HR Discontinued Medications Generic Name Dose Route Start Last Admin Trade Name Freq PRN Reason Stop Dose Admin Diltiazem HCl 20 mg 06/17/21 15:10 06/17/21 15:50 Diltiazem 50 Mg/10 Ml Sdv IVPUSH 06/17/21 15:11 10 mg ONETIME ONE Administration Diltiazem HCl 10 mg 06/17/21 16:13 06/17/21 16:27 Diltiazem 50 Mg/10 Ml Sdv IVPUSH 06/17/21 16:14 10 mg ONETIME ONE Administration - Re-Assessments/Exams Free Text/Narrative Re-Assessment/Exam: 06/17/21 16:44 Have given diltiazem 10 mg IV times 3. Rate has come down from 140's to 110 to 120'. CXR shows mild cardiolmegally but no major failure. Other labs are relatively OK. Departure - Departure Time of Disposition: 16:45 Disposition: Admitted As Inpatient 67 Condition: Fair Clinical Impression: Atrial fibrillation with RVR Referrals: Pepe Isbell MD [Primary Care Provider] - Forms: ED Department Discharge Sepsis Event Note (ED) - Evaluation Sepsis Screening Result: No Definite Risk - Focused Exam Vital Signs: Vital Signs Temp Pulse Resp BP Pulse Ox 06/17/21 14:50 96.5 F L 134 H 14 121/78 94 L ED Communication - Discussed Case With (1) Discussed Case With (1): Admitting Provider (Dr Quintero, decision to admit at about 16:45.) - My Orders Last 24 Hours: My Active Orders 06/17/21 16:45 Diltiazem [Cardizem] 100 mg Sodium Chloride 0.9% [Normal Saline AdvBag] 100 ml IV TITRATE 06/17/21 16:46 CORONAVIRUS COVID-19 CORDELL [MOLEC] Stat TROPONIN I [CHEM] Stat - Assessment/Plan Last 24 Hours: My Active Orders 06/17/21 16:45 Diltiazem [Cardizem] 100 mg Sodium Chloride 0.9% [Normal Saline AdvBag] 100 ml IV TITRATE 06/17/21 16:46 CORONAVIRUS COVID-19 CORDELL [MOLEC] Stat TROPONIN I [CHEM] Stat
[2021-06-17] MEDS ORDERED: Diltiazem 50 MG/10 ML SDV IVPUSH ONE (16:13)
--- NOTE | 2021-06-17 16:19 | CR ---
Chest: Portable view of the chest was obtained. Comparison: Prior chest x-ray on 09/12/20. Heart is enlarged. Tortuous thoracic aorta is seen. Lungs are clear with no acute parenchymal change. Bony structures are osteopenic. Impression: 1. Mild cardiomegaly with tortuous thoracic aorta. 2. Nothing acute is otherwise seen on frontal chest x-ray. Diagnostic code #2
[2021-06-17] MEDS: Diltiazem 100 MG in Sodium Chloride 0.9% 100 ML IV SCH ×2 (16:51→23:25)
[2021-06-17] MEDS ORDERED: LORazepam 0.5 MG Tab PO ONE ×2 (18:52→18:54)
[2021-06-17] MEDS ORDERED: LORazepam 2 MG/ML SDV IVPUSH ONE (19:11)
[2021-06-17] MEDS ORDERED: Nitroglycerin 0.4 MG Tab.SL SL PRN (19:11)
[2021-06-17] MEDS ORDERED: Bisacodyl 10 MG Supp RECTAL PRN (19:11)
[2021-06-17] MEDS ORDERED: Non-Formulary Medication 1 Each (Potassium Chloride [Potassium Chloride] 20 MEQ Tablet.Er) PO SCH (19:15)
[2021-06-17] MEDS ORDERED: [UNRECOGNIZED DRUG - REMARK] PO SCH (19:15)
[2021-06-17] MEDS ORDERED: [UNRECOGNIZED DRUG - OTHER] PO SCH (19:15)
[2021-06-17] MEDS ORDERED: Acetaminophen/HYDROcodone 325-5 MG Tab PO PRN (19:40)
[2021-06-17] MEDS ORDERED: Acetaminophen 325 MG Tab PO PRN (19:40)
--- NOTE | 2021-06-17 19:45 | PCM.HP.2 ---
H&P History of Present Illness - General Date of Service: 06/17/21 Admit Problem/Dx: Admission Diagnosis/Problem Admission Diagnosis/Problem Atrial fibrillation - History of Present Illness Initial Comments - Free Text/Narative: 85-year-old male with severe dementia presents to the emergency department at the request of his primary care provider secondary to elevated heart rate. Patient is a resident of [facility]. He was being seen for continued left knee pain and tachycardia. Patient was treated for left knee pain starting June 10, 2021. He was placed on prednisone 20 mg a day for 7 d ays and then it was to decrease to 10 mg/day starting on June 17. He was also started on Augmentin 1 tab twice daily starting June 14. Patient has a history of atrial fibrillation with episodes of RVR. Apparently his rate was noted to be elevated and an EKG done at his primary care providers office on the day of admission showed atrial fibrillation with a ventricular rate between 101 and 161. Patient denies any chest pain, shortness of breath, orthopnea. He does complain of left knee pain. In the emergency department patient was noted to have a heart rate in the 130s to 140s and started on a Cardizem drip after having Cardizem 10 mg boluses x3 without benefit. Of note his troponin was slightly elevated at 0.425. He is on metoprolol tartrate 50 mg twice daily, enalapril 5 mg daily, and Eliquis. Patient also has a history of gout and is on allopurinol 200 mg daily. Please see his medication list for full details of his medications. In the emergency department his EKG was ventricular rate of 76-156 with right bundle branch block. Knee Pain Score (Numeric/FACES): 6 - Related Data Allergies/Adverse Reactions: Allergies Allergy/AdvReac Type Severity Reaction Status Date / Time No Known Allergies Allergy Verified 06/17/21 14:59 Home Medications: Home Meds Insulin Detemir [Levemir Flexpen] 10 unit SQ DAILY 06/05/15 [History] Acetaminophen [Tylenol] 650 mg PO QID PRN 07/11/15 [History] Enalapril Maleate 5 mg PO DAILY 07/11/15 [History] Metoprolol Tartrate [Lopressor] 50 mg PO BID 07/11/15 [History] Sertraline [Zoloft] 50 mg PO DAILY 07/11/15 [History] allopurinoL [Zyloprim] 200 mg PO DAILY 07/11/15 [History] Bisacodyl [Dulcolax] 10 mg RECTAL DAILY PRN 07/16/16 [History] Crush Medications 1 dose PO ASDIRECTED 07/16/16 [History] Docusate Sodium/Sennosides [Senna Plus] 2 tab PO BID 07/16/16 [History] Menthol/Camphor [Sarna Anti-Itch] 1 applic TP BEDTIME 07/16/16 [History] Juliette Thick Liquids 1 dose PO ASDIRECTED 07/16/16 [History] Nitroglycerin [Nitrostat] 0.4 mg SL Q5M PRN 07/16/16 [History] Triamcinolone Acetonide [Triamcinolone Acetonide 0.1% Crm] 1 applic TOP BID PRN 07/16/16 [History] atorvaSTATin [Lipitor] 10 mg PO DAILY 07/16/16 [History] Apixaban [Eliquis] 5 mg PO BID 02/09/20 [History] Cetirizine [ZyrTEC] 5 mg PO DAILY 02/09/20 [History] Donepezil [Aricept] 10 mg PO DAILY 09/06/20 [History] Isosorbide Mononitrate [Imdur] 30 mg PO DAILY 09/06/20 [History] Aspirin 81 mg PO DAILY 09/12/20 [History] Cranberry 425 mg PO BID 09/12/20 [History] Furosemide [Lasix] 40 mg PO DAILY 09/12/20 [History] Potassium Chloride 40 meq PO ONETIME #2 tablet.er 09/14/20 [Rx] cephALEXin [Keflex] 500 mg PO TID #14 cap 09/14/20 [Rx] Amoxicillin/Clavulanate K [Augmentin 875-125 MG] 1 tab PO DAILY 06/17/21 [History] Ascorbic Acid [Vitamin C] 500 mg PO DAILY 06/17/21 [History] Carbamide Peroxide [Debrox 6.5% Otic Soln] 3 drop EARBOTH ASDIRECTED 06/17/21 [History] Hydrocodone/Acetaminophen [HYDROcodone-Acetaminophen 5-325 MG] 1 tab PO BID 06/17/21 [History] Nitroglycerin [Nitrostat] 0.4 mg SL TID PRN 06/17/21 [History] Sertraline [Zoloft] 50 mg PO DAILY 06/17/21 [History] predniSONE [Prednisone] 10 mg PO DAILY MDD 7 06/17/21 [History] Past Medical History HEENT History: Reports: Allergic Rhinitis, Other (See Below) Other HEENT History: dry eyes; dysphasia, is on nectar thickened liquids with crushed meds/pureed foods Cardiovascular History: Reports: Afib, CAD, Heart Failure, High Cholesterol, Hypertension, MN Respiratory History: Reports: Other (See Below) Other Respiratory History: cough Gastrointestinal History: Reports: Chronic Constipation, Chronic Diarrhea, GERD, Other (See Below) Other Gastrointestinal History: dysphagia Genitourinary History: Reports: Urinary Incontinence, UTI, Recurrent Musculoskeletal History: Reports: Back Pain, Chronic, Gout, Other (See Below) Other Musculoskeletal History: chronic muscle weakness; hemiplegia and hemiparesis left side Neurological History: Reports: CVA, Seizure, Other (See Below) Other Neuro History: 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 Psychiatric History: Reports: Dementia, Depression, Other (See Below) Other Psychiatric History: insomnia Endocrine/Metabolic History: Reports: Diabetes, Type II, Hypokalemia Hematologic History: Reports: Other (See Below) Other Hematologic History: sepsis - Infectious Disease History Infectious Disease History: Reports: Novel Coronavirus - Past Surgical History Cardiovascular Surgical History: Reports: None Social & Family History - Family History Family Medical History: No Pertinent Family History - Tobacco Use Tobacco Use Status *Q: Unknown Ever Used Tobacco Second Hand Smoke Exposure: No - Caffeine Use Caffeine Use: Reports: None - Recreational Drug Use Recreational Drug Use: No - Living Situation & Occupation Living situation: Reports: Extended Care Facility ([facility]) Occupation: Retired H&P Review of Systems - Review of Systems: Review Of Systems: Unable To Obtain (Secondary to severe dementia) Reason Not Obtained: Secondary to severe dementia Exam - Exam Exam: See Below - Vital Signs Vital Signs: Last Vital Signs Temp 96.5 F L 06/17/21 14:50 Pulse 102 H 06/17/21 18:45 Resp 16 06/17/21 18:45 BP 117/80 06/17/21 18:45 Pulse Ox 98 06/17/21 18:45 - Exam Quality Assessment: No: Supplemental Oxygen General: Alert. No: Oriented HEENT: Conjunctiva Clear, Hearing Intact, Mucosa Moist & [place] Neck: Supple, Trachea Midline, 2 Lungs: Normal Respiratory Effort, Crackles (Bibasilar) Cardiovascular: Irregular Rhythm (Irregular rate and rhythm), Tachycardia GI/Abdominal Exam: Normal Bowel Sounds, Soft, Non-Tender, No Organomegaly, No Distention, No Abnormal Bruit, No Mass Back Exam: Normal Inspection Extremities: Normal Capillary Refill, Pedal Edema, Joint Swelling (Effusion of the left knee without warmth or redness. Significantly tender to touch.) Skin: Warm, Dry, Intact Neuro Extensive - Mental Status: Alert Neuro Extensive - Motor, Sensory, Reflexes: CN II-XII Intact Psychiatric: Alert - Patient Data Lab Results Last 24 hrs: Laboratory Results - last 24 hr 06/17/21 06/17/21 06/17/21 Range/Units 14:53 14:53 15:26 WBC 12.64 H (4.23-9.07) K/mm3 RBC 3.53 L (4.63-6.08) M/mm3 Hgb 10.6 L (13.7-17.5) gm/dl Hct 34.5 L (40.1-51.0) % MCV 97.7 H (79.0-92.2) fl MCH 30.0 (25.7-32.2) pg MCHC 30.7 L (32.2-35.5) g/dl RDW Std Deviation 51.0 H (35.1-43.9) fL Plt Count 353 H D (163-337) K/mm3 MPV 10.4 (9.4-12.3) fl Neut % (Auto) 90.9 H (34.0-67.9) % Lymph % (Auto) 2.8 L (21.8-53.1) % Hardee % (Auto) 5.4 (5.3-12.2) % Eos % (Auto) 0 L (0.8-7.0) Baso % (Auto) 0.0 L (0.1-1.2) % Neut # (Auto) 11.49 H (1.78-5.38) K/mm3 Lymph # (Auto) 0.36 L (1.32-3.57) K/mm3 Hardee # (Auto) 0.68 (0.30-0.82) K/mm3 Eos # (Auto) 0.00 L (0.04-0.54) K/mm3 Baso # (Auto) 0.00 L (0.01-0.08) K/mm3 Manual Slide Review Abnormal smear Sodium 147 H (136-145) mEq/L Potassium 3.8 (3.5-5.1) mEq/L Chloride 108 H (98-107) mEq/L Carbon Dioxide 28 (21-32) mEq/L Anion Gap 14.8 (5-15) BUN 48 H (7-18) mg/dL Creatinine 1.5 H (0.7-1.3) mg/dL Est Cr Clr Drug Dosing TNP Estimated GFR (MDRD) 45 (>60) mL/min BUN/Creatinine Ratio 32.0 H (14-18) Glucose 193 H (70-99) mg/dL Calcium 8.5 (8.5-10.1) mg/dL Total Bilirubin 0.7 (0.2-1.0) mg/dL AST 37 (15-37) U/L ALT 55 (16-63) U/L Alkaline Phosphatase 136 H (46-116) U/L Troponin I 0.425 H* (0.00-0.056) ng/mL Total Protein 6.3 L (6.4-8.2) g/dl Albumin 2.3 L (3.4-5.0) g/dl Globulin 4.0 gm/dL Albumin/Globulin Ratio 0.6 L (1-2) SARS-CoV-2 RNA (CORDELL) (NEGATIVE) 06/17/21 Range/Units 16:50 WBC (4.23-9.07) K/mm3 RBC (4.63-6.08) M/mm3 Hgb (13.7-17.5) gm/dl Hct (40.1-51.0) % MCV (79.0-92.2) fl MCH (25.7-32.2) pg MCHC (32.2-35.5) g/dl RDW Std Deviation (35.1-43.9) fL Plt Count (163-337) K/mm3 MPV (9.4-12.3) fl Neut % (Auto) (34.0-67.9) % Lymph % (Auto) (21.8-53.1) % Hardee % (Auto) (5.3-12.2) % Eos % (Auto) (0.8-7.0) Baso % (Auto) (0.1-1.2) % Neut # (Auto) (1.78-5.38) K/mm3 Lymph # (Auto) (1.32-3.57) K/mm3 Hardee # (Auto) (0.30-0.82) K/mm3 Eos # (Auto) (0.04-0.54) K/mm3 Baso # (Auto) (0.01-0.08) K/mm3 Manual Slide Review Sodium (136-145) mEq/L Potassium (3.5-5.1) mEq/L Chloride (98-107) mEq/L Carbon Dioxide (21-32) mEq/L Anion Gap (5-15) BUN (7-18) mg/dL Creatinine (0.7-1.3) mg/dL Est Cr Clr Drug Dosing Estimated GFR (MDRD) (>60) mL/min BUN/Creatinine Ratio (14-18) Glucose (70-99) mg/dL Calcium (8.5-10.1) mg/dL Total Bilirubin (0.2-1.0) mg/dL AST (15-37) U/L ALT (16-63) U/L Alkaline Phosphatase (46-116) U/L Troponin I (0.00-0.056) ng/mL Total Protein (6.4-8.2) g/dl Albumin (3.4-5.0) g/dl Globulin gm/dL Albumin/Globulin Ratio (1-2) SARS-CoV-2 RNA (CORDELL) Negative (NEGATIVE) Result Diagrams: 06/18/21 05:31 06/18/21 05:31 Sepsis Event Note - Evaluation Sepsis Screening Result: No Definite Risk - Focused Exam Vital Signs: Vital Signs Temp Pulse Resp BP Pulse Ox 06/17/21 18:45 102 H 16 117/80 98 06/17/21 17:25 105 H 18 113/86 98 06/17/21 14:50 96.5 F L 134 H 14 121/78 94 L - Problem List (1) Type 2 myocardial infarction due to arrhythmia SNOMED Code(s): 16436391 ICD Code: I49.9 - CARDIAC ARRHYTHMIA, UNSPECIFIED; I21.A1 - MYOCARDIAL INFARCTION TYPE 2 Status: Acute Current Visit: Yes (2) Dementia SNOMED Code(s): 20081939 ICD Code: F03.90 - UNSPECIFIED DEMENTIA WITHOUT BEHAVIORAL DISTURBANCE Status: Acute Current Visit: Yes (3) Atrial fibrillation with RVR SNOMED Code(s): 700798686121800 ICD Code: I48.91 - UNSPECIFIED ATRIAL FIBRILLATION Status: Acute Current Visit: Yes (4) Inflammatory arthritis SNOMED Code(s): 0901214 ICD Code: M19.90 - UNSPECIFIED OSTEOARTHRITIS, UNSPECIFIED SITE Status: Acute Current Visit: No (5) Type II diabetes mellitus SNOMED Code(s): 20433187 ICD Code: E11.9 - TYPE 2 DIABETES MELLITUS WITHOUT COMPLICATIONS Status: Chronic Priority: Medium Current Visit: No Qualifiers: Diabetes mellitus director long term care insulin use: with detention use Diabetes mellitus complication status: with other specified complication Qualified Code(s): E11.69 - Type 2 diabetes mellitus with other specified complication; 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 Problem List Initiated/Reviewed/Updated: Yes Orders Last 24hrs: Active Orders 24 hr Category Date Time Status Admission Status [Patient Status] [ADT] Routine ADT 06/17/21 18:48 Active Blood Glucose Check, Bedside [RC] WITHMEALSANDBED Care 06/17/21 19:44 Ordered Oxygen Therapy [RC] PRN Care 06/17/21 19:40 Ordered Up With Assistance [RC] ASDIRECTED Care 06/17/21 19:40 Ordered VTE/DVT Education [RC] PER UNIT ROUTINE Care 06/17/21 19:40 Ordered Vital Signs [RC] Q4H Care 06/17/21 19:40 Ordered Consistent Carbohydrate Diet [DIET] Diet 06/18/21 Breakfast Ordered C-REACTIVE PROTEIN [CHEM] AM Lab 06/18/21 05:11 Ordered CBC WITH AUTO DIFF [HEME] AM Lab 06/18/21 05:11 Ordered COMPREHENSIVE METABOLIC PN,CMP [CHEM] AM Lab 06/18/21 05:11 Ordered MAGNESIUM [CHEM] AM Lab 06/18/21 05:11 Ordered URIC ACID [CHEM] AM Lab 06/18/21 05:11 Ordered Acetaminophen [TylenoL] Med 06/17/21 19:40 Ordered 650 mg PO Q4H PRN Acetaminophen/HYDROcodone [Glyndon 325-5 MG] Med 06/17/21 19:40 Ordered 1 tab PO Q4H PRN Apixaban [Eliquis] Med 06/17/21 21:00 Active 5 mg PO BID Aspirin Med 06/18/21 09:00 Active 81 mg PO DAILY Crush Medications Med 06/17/21 19:15 Active 1 dose PO ASDIRECTED Diltiazem [Cardizem] 100 mg Med 06/17/21 16:45 Active Sodium Chloride 0.9% [Normal Saline AdvBag] 100 ml IV TITRATE Docusate Sodium/Sennosides [Senna Plus] Med 06/17/21 21:00 Active 2 tab PO BID Donepezil Med 06/18/21 09:00 Active 10 mg PO DAILY Enalapril [Vasotec] Med 06/18/21 09:00 Active 5 mg PO DAILY Furosemide [Lasix] Med 06/18/21 09:00 Active 40 mg PO DAILY Insulin Lispro [HumaLOG] Med 06/17/21 19:44 Ordered See Protocol SUBCUT QIDACANDBED PRN Isosorbide Mononitrate [Imdur] Med 06/18/21 09:00 Active 30 mg PO DAILY Metoprolol Tartrate [Lopressor] Med 06/17/21 21:00 Active 50 mg PO BID Juliette Thick Liquids Med 06/17/21 19:15 Active 1 dose PO ASDIRECTED Nitroglycerin [Nitrostat] Med 06/17/21 19:11 Active 0.4 mg SL Q5M PRN Potassium Chloride [Potassium Chloride] Med 06/17/21 19:15 Active 40 meq PO ONETIME Sertraline [Zoloft] Med 06/18/21 09:00 Active 50 mg PO DAILY allopurinoL [Zyloprim] Med 06/18/21 09:00 Active 200 mg PO DAILY atorvaSTATin [Lipitor] Med 06/18/21 09:00 Active 10 mg PO DAILY bisacodyL [Dulcolax] Med 06/17/21 19:11 Active 10 mg RECTAL DAILY PRN predniSONE Med 06/18/21 07:00 Ordered 20 mg PO WITHBREAKFAST Resuscitation Status Routine Resus Stat 06/17/21 19:40 Ordered Medication Orders Acetaminophen (Acetaminophen 325 Mg Tab) 650 mg PO Q4H PRN PRN Reason: Pain (Mild 1-3)/fever Hydrocodone Bitart/Acetaminophen (Acetaminophen/Hydrocodone 325-5 Mg Tab) 1 tab PO Q4H PRN PRN Reason: Pain (moderate 4-6) Allopurinol (Allopurinol 100 Mg Tab) 200 mg PO DAILY [facility] Apixaban (Apixaban 5 Mg Tab) 5 mg PO BID [facility] Aspirin (Aspirin 81 Mg Tab.Chew) 81 mg PO DAILY [facility] Atorvastatin Calcium (Atorvastatin 20 Mg Tab) 10 mg PO DAILY [facility] Bisacodyl (Bisacodyl 10 Mg Supp) 10 mg RECTAL DAILY PRN PRN Reason: Constipation Enalapril Maleate (Enalapril 5 Mg Tab) 5 mg PO DAILY [facility] Furosemide (Furosemide 40 Mg Tab) 40 mg PO DAILY [facility] Diltiazem HCl 100 mg/ Sodium (Chloride) 100 mls @ 5 mls/hr IV TITRATE [facility]LENA; Protocol Last Titration: 06/17/21 19:35 Dose: 12.5 mg/hr, 12.5 mls/hr Documented by: Titration: 06/17/21 17:55 Dose: 10 mg/hr, 10 mls/hr Documented by: Admin: 06/17/21 16:51 Dose: 5 mg/hr, 5 mls/hr Documented by: CECILE Insulin Human Lispro (Insulin Lispro 100 Unit/Ml 3 Ml Kwikpen) 0 unit SUBCUT QIDACANDBED PRN; Protocol PRN Reason: Hyperglycemia Isosorbide Mononitrate (Isosorbide Mononitrate 30 Mg Tab.Er) 30 mg PO DAILY [facility] Metoprolol Tartrate (Metoprolol Tartrate 50 Mg Tab) 50 mg PO BID [facility] Nitroglycerin (Nitroglycerin 0.4 Mg Tab.Sl) 0.4 mg SL Q5M PRN PRN Reason: Chest Pain Non-Formulary Medication (Crush Medications ) 1 dose PO ASDIRECTED [facility] Non-Formulary Medication (Donepezil) 10 mg PO DAILY [facility] Non-Formulary Medication (Juliette Thick Liquids) 1 dose PO ASDIRECTED [facility] Non-Formulary Medication (Potassium Chloride [Potassium Chloride]) 40 meq PO ONETIME [facility] Prednisone (Prednisone 20 Mg Tab) 20 mg PO WITHBREAKFAST [facility] Senna/Docusate Sodium (Docusate Sodium/Sennosides 50-8.6 Mg Tab) 2 tab PO BID [facility] Sertraline HCl (Sertraline 50 Mg Tab) 50 mg PO DAILY [facility] Assessment/Plan Comment:: 85-year-old male with history of severe dementia, atrial fibrillation with RVR, gout, bilateral knee replacement, coronary artery disease with non-ST elevated MN, diabetes, CVA with left-sided hemiplegia and hemiparesis,, diastolic heart failure hyperlipidemia, hypertension dysphagia presents to the emergency department from his primary care provider secondary to A. fib with RVR. Atrial fibrillation with RVR Type 2 myocardial infarction History of diastolic dysfunction and coronary artery disease * Review of his [facility] chart shows that he recently, 3 days ago, had his metoprolol tartrate increased from 37.5 twice daily to 50 mg twice daily * Heart rate today was in the 140s and he was referred to the emergency department * He failed multiple boluses of Cardizem and was placed on a Cardizem drip in the emergency department * There is some concern of secondary infection and possibly SIRS/sepsis. Patient does have an elevated heart rate with elevated white count. White count could be increased because he was on prednisone for his possible gout. * Troponin is 0.425. This is likely secondary to rate related increase in card iac work. Therefore, patient would not benefit from anticoagulation or cardiac catheterization * Home medications include Eliquis 5 mg twice daily, enalapril 5 mg daily, metoprolol 50 mg twice daily, furosemide 40 mg daily, isosorbide mononitrate 24-hour 30 mg daily Hyponatremia and acute kidney injury * Sodium is 147 and creatinine of 1.5 * Patient appears to have some dehydration * Start one half normal saline 200 mL over the first hour then 100 mL/h for a total of 1 L. * Recheck kidney function and electrolytes in the morning. Severe left knee pain with effusion Report of cellulitis over that joint History of gout * Gout versus septic arthritis versus hemorrhagic effusion * Start Rocephin 2 g IV daily * Blood cultures * Procalcitonin, lactic acid, CRP, uric acid * Follow CBC, CMP, CRP * Consult orthopedics in the morning Severe dementia History of CVA * Likely vascular dementia from history of CVA * On Aricept * Will update family regularly Diabetes mellitus * On Lantus 10 units daily * Unknown hemoglobin A1c VTE prophylaxis with Eliquis CODE STATUS: Full code - Mortality Measure Prognosis:: Poor
[2021-06-17] MEDS ORDERED: predniSONE 20 MG Tab PO ONE (19:57)
[2021-06-17] MEDS ORDERED: cefTRIAXone 2 GM in Sodium Chloride 0.9% 100 ML IV SCH (20:00)
[2021-06-17] MEDS: cefTRIAXone 2 GM in Sodium Chloride 0.9% 100 ML IV SCH (21:30)
[2021-06-17] MEDS ORDERED: Sodium Chloride 0.45% 1,000 ML IV SCH ×2 (21:30→23:45)
[2021-06-17] MEDS: Metoprolol Tartrate 50 MG Tab PO SCH (21:51)
[2021-06-17] MEDS: Apixaban 5 MG Tab PO SCH (21:51)
[2021-06-18] MEDS ORDERED: predniSONE 20 MG Tab PO SCH (07:00)
[2021-06-18] MEDS: Diltiazem 100 MG in Sodium Chloride 0.9% 100 ML IV SCH ×2 (07:19→19:43)
[2021-06-18] MEDS: atorvaSTATin 20 MG Tab PO SCH (08:52)
[2021-06-18] MEDS: Potassium Chloride 20 MEQ Tab.ER PO SCH (08:53)
[2021-06-18] MEDS: Isosorbide Mononitrate 30 MG Tab.ER PO SCH (08:53)
[2021-06-18] MEDS: Enalapril 5 MG Tab PO SCH (08:53)
[2021-06-18] MEDS: Furosemide 40 MG Tab PO SCH (08:53)
[2021-06-18] MEDS: Allopurinol 100 MG Tab PO SCH (08:53)
[2021-06-18] MEDS: Apixaban 5 MG Tab PO SCH ×2 (08:53→20:04)
[2021-06-18] MEDS: Sertraline 50 MG Tab PO SCH (08:53)
[2021-06-18] MEDS: Aspirin 81 MG Tab.EC PO SCH (08:53)
[2021-06-18] MEDS: Donepezil 10 MG Tab PO SCH (08:54)
[2021-06-18] MEDS: Metoprolol Tartrate 50 MG Tab PO SCH ×2 (08:54→20:04)
[2021-06-18] MEDS ORDERED: DONEPEZIL 5 MG PO SCH (09:00)
[2021-06-18] MEDS ORDERED: Aspirin 81 MG Tab.Chew PO SCH (09:00)
[2021-06-18] MEDS ORDERED: Metoprolol Tartrate 50 MG Tab PO ONE (10:00)
--- NOTE | 2021-06-18 11:04 | CR ---
Left knee: AP and crosstable lateral view of the left knee was obtained. Comparison: No prior left knee imaging is available. Knee prosthesis is seen. Components are aligned. Patellar surgery is noted. Vascular calcification is seen. Bony structures are osteopenic. No abnormal lucency is seen around the prosthesis. No discrete fracture or other abnormality is seen. Impression: 1. Knee prosthesis and vascular calcification. 2. Osteopenia. 3. Nothing acute is appreciated on left knee exam. Diagnostic code #2
--- NOTE | 2021-06-18 11:50 | PCM.PN ---
- General Info Date of Service: 06/18/21 Admission Dx/Problem (Free Text): Admission Diagnosis/Problem Admission Diagnosis/Problem Atrial fibrillation Subjective Update: 85-year-old male with severe dementia admitted for atrial fibrillation with RVR, recurrence. Patient continues to complain of left knee pain. Last night he was started on Rocephin in case left knee pain is a partially treated septic joint. Patient complains of being thirsty, otherwise no other complaints. Functional Status: Denies: Pain Controlled - Review of Systems General: Reports: Other (Poor historian secondary to severe dementia) - Patient Data Vitals - Most Recent: Last Vital Signs Temp 97.7 F 06/18/21 07:53 Pulse 98 06/18/21 11:10 Resp 14 06/18/21 10:01 BP 98/80 06/18/21 11:10 Pulse Ox 94 L 06/18/21 10:01 Weight - Most Recent: 174 lb I&O - Last 24 Hours: Intake & Output 06/17/21 06/18/21 06/18/21 22:59 06:59 14:59 Intake Total 1264 Balance 1264 Lab Results Last 24 Hours: Laboratory Results - last 24 hr 06/17/21 06/17/21 06/17/21 Range/Units 14:53 14:53 15:26 WBC 12.64 H (4.23-9.07) K/mm3 RBC 3.53 L (4.63-6.08) M/mm3 Hgb 10.6 L (13.7-17.5) gm/dl Hct 34.5 L (40.1-51.0) % MCV 97.7 H (79.0-92.2) fl MCH 30.0 (25.7-32.2) pg MCHC 30.7 L (32.2-35.5) g/dl RDW Std Deviation 51.0 H (35.1-43.9) fL Plt Count 353 H D (163-337) K/mm3 MPV 10.4 (9.4-12.3) fl Neut % (Auto) 90.9 H (34.0-67.9) % Lymph % (Auto) 2.8 L (21.8-53.1) % [place] % (Auto) 5.4 (5.3-12.2) % Eos % (Auto) 0 L (0.8-7.0) Baso % (Auto) 0.0 L (0.1-1.2) % Neut # (Auto) 11.49 H (1.78-5.38) K/mm3 Lymph # (Auto) 0.36 L (1.32-3.57) K/mm3 [place] # (Auto) 0.68 (0.30-0.82) K/mm3 Eos # (Auto) 0.00 L (0.04-0.54) K/mm3 Baso # (Auto) 0.00 L (0.01-0.08) K/mm3 Manual Slide Review Abnormal smear Sodium 147 H (136-145) mEq/L Potassium 3.8 (3.5-5.1) mEq/L Chloride 108 H (98-107) mEq/L Carbon Dioxide 28 (21-32) mEq/L Anion Gap 14.8 (5-15) BUN 48 H (7-18) mg/dL Creatinine 1.5 H (0.7-1.3) mg/dL Est Cr Clr Drug Dosing TNP Estimated GFR (MDRD) 45 (>60) mL/min BUN/Creatinine Ratio 32.0 H (14-18) Glucose 193 H (70-99) mg/dL POC Glucose (70-99) mg/dL Lactic Acid (0.4-2.0) mmol/L Uric Acid (3.5-7.2) mg/dL Calcium 8.5 (8.5-10.1) mg/dL Magnesium (1.8-2.4) mg/dL Total Bilirubin 0.7 (0.2-1.0) mg/dL AST 37 (15-37) U/L ALT 55 (16-63) U/L Alkaline Phosphatase 136 H (46-116) U/L Troponin I 0.425 H* (0.00-0.056) ng/mL C-Reactive Protein (<1.0) mg/dL Total Protein 6.3 L (6.4-8.2) g/dl Albumin 2.3 L (3.4-5.0) g/dl Globulin 4.0 gm/dL Albumin/Globulin Ratio 0.6 L (1-2) TSH 3rd Generation (0.358-3.74) uIU/mL Urine Color (Yellow) Urine Appearance (Clear) Urine pH (5.0-8.0) Ur Specific [place] (1.005-1.030) Urine Protein (Negative) Urine Glucose (UA) (Negative) Urine Ketones (Negative) Urine Occult Blood (Negative) Urine Nitrite (Negative) Urine Bilirubin (Negative) Urine Urobilinogen (0.2-1.0) Ur Leukocyte Esterase (Negative) Urine RBC (0-5) /hpf Urine WBC (0-5) /hpf Ur Squamous Epith Cells (0-5) /hpf Urine Bacteria (FEW) /hpf Urine Mucus (FEW) /hpf SARS-CoV-2 RNA (CORDELL) (NEGATIVE) 06/17/21 06/17/21 06/17/21 Range/Units 16:50 21:20 21:28 WBC (4.23-9.07) K/mm3 RBC (4.63-6.08) M/mm3 Hgb (13.7-17.5) gm/dl Hct (40.1-51.0) % MCV (79.0-92.2) fl MCH (25.7-32.2) pg MCHC (32.2-35.5) g/dl RDW Std Deviation (35.1-43.9) fL Plt Count (163-337) K/mm3 MPV (9.4-12.3) fl Neut % (Auto) (34.0-67.9) % Lymph % (Auto) (21.8-53.1) % [place] % (Auto) (5.3-12.2) % Eos % (Auto) (0.8-7.0) Baso % (Auto) (0.1-1.2) % Neut # (Auto) (1.78-5.38) K/mm3 Lymph # (Auto) (1.32-3.57) K/mm3 [place] # (Auto) (0.30-0.82) K/mm3 Eos # (Auto) (0.04-0.54) K/mm3 Baso # (Auto) (0.01-0.08) K/mm3 Manual Slide Review Sodium (136-145) mEq/L Potassium (3.5-5.1) mEq/L Chloride (98-107) mEq/L Carbon Dioxide (21-32) mEq/L Anion Gap (5-15) BUN (7-18) mg/dL Creatinine (0.7-1.3) mg/dL Est Cr Clr Drug Dosing Estimated GFR (MDRD) (>60) mL/min BUN/Creatinine Ratio (14-18) Glucose (70-99) mg/dL POC Glucose 147 H (70-99) mg/dL Lactic Acid 1.3 (0.4-2.0) mmol/L Uric Acid (3.5-7.2) mg/dL Calcium (8.5-10.1) mg/dL Magnesium (1.8-2.4) mg/dL Total Bilirubin (0.2-1.0) mg/dL AST (15-37) U/L ALT (16-63) U/L Alkaline Phosphatase (46-116) U/L Troponin I (0.00-0.056) ng/mL C-Reactive Protein (<1.0) mg/dL Total Protein (6.4-8.2) g/dl Albumin (3.4-5.0) g/dl Globulin gm/dL Albumin/Globulin Ratio (1-2) TSH 3rd Generation (0.358-3.74) uIU/mL Urine Color (Yellow) Urine Appearance (Clear) Urine pH (5.0-8.0) Ur Specific [place] (1.005-1.030) Urine Protein (Negative) Urine Glucose (UA) (Negative) Urine Ketones (Negative) Urine Occult Blood (Negative) Urine Nitrite (Negative) Urine Bilirubin (Negative) Urine Urobilinogen (0.2-1.0) Ur Leukocyte Esterase (Negative) Urine RBC (0-5) /hpf Urine WBC (0-5) /hpf Ur Squamous Epith Cells (0-5) /hpf Urine Bacteria (FEW) /hpf Urine Mucus (FEW) /hpf SARS-CoV-2 RNA (CORDELL) Negative (NEGATIVE) 06/17/21 06/18/21 06/18/21 Range/Units 22:40 05:31 05:31 WBC 10.66 H (4.23-9.07) K/mm3 RBC 3.41 L (4.63-6.08) M/mm3 Hgb 10.4 L (13.7-17.5) gm/dl Hct 33.6 L (40.1-51.0) % MCV 98.5 H (79.0-92.2) fl MCH 30.5 (25.7-32.2) pg MCHC 31.0 L (32.2-35.5) g/dl RDW Std Deviation 51.3 H (35.1-43.9) fL Plt Count 321 (163-337) K/mm3 MPV 10.1 (9.4-12.3) fl Neut % (Auto) 91.1 H (34.0-67.9) % Lymph % (Auto) 1.7 L (21.8-53.1) % [place] % (Auto) 6.5 (5.3-12.2) % Eos % (Auto) 0 L (0.8-7.0) Baso % (Auto) 0.0 L (0.1-1.2) % Neut # (Auto) 9.72 H (1.78-5.38) K/mm3 Lymph # (Auto) 0.18 L (1.32-3.57) K/mm3 [place] # (Auto) 0.69 (0.30-0.82) K/mm3 Eos # (Auto) 0.00 L (0.04-0.54) K/mm3 Baso # (Auto) 0.00 L (0.01-0.08) K/mm3 Manual Slide Review Abnormal smear Sodium 144 (136-145) mEq/L Potassium 3.5 (3.5-5.1) mEq/L Chloride 107 (98-107) mEq/L Carbon Dioxide 29 (21-32) mEq/L Anion Gap 11.5 (5-15) BUN 37 H (7-18) mg/dL Creatinine 1.1 (0.7-1.3) mg/dL Est Cr Clr Drug Dosing TNP Estimated GFR (MDRD) > 60 (>60) mL/min BUN/Creatinine Ratio 33.6 H (14-18) Glucose 128 H (70-99) mg/dL POC Glucose (70-99) mg/dL Lactic Acid (0.4-2.0) mmol/L Uric Acid 8.8 H (3.5-7.2) mg/dL Calcium 8.2 L (8.5-10.1) mg/dL Magnesium 2.3 (1.8-2.4) mg/dL Total Bilirubin 0.8 (0.2-1.0) mg/dL AST 29 (15-37) U/L ALT 41 (16-63) U/L Alkaline Phosphatase 121 H (46-116) U/L Troponin I (0.00-0.056) ng/mL C-Reactive Protein 16.8 H* (<1.0) mg/dL Total Protein 6.1 L (6.4-8.2) g/dl Albumin 2.2 L (3.4-5.0) g/dl Globulin 3.9 gm/dL Albumin/Globulin Ratio 0.6 L (1-2) TSH 3rd Generation 2.306 (0.358-3.74) uIU/mL Urine Color Yellow (Yellow) Urine Appearance Clear (Clear) Urine pH 6.0 (5.0-8.0) Ur Specific [place] 1.025 (1.005-1.030) Urine Protein Trace H (Negative) Urine Glucose (UA) Negative (Negative) Urine Ketones Negative (Negative) Urine Occult Blood Trace-lysed H (Negative) Urine Nitrite Negative (Negative) Urine Bilirubin Negative (Negative) Urine Urobilinogen 1.0 (0.2-1.0) Ur Leukocyte Esterase Negative (Negative) Urine RBC 5-10 H (0-5) /hpf Urine WBC 0-5 (0-5) /hpf Ur Squamous Epith Cells Not seen (0-5) /hpf Urine Bacteria Few (FEW) /hpf Urine Mucus Few (FEW) /hpf SARS-CoV-2 RNA (CORDELL) (NEGATIVE) 06/18/21 06/18/21 Range/Units 05:31 06:19 WBC (4.23-9.07) K/mm3 RBC (4.63-6.08) M/mm3 Hgb (13.7-17.5) gm/dl Hct (40.1-51.0) % MCV (79.0-92.2) fl MCH (25.7-32.2) pg MCHC (32.2-35.5) g/dl RDW Std Deviation (35.1-43.9) fL Plt Count (163-337) K/mm3 MPV (9.4-12.3) fl Neut % (Auto) (34.0-67.9) % Lymph % (Auto) (21.8-53.1) % [place] % (Auto) (5.3-12.2) % Eos % (Auto) (0.8-7.0) Baso % (Auto) (0.1-1.2) % Neut # (Auto) (1.78-5.38) K/mm3 Lymph # (Auto) (1.32-3.57) K/mm3 [place] # (Auto) (0.30-0.82) K/mm3 Eos # (Auto) (0.04-0.54) K/mm3 Baso # (Auto) (0.01-0.08) K/mm3 Manual Slide Review Sodium (136-145) mEq/L Potassium (3.5-5.1) mEq/L Chloride (98-107) mEq/L Carbon Dioxide (21-32) mEq/L Anion Gap (5-15) BUN (7-18) mg/dL Creatinine (0.7-1.3) mg/dL Est Cr Clr Drug Dosing Estimated GFR (MDRD) (>60) mL/min BUN/Creatinine Ratio (14-18) Glucose (70-99) mg/dL POC Glucose 115 H (70-99) mg/dL Lactic Acid (0.4-2.0) mmol/L Uric Acid (3.5-7.2) mg/dL Calcium (8.5-10.1) mg/dL Magnesium (1.8-2.4) mg/dL Total Bilirubin (0.2-1.0) mg/dL AST (15-37) U/L ALT (16-63) U/L Alkaline Phosphatase (46-116) U/L Troponin I 0.527 H* (0.00-0.056) ng/mL C-Reactive Protein (<1.0) mg/dL Total Protein (6.4-8.2) g/dl Albumin (3.4-5.0) g/dl Globulin gm/dL Albumin/Globulin Ratio (1-2) TSH 3rd Generation (0.358-3.74) uIU/mL Urine Color (Yellow) Urine Appearance (Clear) Urine pH (5.0-8.0) Ur Specific [place] (1.005-1.030) Urine Protein (Negative) Urine Glucose (UA) (Negative) Urine Ketones (Negative) Urine Occult Blood (Negative) Urine Nitrite (Negative) Urine Bilirubin (Negative) Urine Urobilinogen (0.2-1.0) Ur Leukocyte Esterase (Negative) Urine RBC (0-5) /hpf Urine WBC (0-5) /hpf Ur Squamous Epith Cells (0-5) /hpf Urine Bacteria (FEW) /hpf Urine Mucus (FEW) /hpf SARS-CoV-2 RNA (CORDELL) (NEGATIVE) Med Orders - Current: Current Medications Acetaminophen (Acetaminophen 325 Mg Tab) 650 mg PO Q4H PRN PRN Reason: Pain (Mild 1-3)/fever Hydrocodone Bitart/Acetaminophen (Acetaminophen/Hydrocodone 325-5 Mg Tab) 1 tab PO Q4H PRN PRN Reason: Pain (moderate 4-6) Allopurinol (Allopurinol 100 Mg Tab) 200 mg PO DAILY [facility] Last Admin: 06/18/21 08:53 Dose: 200 mg Documented by: Apixaban (Apixaban 5 Mg Tab) 5 mg PO BID [facility] Last Admin: 06/18/21 08:53 Dose: 5 mg Documented by: Aspirin (Aspirin 81 Mg Tab.Ec) 81 mg PO DAILY [facility] Last Admin: 06/18/21 08:53 Dose: 81 mg Documented by: Atorvastatin Calcium (Atorvastatin 20 Mg Tab) 10 mg PO DAILY [facility] Last Admin: 06/18/21 08:52 Dose: 10 mg Documented by: Bisacodyl (Bisacodyl 10 Mg Supp) 10 mg RECTAL DAILY PRN PRN Reason: Constipation Donepezil HCl (Donepezil 10 Mg Tab) 10 mg PO DAILY [facility] Last Admin: 06/18/21 08:54 Dose: 10 mg Documented by: Enalapril Maleate (Enalapril 5 Mg Tab) 5 mg PO DAILY [facility] Last Admin: 06/18/21 08:53 Dose: 5 mg Documented by: Furosemide (Furosemide 40 Mg Tab) 40 mg PO DAILY [facility] Last Admin: 06/18/21 08:53 Dose: 40 mg Documented by: Diltiazem HCl 100 mg/ Sodium (Chloride) 100 mls @ 5 mls/hr IV TITRATE [facility]; Protocol Last Titration: 06/18/21 11:29 Dose: 10 mg/hr, 10 mls/hr Documented by: Ceftriaxone Sodium 2 gm/ (Sodium Chloride) 100 mls @ 200 mls/hr IV Q24H [facility] Last Admin: 06/17/21 21:30 Dose: 200 mls/hr Documented by: Insulin Human Lispro (Insulin Lispro 100 Unit/Ml 3 Ml Kwikpen) 0 unit SUBCUT QIDACANDBED PRN; Protocol PRN Reason: Hyperglycemia Isosorbide Mononitrate (Isosorbide Mononitrate 30 Mg Tab.Er) 30 mg PO DAILY [facility] Last Admin: 06/18/21 08:53 Dose: 30 mg Documented by: Metoprolol Tartrate (Metoprolol Tartrate 50 Mg Tab) 50 mg PO BID [facility] Last Admin: 06/18/21 08:54 Dose: 50 mg Documented by: Metoprolol Tartrate (Metoprolol Tartrate 100 Mg Tab) 100 mg PO Q12HR [facility] Nitroglycerin (Nitroglycerin 0.4 Mg Tab.Sl) 0.4 mg SL Q5M PRN PRN Reason: Chest Pain Potassium Chloride (Potassium Chloride 20 Meq Tab.Er) 40 meq PO DAILY [facility] Last Admin: 06/18/21 08:53 Dose: 40 meq Documented by: Senna/Docusate Sodium (Docusate Sodium/Sennosides 50-8.6 Mg Tab) 2 tab PO BID [facility] Last Admin: 06/18/21 08:54 Dose: Not Given Documented by: Sertraline HCl (Sertraline 50 Mg Tab) 50 mg PO DAILY [facility] Last Admin: 06/18/21 08:53 Dose: 50 mg Documented by: Discontinued Medications Aspirin (Aspirin 81 Mg Tab.Chew) 81 mg PO DAILY [facility] Diltiazem HCl (Diltiazem 50 Mg/10 Ml Sdv) 20 mg IVPUSH ONETIME ONE Stop: 06/17/21 15:11 Last Admin: 06/17/21 15:50 Dose: 10 mg Documented by: Diltiazem HCl (Diltiazem 50 Mg/10 Ml Sdv) 10 mg IVPUSH ONETIME ONE Stop: 06/17/21 16:14 Last Admin: 06/17/21 16:27 Dose: 10 mg Documented by: Ceftriaxone Sodium 2 gm/ (Sodium Chloride) 100 mls @ 200 mls/hr IV Q24H [facility] Last Admin: 06/18/21 07:41 Dose: Not Given Documented by: Sodium Chloride (Sodium Chloride 0.45%) 1,000 mls @ 200 mls/hr IV ASDIRECTED [facility] Last Infusion: 06/17/21 23:19 Dose: 100 mls/hr Documented by: Sodium Chloride (Sodium Chloride 0.45%) 1,000 mls @ 100 mls/hr IV ASDIRECTED [facility] Stop: 06/18/21 07:00 Last Admin: 06/17/21 23:37 Dose: 100 mls/hr Documented by: Lorazepam (Lorazepam 0.5 Mg Tab) 0.5 mg PO ONETIME ONE Stop: 06/17/21 18:53 Last Admin: 06/17/21 19:00 Dose: 0.5 mg Documented by: Lorazepam (Lorazepam 0.5 Mg Tab) 0.5 mg PO ONETIME ONE Stop: 06/17/21 18:55 Last Admin: 06/17/21 19:35 Dose: Not Given Documented by: Lorazepam (Lorazepam 2 Mg/Ml Sdv) 0.25 mg IVPUSH ONETIME ONE Stop: 06/17/21 19:12 Last Admin: 06/17/21 19:44 Dose: 0.25 mg Documented by: Metoprolol Tartrate (Metoprolol Tartrate 50 Mg Tab) 50 mg PO ONETIME ONE Stop: 06/18/21 10:01 Last Admin: 06/18/21 11:10 Dose: 50 mg Documented by: Non-Formulary Medication (Crush Medications ) 1 dose PO ASDIRECTED [facility] Non-Formulary Medication (Donepezil) 10 mg PO DAILY [facility] Non-Formulary Medication ([place] Thick Liquids) 1 dose PO ASDIRECTED [facility] Non-Formulary Medication (Potassium Chloride [Potassium Chloride]) 40 meq PO ONETIME [facility] Prednisone (Prednisone 20 Mg Tab) 20 mg PO WITHBREAKFAST ALENA Prednisone (Prednisone 20 Mg Tab) 20 mg PO ONETIME ONE Stop: 06/17/21 19:58 - Exam Quality Assessment: No: Supplemental Oxygen General: Alert HEENT: Pupils Equal Neck: Supple Lungs: Normal Respiratory Effort, Crackles (Bibasilar) Cardiovascular: Irregular Rhythm, Tachycardia GI/Abdominal Exam: Normal Bowel Sounds, Soft, No Distention Extremities: Joint Swelling (Left knee swollen without erythema or warmth) Neurological: No New Focal Deficit - Patient Data Lab Results Last 24 hrs: Laboratory Results - last 24 hr 06/17/21 06/17/21 06/17/21 Range/Units 14:53 14:53 15:26 WBC 12.64 H (4.23-9.07) K/mm3 RBC 3.53 L (4.63-6.08) M/mm3 Hgb 10.6 L (13.7-17.5) gm/dl Hct 34.5 L (40.1-51.0) % MCV 97.7 H (79.0-92.2) fl MCH 30.0 (25.7-32.2) pg MCHC 30.7 L (32.2-35.5) g/dl RDW Std Deviation 51.0 H (35.1-43.9) fL Plt Count 353 H D (163-337) K/mm3 MPV 10.4 (9.4-12.3) fl Neut % (Auto) 90.9 H (34.0-67.9) % Lymph % (Auto) 2.8 L (21.8-53.1) % [place] % (Auto) 5.4 (5.3-12.2) % Eos % (Auto) 0 L (0.8-7.0) Baso % (Auto) 0.0 L (0.1-1.2) % Neut # (Auto) 11.49 H (1.78-5.38) K/mm3 Lymph # (Auto) 0.36 L (1.32-3.57) K/mm3 [place] # (Auto) 0.68 (0.30-0.82) K/mm3 Eos # (Auto) 0.00 L (0.04-0.54) K/mm3 Baso # (Auto) 0.00 L (0.01-0.08) K/mm3 Manual Slide Review Abnormal smear Sodium 147 H (136-145) mEq/L Potassium 3.8 (3.5-5.1) mEq/L Chloride 108 H (98-107) mEq/L Carbon Dioxide 28 (21-32) mEq/L Anion Gap 14.8 (5-15) BUN 48 H (7-18) mg/dL Creatinine 1.5 H (0.7-1.3) mg/dL Est Cr Clr Drug Dosing TNP Estimated GFR (MDRD) 45 (>60) mL/min BUN/Creatinine Ratio 32.0 H (14-18) Glucose 193 H (70-99) mg/dL POC Glucose (70-99) mg/dL Lactic Acid (0.4-2.0) mmol/L Uric Acid (3.5-7.2) mg/dL Calcium 8.5 (8.5-10.1) mg/dL Magnesium (1.8-2.4) mg/dL Total Bilirubin 0.7 (0.2-1.0) mg/dL AST 37 (15-37) U/L ALT 55 (16-63) U/L Alkaline Phosphatase 136 H (46-116) U/L Troponin I 0.425 H* (0.00-0.056) ng/mL C-Reactive Protein (<1.0) mg/dL Total Protein 6.3 L (6.4-8.2) g/dl Albumin 2.3 L (3.4-5.0) g/dl Globulin 4.0 gm/dL Albumin/Globulin Ratio 0.6 L (1-2) TSH 3rd Generation (0.358-3.74) uIU/mL Urine Color (Yellow) Urine Appearance (Clear) Urine pH (5.0-8.0) Ur Specific [place] (1.005-1.030) Urine Protein (Negative) Urine Glucose (UA) (Negative) Urine Ketones (Negative) Urine Occult Blood (Negative) Urine Nitrite (Negative) Urine Bilirubin (Negative) Urine Urobilinogen (0.2-1.0) Ur Leukocyte Esterase (Negative) Urine RBC (0-5) /hpf Urine WBC (0-5) /hpf Ur Squamous Epith Cells (0-5) /hpf Urine Bacteria (FEW) /hpf Urine Mucus (FEW) /hpf SARS-CoV-2 RNA (CORDELL) (NEGATIVE) 06/17/21 06/17/21 06/17/21 Range/Units 16:50 21:20 21:28 WBC (4.23-9.07) K/mm3 RBC (4.63-6.08) M/mm3 Hgb (13.7-17.5) gm/dl Hct (40.1-51.0) % MCV (79.0-92.2) fl MCH (25.7-32.2) pg MCHC (32.2-35.5) g/dl RDW Std Deviation (35.1-43.9) fL Plt Count (163-337) K/mm3 MPV (9.4-12.3) fl Neut % (Auto) (34.0-67.9) % Lymph % (Auto) (21.8-53.1) % [place] % (Auto) (5.3-12.2) % Eos % (Auto) (0.8-7.0) Baso % (Auto) (0.1-1.2) % Neut # (Auto) (1.78-5.38) K/mm3 Lymph # (Auto) (1.32-3.57) K/mm3 [place] # (Auto) (0.30-0.82) K/mm3 Eos # (Auto) (0.04-0.54) K/mm3 Baso # (Auto) (0.01-0.08) K/mm3 Manual Slide Review Sodium (136-145) mEq/L Potassium (3.5-5.1) mEq/L Chloride (98-107) mEq/L Carbon Dioxide (21-32) mEq/L Anion Gap (5-15) BUN (7-18) mg/dL Creatinine (0.7-1.3) mg/dL Est Cr Clr Drug Dosing Estimated GFR (MDRD) (>60) mL/min BUN/Creatinine Ratio (14-18) Glucose (70-99) mg/dL POC Glucose 147 H (70-99) mg/dL Lactic Acid 1.3 (0.4-2.0) mmol/L Uric Acid (3.5-7.2) mg/dL Calcium (8.5-10.1) mg/dL Magnesium (1.8-2.4) mg/dL Total Bilirubin (0.2-1.0) mg/dL AST (15-37) U/L ALT (16-63) U/L Alkaline Phosphatase (46-116) U/L Troponin I (0.00-0.056) ng/mL C-Reactive Protein (<1.0) mg/dL Total Protein (6.4-8.2) g/dl Albumin (3.4-5.0) g/dl Globulin gm/dL Albumin/Globulin Ratio (1-2) TSH 3rd Generation (0.358-3.74) uIU/mL Urine Color (Yellow) Urine Appearance (Clear) Urine pH (5.0-8.0) Ur Specific [place] (1.005-1.030) Urine Protein (Negative) Urine Glucose (UA) (Negative) Urine Ketones (Negative) Urine Occult Blood (Negative) Urine Nitrite (Negative) Urine Bilirubin (Negative) Urine Urobilinogen (0.2-1.0) Ur Leukocyte Esterase (Negative) Urine RBC (0-5) /hpf Urine WBC (0-5) /hpf Ur Squamous Epith Cells (0-5) /hpf Urine Bacteria (FEW) /hpf Urine Mucus (FEW) /hpf SARS-CoV-2 RNA (CORDELL) Negative (NEGATIVE) 06/17/21 06/18/21 06/18/21 Range/Units 22:40 05:31 05:31 WBC 10.66 H (4.23-9.07) K/mm3 RBC 3.41 L (4.63-6.08) M/mm3 Hgb 10.4 L (13.7-17.5) gm/dl Hct 33.6 L (40.1-51.0) % MCV 98.5 H (79.0-92.2) fl MCH 30.5 (25.7-32.2) pg MCHC 31.0 L (32.2-35.5) g/dl RDW Std Deviation 51.3 H (35.1-43.9) fL Plt Count 321 (163-337) K/mm3 MPV 10.1 (9.4-12.3) fl Neut % (Auto) 91.1 H (34.0-67.9) % Lymph % (Auto) 1.7 L (21.8-53.1) % [place] % (Auto) 6.5 (5.3-12.2) % Eos % (Auto) 0 L (0.8-7.0) Baso % (Auto) 0.0 L (0.1-1.2) % Neut # (Auto) 9.72 H (1.78-5.38) K/mm3 Lymph # (Auto) 0.18 L (1.32-3.57) K/mm3 [place] # (Auto) 0.69 (0.30-0.82) K/mm3 Eos # (Auto) 0.00 L (0.04-0.54) K/mm3 Baso # (Auto) 0.00 L (0.01-0.08) K/mm3 Manual Slide Review Abnormal smear Sodium 144 (136-145) mEq/L Potassium 3.5 (3.5-5.1) mEq/L Chloride 107 (98-107) mEq/L Carbon Dioxide 29 (21-32) mEq/L Anion Gap 11.5 (5-15) BUN 37 H (7-18) mg/dL Creatinine 1.1 (0.7-1.3) mg/dL Est Cr Clr Drug Dosing TNP Estimated GFR (MDRD) > 60 (>60) mL/min BUN/Creatinine Ratio 33.6 H (14-18) Glucose 128 H (70-99) mg/dL POC Glucose (70-99) mg/dL Lactic Acid (0.4-2.0) mmol/L Uric Acid 8.8 H (3.5-7.2) mg/dL Calcium 8.2 L (8.5-10.1) mg/dL Magnesium 2.3 (1.8-2.4) mg/dL Total Bilirubin 0.8 (0.2-1.0) mg/dL AST 29 (15-37) U/L ALT 41 (16-63) U/L Alkaline Phosphatase 121 H (46-116) U/L Troponin I (0.00-0.056) ng/mL C-Reactive Protein 16.8 H* (<1.0) mg/dL Total Protein 6.1 L (6.4-8.2) g/dl Albumin 2.2 L (3.4-5.0) g/dl Globulin 3.9 gm/dL Albumin/Globulin Ratio 0.6 L (1-2) TSH 3rd Generation 2.306 (0.358-3.74) uIU/mL Urine Color Yellow (Yellow) Urine Appearance Clear (Clear) Urine pH 6.0 (5.0-8.0) Ur Specific [place] 1.025 (1.005-1.030) Urine Protein Trace H (Negative) Urine Glucose (UA) Negative (Negative) Urine Ketones Negative (Negative) Urine Occult Blood Trace-lysed H (Negative) Urine Nitrite Negative (Negative) Urine Bilirubin Negative (Negative) Urine Urobilinogen 1.0 (0.2-1.0) Ur Leukocyte Esterase Negative (Negative) Urine RBC 5-10 H (0-5) /hpf Urine WBC 0-5 (0-5) /hpf Ur Squamous Epith Cells Not seen (0-5) /hpf Urine Bacteria Few (FEW) /hpf Urine Mucus Few (FEW) /hpf SARS-CoV-2 RNA (CORDELL) (NEGATIVE) 06/18/21 06/18/21 Range/Units 05:31 06:19 WBC (4.23-9.07) K/mm3 RBC (4.63-6.08) M/mm3 Hgb (13.7-17.5) gm/dl Hct (40.1-51.0) % MCV (79.0-92.2) fl MCH (25.7-32.2) pg MCHC (32.2-35.5) g/dl RDW Std Deviation (35.1-43.9) fL Plt Count (163-337) K/mm3 MPV (9.4-12.3) fl Neut % (Auto) (34.0-67.9) % Lymph % (Auto) (21.8-53.1) % [place] % (Auto) (5.3-12.2) % Eos % (Auto) (0.8-7.0) Baso % (Auto) (0.1-1.2) % Neut # (Auto) (1.78-5.38) K/mm3 Lymph # (Auto) (1.32-3.57) K/mm3 [place] # (Auto) (0.30-0.82) K/mm3 Eos # (Auto) (0.04-0.54) K/mm3 Baso # (Auto) (0.01-0.08) K/mm3 Manual Slide Review Sodium (136-145) mEq/L Potassium (3.5-5.1) mEq/L Chloride (98-107) mEq/L Carbon Dioxide (21-32) mEq/L Anion Gap (5-15) BUN (7-18) mg/dL Creatinine (0.7-1.3) mg/dL Est Cr Clr Drug Dosing Estimated GFR (MDRD) (>60) mL/min BUN/Creatinine Ratio (14-18) Glucose (70-99) mg/dL POC Glucose 115 H (70-99) mg/dL Lactic Acid (0.4-2.0) mmol/L Uric Acid (3.5-7.2) mg/dL Calcium (8.5-10.1) mg/dL Magnesium (1.8-2.4) mg/dL Total Bilirubin (0.2-1.0) mg/dL AST (15-37) U/L ALT (16-63) U/L Alkaline Phosphatase (46-116) U/L Troponin I 0.527 H* (0.00-0.056) ng/mL C-Reactive Protein (<1.0) mg/dL Total Protein (6.4-8.2) g/dl Albumin (3.4-5.0) g/dl Globulin gm/dL Albumin/Globulin Ratio (1-2) TSH 3rd Generation (0.358-3.74) uIU/mL Urine Color (Yellow) Urine Appearance (Clear) Urine pH (5.0-8.0) Ur Specific [place] (1.005-1.030) Urine Protein (Negative) Urine Glucose (UA) (Negative) Urine Ketones (Negative) Urine Occult Blood (Negative) Urine Nitrite (Negative) Urine Bilirubin (Negative) Urine Urobilinogen (0.2-1.0) Ur Leukocyte Esterase (Negative) Urine RBC (0-5) /hpf Urine WBC (0-5) /hpf Ur Squamous Epith Cells (0-5) /hpf Urine Bacteria (FEW) /hpf Urine Mucus (FEW) /hpf SARS-CoV-2 RNA (CORDELL) (NEGATIVE) Result Diagrams: 06/18/21 05:31 06/18/21 05:31 Sepsis Event Note - Evaluation Sepsis Screening Result: No Definite Risk - Focused Exam Vital Signs: Vital Signs Temp Pulse Pulse Resp BP BP Pulse Ox 06/18/21 11:10 98 98/80 06/18/21 10:01 14 94 L 06/18/21 10:00 115 H 19 101/80 94 L 06/18/21 09:59 16 96 06/18/21 09:50 24 H 115/78 94 L 06/18/21 09:49 20 93 L 06/18/21 09:20 16 131/67 97 06/18/21 09:02 18 06/18/21 09:01 20 06/18/21 09:00 110 H 23 H 06/18/21 08:54 115 H 120/83 06/18/21 08:53 120/83 06/18/21 08:50 17 120/83 06/18/21 08:49 15 99 06/18/21 08:45 19 98/79 06/18/21 08:44 17 98 06/18/21 08:31 17 116/80 100 06/18/21 08:30 15 87 L 06/18/21 08:15 13 123/103 H 98 06/18/21 08:14 25 H 96 06/18/21 08:01 27 H 89 L 06/18/21 08:00 110 H 27 H 113/91 H 06/18/21 07:59 21 H 96 06/18/21 07:53 97.7 F 108 H 06/18/21 07:46 20 117/70 96 06/18/21 07:45 16 92 L 06/18/21 07:30 27 H 112/87 06/18/21 07:29 18 98 06/18/21 07:16 17 106/66 99 06/18/21 07:15 13 90 L 06/18/21 07:02 24 H 116/100 H 91 L 06/18/21 07:01 23 H 06/18/21 07:00 16 06/18/21 06:56 98.6 F 101 H 18 123/80 92 L 06/18/21 06:48 25 H 123/80 06/18/21 06:47 17 06/18/21 06:33 23 H 128/90 100 06/18/21 06:32 26 H 06/18/21 06:16 17 108/74 97 06/18/21 06:15 17 06/18/21 06:01 28 H 118/82 91 L 06/18/21 06:00 98.6 F 126 H 17 108/74 86 L 06/18/21 05:52 15 115/86 97 06/18/21 05:51 18 06/18/21 05:30 18 111/91 H 99 06/18/21 05:29 16 98 06/18/21 05:16 19 106/83 06/18/21 05:15 20 95 06/18/21 05:03 23 H 123/83 96 06/18/21 05:02 19 99 06/18/21 05:00 98.6 F 104 H 23 H 123/83 98 06/18/21 04:49 18 108/85 06/18/21 04:48 19 06/18/21 04:46 23 H 85/54 L 06/18/21 04:45 17 06/18/21 04:16 18 105/94 H 06/18/21 04:15 28 H 06/18/21 04:01 16 104/76 06/18/21 04:00 98.6 F 104 H 17 104/76 97 06/18/21 03:47 18 122/79 06/18/21 03:46 24 H 06/18/21 03:33 16 06/18/21 03:32 30 H 06/18/21 03:16 20 106/78 06/18/21 03:15 21 H 06/18/21 03:01 12 94/68 96 06/18/21 03:00 98.6 F 122 H 18 106/78 06/18/21 02:50 15 111/67 100 06/18/21 02:49 15 100 06/18/21 02:48 15 127/112 H 06/18/21 02:47 25 H 97 06/18/21 02:31 14 115/82 100 06/18/21 02:30 15 100 06/18/21 02:16 19 108/89 100 06/18/21 02:15 19 99 06/18/21 02:01 17 104/78 06/18/21 02:00 98.6 F 104 H 14 104/78 98 06/18/21 01:46 18 108/96 H 06/18/21 01:45 17 87 L 06/18/21 01:31 21 H 112/74 06/18/21 01:30 13 06/18/21 01:16 19 108/83 100 06/18/21 01:15 20 06/18/21 01:01 18 102/90 06/18/21 01:00 98.6 F 98 18 102/90 100 06/18/21 00:48 24 H 103/72 06/18/21 00:47 24 H 06/18/21 00:46 19 76/59 L 93 L 06/18/21 00:45 13 06/18/21 00:31 14 96/58 L 06/18/21 00:30 16 06/18/21 00:16 17 104/73 96 06/18/21 00:02 22 H 110/73 06/18/21 00:01 24 H 98 06/18/21 00:00 97.0 F 95 19 103/72 100 - Problem List & Annotations (1) Type 2 myocardial infarction due to arrhythmia SNOMED Code(s): 30402965 Code(s): I49.9 - CARDIAC ARRHYTHMIA, UNSPECIFIED; I21.A1 - MYOCARDIAL INFARCTION TYPE 2 Status: Acute Current Visit: Yes (2) Dementia SNOMED Code(s): 27089180 Code(s): F03.90 - UNSPECIFIED DEMENTIA WITHOUT BEHAVIORAL DISTURBANCE Status: Acute Current Visit: Yes (3) Atrial fibrillation with RVR SNOMED Code(s): 524287122868364 Code(s): I48.91 - UNSPECIFIED ATRIAL FIBRILLATION Status: Acute Current Visit: Yes (4) Inflammatory arthritis SNOMED Code(s): 3322954 Code(s): M19.90 - UNSPECIFIED OSTEOARTHRITIS, UNSPECIFIED SITE Status: Acute Current Visit: No (5) Type II diabetes mellitus SNOMED Code(s): 57186909 Code(s): E11.9 - TYPE 2 DIABETES MELLITUS WITHOUT COMPLICATIONS Status: Chronic Priority: Medium Current Visit: No Qualifiers: Diabetes mellitus jail insulin use: with long goods drier use Diabetes mellitus complication status: with other specified complication Qualified Code(s): E11.69 - Type 2 diabetes mellitus with other specified complication; Z79.4 - long-term (current) use of insulin - Problem List Review Problem List Initiated/Reviewed/Updated: Yes - My Orders Last 24 Hours: My Active Orders 06/17/21 19:11 Nitroglycerin [Nitrostat] 0.4 mg SL Q5M PRN bisacodyL [Dulcolax] 10 mg RECTAL DAILY PRN 06/17/21 19:40 Oxygen Therapy [RC] PRN Up With Assistance [RC] ASDIRECTED VTE/DVT Education [RC] PER UNIT ROUTINE Vital Signs [RC] Q1H Acetaminophen [TylenoL] 650 mg PO Q4H PRN Acetaminophen/HYDROcodone [Pilot 325-5 MG] 1 tab PO Q4H PRN Resuscitation Status Routine 06/17/21 19:44 Blood Glucose Check, Bedside [RC] QIDACANDBED Insulin Lispro [HumaLOG] See Protocol SUBCUT QIDACANDBED PRN 06/17/21 19:55 Blood Culture x2 Reflex Set [OM.PC] Stat 06/17/21 20:25 BLOOD CULTURE [MREF] Stat 06/17/21 20:41 PROCALCITONIN [REF] Routine 06/17/21 21:00 Apixaban [Eliquis] 5 mg PO BID Docusate Sodium/Sennosides [Senna Plus] 2 tab PO BID Metoprolol Tartrate [Lopressor] 50 mg PO BID cefTRIAXone [Rocephin] 2 gm Sodium Chloride 0.9% [Normal Saline AdvBag] 100 ml IV Q24H 06/17/21 21:20 BLOOD CULTURE [MREF] Stat 06/18/21 09:00 Aspirin [Halfprin] 81 mg PO DAILY Donepezil [Aricept] 10 mg PO DAILY Enalapril [Vasotec] 5 mg PO DAILY Furosemide [Lasix] 40 mg PO DAILY Isosorbide Mononitrate [Imdur] 30 mg PO DAILY Potassium Chloride [Klor-Con M20] 40 meq PO DAILY Sertraline [Zoloft] 50 mg PO DAILY allopurinoL [Zyloprim] 200 mg PO DAILY atorvaSTATin [Lipitor] 10 mg PO DAILY 06/18/21 Lunch Consistent Carbohydrate Diet [DIET] National Dysphagia Diet [DIET] 06/18/21 21:00 Metoprolol Tartrate [Lopressor] 100 mg PO Q12HR - Plan Plan:: 85-year-old male with history of severe dementia, atrial fibrillation with RVR, gout, bilateral knee replacement, coronary artery disease with non-ST elevated [place], diabetes, CVA with left-sided hemiplegia and hemiparesis,, diastolic heart failure hyperlipidemia, hypertension dysphagia presents to the emergency department from his primary care provider secondary to A. fib with RVR. Atrial fibrillation with RVR Type 2 myocardial infarction History of diastolic dysfunction and coronary artery disease 06/17/2021 * [facility] shows that he recently, 3 days ago, had his metoprolol tartrate increased from 37.5 twice daily to 50 mg twice daily * Heart rate today was in the 140s and he was referred to the emergency department * He failed multiple boluses of Cardizem and was placed on a Cardizem drip in the emergency department * There is some concern of secondary infection and possibly SIRS/sepsis. Patient does have an elevated heart rate with elevated white count. White count could be increased because he was on prednisone for his possible gout. * Troponin is 0.425. This is likely secondary to rate related increase in card iac work. Therefore, patient would not benefit from anticoagulation or cardiac catheterization * Home medications include Eliquis 5 mg twice daily, enalapril 5 mg daily, metoprolol 50 mg twice daily, furosemide 40 mg daily, isosorbide mononitrate 24-hour 30 mg daily 06/18/2021 It was difficult to control heart rate overnight. This morning Cardizem drip was increased to 20 mg/h. Also, we increased his metoprolol tartrate to 100 mg twice daily. Unfortunately, he did have significant drop in his blood pressures. Cardizem drip was ultimately held this morning and will continue to monitor and adjust the drip as necessary. Also, troponin did come back elevated slightly higher at 0.5, but not likely significant. Patient will continue on Eliquis 5 mg twice daily. Hypernatremia and acute kidney injury 06/17/2021 * Sodium is 147 and creatinine of 1.5 * Patient appears to have some dehydration * Start one half normal saline 200 mL over the first hour then 100 mL/h for a total of 1 L. * Recheck kidney function and electrolytes in the morning. 06/18/2021 Renal function significantly improved. Creatinine is down to 1.1 and sodium is normal at 144. We will continue to monitor. Severe left knee pain with effusion Report of cellulitis over that joint History of gout 06/17/2021 * Gout versus septic arthritis versus hemorrhagic effusion * Start Rocephin 2 g IV daily * Blood cultures * Procalcitonin, lactic acid, CRP, uric acid * Follow CBC, CMP, CRP * Consult orthopedics in the morning 06/18/2021 Dr. Morales was consulted and on arthrocentesis found the joint to be grossly infected. I contacted his son and explained to him that he would likely need to be transferred to have definitive treatment since we will not be able to care fo r him appropriately after surgery. He stated he needed to talk to his sister who is the medical power of [employer]. We are still waiting for her to get back to us with what she wants to do. I did start him on vancomycin, pharmacy to dose. At this time we will continue him on ceftriaxone although this will likely be able to be discontinued. I would like to start him on rifampin, but there is a significant interaction with Cardizem and Eliquis. I will hold off at this time. Severe dementia History of CVA * Likely vascular dementia from history of CVA * On Aricept * Will update family regularly Diabetes mellitus * On Lantus 10 units daily * Unknown hemoglobin A1c 06/18/2021 Patient was started on a sliding scale insulin. Blood sugars have been in the mid 100s. We will check a hemoglobin A1c. VTE prophylaxis with Eliquis CODE STATUS: Full code
[2021-06-18] MEDS ORDERED: Vancomycin 1 GM, Vancomycin 250 MG in Sodium Chloride 0.9% 250 ML IV ONE ×2 (13:00→16:00)
[2021-06-18] MEDS ORDERED: Sodium Chloride 0.45% 1,000 ML IV SCH (14:30)
[2021-06-18] MEDS: Insulin Lispro 100 Unit/ML 3 ML KwikPen SUBCUT PRN (20:02)
[2021-06-18] MEDS: Metoprolol Tartrate 100 MG Tab PO SCH (20:04)
[2021-06-18] MEDS: cefTRIAXone 2 GM in Sodium Chloride 0.9% 100 ML IV SCH (20:05)
[2021-06-18] MEDS: Diltiazem IR 60 MG Tab PO SCH (23:56)
[2021-06-19] MEDS: Diltiazem IR 60 MG Tab PO SCH ×4 (05:58→23:59)
[2021-06-19 06:48] LABS: HEMOGLOBIN A1C 6.4 %
[2021-06-19] MEDS: Potassium Chloride 20 MEQ Tab.ER PO SCH (08:33)
[2021-06-19] MEDS: Isosorbide Mononitrate 30 MG Tab.ER PO SCH (08:33)
[2021-06-19] MEDS: Apixaban 5 MG Tab PO SCH ×2 (08:34→20:22)
[2021-06-19] MEDS: Enalapril 5 MG Tab PO SCH (08:34)
[2021-06-19] MEDS: Furosemide 40 MG Tab PO SCH (08:34)
[2021-06-19] MEDS: Metoprolol Tartrate 100 MG Tab PO SCH ×2 (08:34→20:22)
[2021-06-19] MEDS: Aspirin 81 MG Tab.EC PO SCH (08:34)
[2021-06-19] MEDS: Metoprolol Tartrate 50 MG Tab PO SCH (08:34)
[2021-06-19] MEDS: Donepezil 10 MG Tab PO SCH (08:34)
[2021-06-19] MEDS: Allopurinol 100 MG Tab PO SCH (08:35)
[2021-06-19] MEDS: Sertraline 50 MG Tab PO SCH (08:35)
[2021-06-19] MEDS: atorvaSTATin 20 MG Tab PO SCH (08:35)
[2021-06-19] MEDS: Oxacillin 2 GM in Sodium Chloride 0.9% 100 ML IV SCH ×2 (10:20→14:59)
[2021-06-19] MEDS: Sodium Chloride 0.45% 1,000 ML IV SCH (10:20)
--- NOTE | 2021-06-19 16:12 | PCM.PN ---
- General Info Date of Service: 06/19/21 Admission Dx/Problem (Free Text): Admission Diagnosis/Problem Admission Diagnosis/Problem Atrial fibrillation Subjective Update: 85-year-old male with severe dementia admitted for atrial fibrillation with RVR, recurrence. Patient continues to complain of left knee pain. Resting comfortably without complaint. Waiting on beds to open at [facility] to transfer for definitive care. Functional Status: Denies: Pain Controlled - Review of Systems General: Reports: No Symptoms HEENT: Reports: No Symptoms Pulmonary: Reports: No Symptoms Cardiovascular: Reports: No Symptoms Musculoskeletal: Reports: Joint Pain - Patient Data Vitals - Most Recent: Last Vital Signs Temp 97.2 F 06/19/21 13:00 Pulse 121 H 06/19/21 08:34 Resp 18 06/19/21 13:00 BP 122/72 06/19/21 12:01 Pulse Ox 93 L 06/19/21 13:00 Weight - Most Recent: 175 lb 14.4 oz I&O - Last 24 Hours: Intake & Output 06/19/21 06/19/21 06/19/21 06:59 14:59 22:59 Intake Total 1202 Balance 1202 Lab Results Last 24 Hours: Laboratory Results - last 24 hr 06/18/21 06/18/21 06/18/21 Range/Units 13:10 15:49 17:00 WBC (4.23-9.07) K/mm3 RBC (4.63-6.08) M/mm3 Hgb (13.7-17.5) gm/dl Hct (40.1-51.0) % MCV (79.0-92.2) fl MCH (25.7-32.2) pg MCHC (32.2-35.5) g/dl RDW Std Deviation (35.1-43.9) fL Plt Count (163-337) K/mm3 MPV (9.4-12.3) fl Neut % (Auto) (34.0-67.9) % Lymph % (Auto) (21.8-53.1) % [place] % (Auto) (5.3-12.2) % Eos % (Auto) (0.8-7.0) Baso % (Auto) (0.1-1.2) % Neut # (Auto) (1.78-5.38) K/mm3 Lymph # (Auto) (1.32-3.57) K/mm3 [place] # (Auto) (0.30-0.82) K/mm3 Eos # (Auto) (0.04-0.54) K/mm3 Baso # (Auto) (0.01-0.08) K/mm3 Manual Slide Review Sodium (136-145) mEq/L Potassium (3.5-5.1) mEq/L Chloride (98-107) mEq/L Carbon Dioxide (21-32) mEq/L Anion Gap (5-15) BUN (7-18) mg/dL Creatinine (0.7-1.3) mg/dL Est Cr Clr Drug Dosing mL/min Estimated GFR (MDRD) (>60) mL/min BUN/Creatinine Ratio (14-18) Glucose (70-99) mg/dL POC Glucose 172 H (70-99) mg/dL Hemoglobin A1c ( - 5.6) % Calcium (8.5-10.1) mg/dL Total Bilirubin (0.2-1.0) mg/dL AST (15-37) U/L ALT (16-63) U/L Alkaline Phosphatase (46-116) U/L Troponin I (0.00-0.056) ng/mL C-Reactive Protein (<1.0) mg/dL Total Protein (6.4-8.2) g/dl Albumin (3.4-5.0) g/dl Globulin gm/dL Albumin/Globulin Ratio (1-2) Fluid Diff Comment Fluid Seg Neutrophils 93.0 H (0-25) % Fluid Lymphocytes 7.0 (0-78) % Fl Polymorphonucl Cell Not Reportable Fluid Crystals Cancelled Fluid Total Protein 4.9 gm/dl Synovial Crystals TNP 06/18/21 06/19/21 06/19/21 Range/Units 20:00 04:54 04:54 WBC 11.74 H (4.23-9.07) K/mm3 RBC 3.42 L (4.63-6.08) M/mm3 Hgb 10.0 L (13.7-17.5) gm/dl Hct 33.5 L (40.1-51.0) % MCV 98.0 H (79.0-92.2) fl MCH 29.2 (25.7-32.2) pg MCHC 29.9 L (32.2-35.5) g/dl RDW Std Deviation 51.2 H (35.1-43.9) fL Plt Count 338 H (163-337) K/mm3 MPV 10.5 (9.4-12.3) fl Neut % (Auto) 90.8 H (34.0-67.9) % Lymph % (Auto) 2.5 L (21.8-53.1) % [place] % (Auto) 5.8 (5.3-12.2) % Eos % (Auto) 0 L (0.8-7.0) Baso % (Auto) 0.0 L (0.1-1.2) % Neut # (Auto) 10.67 H (1.78-5.38) K/mm3 Lymph # (Auto) 0.29 L (1.32-3.57) K/mm3 [place] # (Auto) 0.68 (0.30-0.82) K/mm3 Eos # (Auto) 0.00 L (0.04-0.54) K/mm3 Baso # (Auto) 0.00 L (0.01-0.08) K/mm3 Manual Slide Review Abnormal smear Sodium 146 H (136-145) mEq/L Potassium 3.9 (3.5-5.1) mEq/L Chloride 108 H (98-107) mEq/L Carbon Dioxide 28 (21-32) mEq/L Anion Gap 13.9 (5-15) BUN 31 H (7-18) mg/dL Creatinine 1.0 (0.7-1.3) mg/dL Est Cr Clr Drug Dosing 51.41 mL/min Estimated GFR (MDRD) > 60 (>60) mL/min BUN/Creatinine Ratio 31.0 H (14-18) Glucose 141 H (70-99) mg/dL POC Glucose 151 H (70-99) mg/dL Hemoglobin A1c ( - 5.6) % Calcium 7.8 L (8.5-10.1) mg/dL Total Bilirubin 0.6 (0.2-1.0) mg/dL AST 27 (15-37) U/L ALT 42 (16-63) U/L Alkaline Phosphatase 113 (46-116) U/L Troponin I (0.00-0.056) ng/mL C-Reactive Protein 16.1 H* (<1.0) mg/dL Total Protein 5.1 L (6.4-8.2) g/dl Albumin 2.2 L (3.4-5.0) g/dl Globulin 2.9 gm/dL Albumin/Globulin Ratio 0.8 L (1-2) Fluid Diff Comment Fluid Seg Neutrophils (0-25) % Fluid Lymphocytes (0-78) % Fl Polymorphonucl Cell Fluid Crystals Fluid Total Protein gm/dl Synovial Crystals 06/19/21 06/19/21 06/19/21 Range/Units 04:54 04:54 06:00 WBC (4.23-9.07) K/mm3 RBC (4.63-6.08) M/mm3 Hgb (13.7-17.5) gm/dl Hct (40.1-51.0) % MCV (79.0-92.2) fl MCH (25.7-32.2) pg MCHC (32.2-35.5) g/dl RDW Std Deviation (35.1-43.9) fL Plt Count (163-337) K/mm3 MPV (9.4-12.3) fl Neut % (Auto) (34.0-67.9) % Lymph % (Auto) (21.8-53.1) % [place] % (Auto) (5.3-12.2) % Eos % (Auto) (0.8-7.0) Baso % (Auto) (0.1-1.2) % Neut # (Auto) (1.78-5.38) K/mm3 Lymph # (Auto) (1.32-3.57) K/mm3 [place] # (Auto) (0.30-0.82) K/mm3 Eos # (Auto) (0.04-0.54) K/mm3 Baso # (Auto) (0.01-0.08) K/mm3 Manual Slide Review Sodium (136-145) mEq/L Potassium (3.5-5.1) mEq/L Chloride (98-107) mEq/L Carbon Dioxide (21-32) mEq/L Anion Gap (5-15) BUN (7-18) mg/dL Creatinine (0.7-1.3) mg/dL Est Cr Clr Drug Dosing mL/min Estimated GFR (MDRD) (>60) mL/min BUN/Creatinine Ratio (14-18) Glucose (70-99) mg/dL POC Glucose 125 H (70-99) mg/dL Hemoglobin A1c 6.4 H ( - 5.6) % Calcium (8.5-10.1) mg/dL Total Bilirubin (0.2-1.0) mg/dL AST (15-37) U/L ALT (16-63) U/L Alkaline Phosphatase (46-116) U/L Troponin I 0.216 H* (0.00-0.056) ng/mL C-Reactive Protein (<1.0) mg/dL Total Protein (6.4-8.2) g/dl Albumin (3.4-5.0) g/dl Globulin gm/dL Albumin/Globulin Ratio (1-2) Fluid Diff Comment Fluid Seg Neutrophils (0-25) % Fluid Lymphocytes (0-78) % Fl Polymorphonucl Cell Fluid Crystals Fluid Total Protein gm/dl Synovial Crystals 06/19/21 Range/Units 11:57 WBC (4.23-9.07) K/mm3 RBC (4.63-6.08) M/mm3 Hgb (13.7-17.5) gm/dl Hct (40.1-51.0) % MCV (79.0-92.2) fl MCH (25.7-32.2) pg MCHC (32.2-35.5) g/dl RDW Std Deviation (35.1-43.9) fL Plt Count (163-337) K/mm3 MPV (9.4-12.3) fl Neut % (Auto) (34.0-67.9) % Lymph % (Auto) (21.8-53.1) % [place] % (Auto) (5.3-12.2) % Eos % (Auto) (0.8-7.0) Baso % (Auto) (0.1-1.2) % Neut # (Auto) (1.78-5.38) K/mm3 Lymph # (Auto) (1.32-3.57) K/mm3 [place] # (Auto) (0.30-0.82) K/mm3 Eos # (Auto) (0.04-0.54) K/mm3 Baso # (Auto) (0.01-0.08) K/mm3 Manual Slide Review Sodium (136-145) mEq/L Potassium (3.5-5.1) mEq/L Chloride (98-107) mEq/L Carbon Dioxide (21-32) mEq/L Anion Gap (5-15) BUN (7-18) mg/dL Creatinine (0.7-1.3) mg/dL Est Cr Clr Drug Dosing mL/min Estimated GFR (MDRD) (>60) mL/min BUN/Creatinine Ratio (14-18) Glucose (70-99) mg/dL POC Glucose 145 H (70-99) mg/dL Hemoglobin A1c ( - 5.6) % Calcium (8.5-10.1) mg/dL Total Bilirubin (0.2-1.0) mg/dL AST (15-37) U/L ALT (16-63) U/L Alkaline Phosphatase (46-116) U/L Troponin I (0.00-0.056) ng/mL C-Reactive Protein (<1.0) mg/dL Total Protein (6.4-8.2) g/dl Albumin (3.4-5.0) g/dl Globulin gm/dL Albumin/Globulin Ratio (1-2) Fluid Diff Comment Fluid Seg Neutrophils (0-25) % Fluid Lymphocytes (0-78) % Fl Polymorphonucl Cell Fluid Crystals Fluid Total Protein gm/dl Synovial Crystals Geoffrey Results Last 24 Hours: Microbiology 06/18/21 15:49 Gram Stain - Final Knee, Left 06/17/21 21:20 Bacteria Detection (PCR) - Final Blood 06/17/21 21:20 Blood Culture - Preliminary Blood - Venous - Lab Draw Staphylococcus Aureus 06/18/21 15:49 Gram Stain - Final Knee, Left Med Orders - Current: Current Medications Acetaminophen (Acetaminophen 325 Mg Tab) 650 mg PO Q4H PRN PRN Reason: Pain (Mild 1-3)/fever Hydrocodone Bitart/Acetaminophen (Acetaminophen/Hydrocodone 325-5 Mg Tab) 1 tab PO Q4H PRN PRN Reason: Pain (moderate 4-6) Allopurinol (Allopurinol 100 Mg Tab) 200 mg PO DAILY [facility] Last Admin: 06/19/21 08:35 Dose: 200 mg Documented by: Apixaban (Apixaban 5 Mg Tab) 5 mg PO BID [facility] Last Admin: 06/19/21 08:34 Dose: 5 mg Documented by: Aspirin (Aspirin 81 Mg Tab.Ec) 81 mg PO DAILY [facility] Last Admin: 06/19/21 08:34 Dose: 81 mg Documented by: Atorvastatin Calcium (Atorvastatin 20 Mg Tab) 10 mg PO DAILY [facility] Last Admin: 06/19/21 08:35 Dose: 10 mg Documented by: Bisacodyl (Bisacodyl 10 Mg Supp) 10 mg RECTAL DAILY PRN PRN Reason: Constipation Diltiazem HCl (Diltiazem Ir 60 Mg Tab) 60 mg PO Q6HR [facility] Last Admin: 06/19/21 11:58 Dose: 60 mg Documented by: Donepezil HCl (Donepezil 10 Mg Tab) 10 mg PO DAILY [facility] Last Admin: 06/19/21 08:34 Dose: 10 mg Documented by: Enalapril Maleate (Enalapril 5 Mg Tab) 5 mg PO DAILY [facility] Last Admin: 06/19/21 08:34 Dose: 5 mg Documented by: Furosemide (Furosemide 40 Mg Tab) 40 mg PO DAILY [facility] Last Admin: 06/19/21 08:34 Dose: 40 mg Documented by: Diltiazem HCl 100 mg/ Sodium (Chloride) 100 mls @ 5 mls/hr IV TITRATE [facility]; Protocol Last Titration: 06/19/21 01:24 Dose: 0 mg/hr, 0 mls/hr Documented by: Sodium Chloride (Sodium Chloride 0.45%) 1,000 mls @ 75 mls/hr IV ASDIRECTED [facility] Last Admin: 06/19/21 10:20 Dose: 75 mls/hr Documented by: Oxacillin Sodium 2 gm/ (Dextrose/Water) 100 mls @ 200 mls/hr IV Q4H [facility] Insulin Human Lispro (Insulin Lispro 100 Unit/Ml 3 Ml Kwikpen) 0 unit SUBCUT QIDACANDBED PRN; Protocol PRN Reason: Hyperglycemia Last Admin: 06/18/21 20:02 Dose: 2 units Documented by: Isosorbide Mononitrate (Isosorbide Mononitrate 30 Mg Tab.Er) 30 mg PO DAILY [facility] Last Admin: 06/19/21 08:33 Dose: 30 mg Documented by: Metoprolol Tartrate (Metoprolol Tartrate 100 Mg Tab) 150 mg PO Q12HR [facility] Nitroglycerin (Nitroglycerin 0.4 Mg Tab.Sl) 0.4 mg SL Q5M PRN PRN Reason: Chest Pain Potassium Chloride (Potassium Chloride 20 Meq Tab.Er) 40 meq PO DAILY [facility] Last Admin: 06/19/21 08:33 Dose: 40 meq Documented by: Senna/Docusate Sodium (Docusate Sodium/Sennosides 50-8.6 Mg Tab) 2 tab PO BID [facility] Last Admin: 06/19/21 08:36 Dose: Not Given Documented by: Sertraline HCl (Sertraline 50 Mg Tab) 50 mg PO DAILY [facility] Last Admin: 06/19/21 08:35 Dose: 50 mg Documented by: Discontinued Medications Aspirin (Aspirin 81 Mg Tab.Chew) 81 mg PO DAILY [facility] Diltiazem HCl (Diltiazem 50 Mg/10 Ml Sdv) 20 mg IVPUSH ONETIME ONE Stop: 06/17/21 15:11 Last Admin: 06/17/21 15:50 Dose: 10 mg Documented by: Diltiazem HCl (Diltiazem 50 Mg/10 Ml Sdv) 10 mg IVPUSH ONETIME ONE Stop: 06/17/21 16:14 Last Admin: 06/17/21 16:27 Dose: 10 mg Documented by: Ceftriaxone Sodium 2 gm/ (Sodium Chloride) 100 mls @ 200 mls/hr IV Q24H [facility] Last Admin: 06/18/21 07:41 Dose: Not Given Documented by: Ceftriaxone Sodium 2 gm/ (Sodium Chloride) 100 mls @ 200 mls/hr IV Q24H [facility] Last Admin: 06/18/21 20:05 Dose: 200 mls/hr Documented by: Sodium Chloride (Sodium Chloride 0.45%) 1,000 mls @ 200 mls/hr IV ASDIRECTED [facility] Last Infusion: 06/17/21 23:19 Dose: 100 mls/hr Documented by: Sodium Chloride (Sodium Chloride 0.45%) 1,000 mls @ 100 mls/hr IV ASDIRECTED [facility] Stop: 06/18/21 07:00 Last Admin: 06/17/21 23:37 Dose: 100 mls/hr Documented by: Vancomycin HCl 1 gm/ Sodium (Chloride) 250 mls @ 250 mls/hr IV Q12H [facility] Last Admin: 06/19/21 04:04 Dose: 250 mls/hr Documented by: Sodium Chloride (Sodium Chloride 0.45%) 1,000 mls @ 100 mls/hr IV ASDIRECTED [facility] Last Infusion: 06/19/21 01:24 Dose: Infused Documented by: Vancomycin HCl 1 gm/Vancomycin HCl 250 mg/ Sodium Chloride 250 mls @ 166 mls/hr IV ONETIME ONE Stop: 06/18/21 17:30 Last Admin: 06/18/21 16:05 Dose: 166 mls/hr Documented by: Oxacillin Sodium 2 gm/ Sodium (Chloride) 100 mls @ 200 mls/hr IV Q4H [facility] Stop: 06/19/21 16:00 Last Admin: 06/19/21 14:59 Dose: 200 mls/hr Documented by: Lorazepam (Lorazepam 0.5 Mg Tab) 0.5 mg PO ONETIME ONE Stop: 06/17/21 18:53 Last Admin: 06/17/21 19:00 Dose: 0.5 mg Documented by: Lorazepam (Lorazepam 0.5 Mg Tab) 0.5 mg PO ONETIME ONE Stop: 06/17/21 18:55 Last Admin: 06/17/21 19:35 Dose: Not Given Documented by: Lorazepam (Lorazepam 2 Mg/Ml Sdv) 0.25 mg IVPUSH ONETIME ONE Stop: 06/17/21 19:12 Last Admin: 06/17/21 19:44 Dose: 0.25 mg Documented by: Metoprolol Tartrate (Metoprolol Tartrate 50 Mg Tab) 50 mg PO BID [facility] Last Admin: 06/19/21 08:34 Dose: 50 mg Documented by: Metoprolol Tartrate (Metoprolol Tartrate 100 Mg Tab) 100 mg PO Q12HR [facility] Last Admin: 06/19/21 08:34 Dose: 100 mg Documented by: Metoprolol Tartrate (Metoprolol Tartrate 50 Mg Tab) 50 mg PO ONETIME ONE Stop: 06/18/21 10:01 Last Admin: 06/18/21 11:10 Dose: 50 mg Documented by: Non-Formulary Medication (Crush Medications ) 1 dose PO ASDIRECTED [facility] Non-Formulary Medication (Donepezil) 10 mg PO DAILY [facility] Non-Formulary Medication (Plummer Thick Liquids) 1 dose PO ASDIRECTED [facility] Non-Formulary Medication (Potassium Chloride [Potassium Chloride]) 40 meq PO ONETIME [facility] Prednisone (Prednisone 20 Mg Tab) 20 mg PO WITHBREAKFAST [facility]NA Prednisone (Prednisone 20 Mg Tab) 20 mg PO ONETIME ONE Stop: 06/17/21 19:58 Vancomycin HCl (Pharmacy To Dose - Vancomycin) 0 dose .XX ASDIRECTED PRN PRN Reason: RX TO DOSE VANCOMYCIN - Exam Quality Assessment: No: Supplemental Oxygen General: Alert, Oriented HEENT: Pupils Equal, Mucous Membr. Moist/[place] Neck: Supple Lungs: Clear to Auscultation, Normal Respiratory Effort Cardiovascular: Irregular Rhythm GI/Abdominal Exam: Normal Bowel Sounds, Soft, Non-Tender, No Distention Extremities: Normal Inspection, Pedal Edema (trace) Skin: Warm, Dry, Intact Psy/Mental Status: Alert - Patient Data Lab Results Last 24 hrs: Laboratory Results - last 24 hr 06/18/21 06/18/21 06/18/21 Range/Units 13:10 15:49 17:00 WBC (4.23-9.07) K/mm3 RBC (4.63-6.08) M/mm3 Hgb (13.7-17.5) gm/dl Hct (40.1-51.0) % MCV (79.0-92.2) fl MCH (25.7-32.2) pg MCHC (32.2-35.5) g/dl RDW Std Deviation (35.1-43.9) fL Plt Count (163-337) K/mm3 MPV (9.4-12.3) fl Neut % (Auto) (34.0-67.9) % Lymph % (Auto) (21.8-53.1) % [place] % (Auto) (5.3-12.2) % Eos % (Auto) (0.8-7.0) Baso % (Auto) (0.1-1.2) % Neut # (Auto) (1.78-5.38) K/mm3 Lymph # (Auto) (1.32-3.57) K/mm3 [place] # (Auto) (0.30-0.82) K/mm3 Eos # (Auto) (0.04-0.54) K/mm3 Baso # (Auto) (0.01-0.08) K/mm3 Manual Slide Review Sodium (136-145) mEq/L Potassium (3.5-5.1) mEq/L Chloride (98-107) mEq/L Carbon Dioxide (21-32) mEq/L Anion Gap (5-15) BUN (7-18) mg/dL Creatinine (0.7-1.3) mg/dL Est Cr Clr Drug Dosing mL/min Estimated GFR (MDRD) (>60) mL/min BUN/Creatinine Ratio (14-18) Glucose (70-99) mg/dL POC Glucose 172 H (70-99) mg/dL Hemoglobin A1c ( - 5.6) % Calcium (8.5-10.1) mg/dL Total Bilirubin (0.2-1.0) mg/dL AST (15-37) U/L ALT (16-63) U/L Alkaline Phosphatase (46-116) U/L Troponin I (0.00-0.056) ng/mL C-Reactive Protein (<1.0) mg/dL Total Protein (6.4-8.2) g/dl Albumin (3.4-5.0) g/dl Globulin gm/dL Albumin/Globulin Ratio (1-2) Fluid Diff Comment Fluid Seg Neutrophils 93.0 H (0-25) % Fluid Lymphocytes 7.0 (0-78) % Fl Polymorphonucl Cell Not Reportable Fluid Crystals Cancelled Fluid Total Protein 4.9 gm/dl Synovial Crystals TNP 06/18/21 06/19/21 06/19/21 Range/Units 20:00 04:54 04:54 WBC 11.74 H (4.23-9.07) K/mm3 RBC 3.42 L (4.63-6.08) M/mm3 Hgb 10.0 L (13.7-17.5) gm/dl Hct 33.5 L (40.1-51.0) % MCV 98.0 H (79.0-92.2) fl MCH 29.2 (25.7-32.2) pg MCHC 29.9 L (32.2-35.5) g/dl RDW Std Deviation 51.2 H (35.1-43.9) fL Plt Count 338 H (163-337) K/mm3 MPV 10.5 (9.4-12.3) fl Neut % (Auto) 90.8 H (34.0-67.9) % Lymph % (Auto) 2.5 L (21.8-53.1) % [place] % (Auto) 5.8 (5.3-12.2) % Eos % (Auto) 0 L (0.8-7.0) Baso % (Auto) 0.0 L (0.1-1.2) % Neut # (Auto) 10.67 H (1.78-5.38) K/mm3 Lymph # (Auto) 0.29 L (1.32-3.57) K/mm3 [place] # (Auto) 0.68 (0.30-0.82) K/mm3 Eos # (Auto) 0.00 L (0.04-0.54) K/mm3 Baso # (Auto) 0.00 L (0.01-0.08) K/mm3 Manual Slide Review Abnormal smear Sodium 146 H (136-145) mEq/L Potassium 3.9 (3.5-5.1) mEq/L Chloride 108 H (98-107) mEq/L Carbon Dioxide 28 (21-32) mEq/L Anion Gap 13.9 (5-15) BUN 31 H (7-18) mg/dL Creatinine 1.0 (0.7-1.3) mg/dL Est Cr Clr Drug Dosing 51.41 mL/min Estimated GFR (MDRD) > 60 (>60) mL/min BUN/Creatinine Ratio 31.0 H (14-18) Glucose 141 H (70-99) mg/dL POC Glucose 151 H (70-99) mg/dL Hemoglobin A1c ( - 5.6) % Calcium 7.8 L (8.5-10.1) mg/dL Total Bilirubin 0.6 (0.2-1.0) mg/dL AST 27 (15-37) U/L ALT 42 (16-63) U/L Alkaline Phosphatase 113 (46-116) U/L Troponin I (0.00-0.056) ng/mL C-Reactive Protein 16.1 H* (<1.0) mg/dL Total Protein 5.1 L (6.4-8.2) g/dl Albumin 2.2 L (3.4-5.0) g/dl Globulin 2.9 gm/dL Albumin/Globulin Ratio 0.8 L (1-2) Fluid Diff Comment Fluid Seg Neutrophils (0-25) % Fluid Lymphocytes (0-78) % Fl Polymorphonucl Cell Fluid Crystals Fluid Total Protein gm/dl Synovial Crystals 06/19/21 06/19/21 06/19/21 Range/Units 04:54 04:54 06:00 WBC (4.23-9.07) K/mm3 RBC (4.63-6.08) M/mm3 Hgb (13.7-17.5) gm/dl Hct (40.1-51.0) % MCV (79.0-92.2) fl MCH (25.7-32.2) pg MCHC (32.2-35.5) g/dl RDW Std Deviation (35.1-43.9) fL Plt Count (163-337) K/mm3 MPV (9.4-12.3) fl Neut % (Auto) (34.0-67.9) % Lymph % (Auto) (21.8-53.1) % [place] % (Auto) (5.3-12.2) % Eos % (Auto) (0.8-7.0) Baso % (Auto) (0.1-1.2) % Neut # (Auto) (1.78-5.38) K/mm3 Lymph # (Auto) (1.32-3.57) K/mm3 [place] # (Auto) (0.30-0.82) K/mm3 Eos # (Auto) (0.04-0.54) K/mm3 Baso # (Auto) (0.01-0.08) K/mm3 Manual Slide Review Sodium (136-145) mEq/L Potassium (3.5-5.1) mEq/L Chloride (98-107) mEq/L Carbon Dioxide (21-32) mEq/L Anion Gap (5-15) BUN (7-18) mg/dL Creatinine (0.7-1.3) mg/dL Est Cr Clr Drug Dosing mL/min Estimated GFR (MDRD) (>60) mL/min BUN/Creatinine Ratio (14-18) Glucose (70-99) mg/dL POC Glucose 125 H (70-99) mg/dL Hemoglobin A1c 6.4 H ( - 5.6) % Calcium (8.5-10.1) mg/dL Total Bilirubin (0.2-1.0) mg/dL AST (15-37) U/L ALT (16-63) U/L Alkaline Phosphatase (46-116) U/L Troponin I 0.216 H* (0.00-0.056) ng/mL C-Reactive Protein (<1.0) mg/dL Total Protein (6.4-8.2) g/dl Albumin (3.4-5.0) g/dl Globulin gm/dL Albumin/Globulin Ratio (1-2) Fluid Diff Comment Fluid Seg Neutrophils (0-25) % Fluid Lymphocytes (0-78) % Fl Polymorphonucl Cell Fluid Crystals Fluid Total Protein gm/dl Synovial Crystals 06/19/21 Range/Units 11:57 WBC (4.23-9.07) K/mm3 RBC (4.63-6.08) M/mm3 Hgb (13.7-17.5) gm/dl Hct (40.1-51.0) % MCV (79.0-92.2) fl MCH (25.7-32.2) pg MCHC (32.2-35.5) g/dl RDW Std Deviation (35.1-43.9) fL Plt Count (163-337) K/mm3 MPV (9.4-12.3) fl Neut % (Auto) (34.0-67.9) % Lymph % (Auto) (21.8-53.1) % [place] % (Auto) (5.3-12.2) % Eos % (Auto) (0.8-7.0) Baso % (Auto) (0.1-1.2) % Neut # (Auto) (1.78-5.38) K/mm3 Lymph # (Auto) (1.32-3.57) K/mm3 [place] # (Auto) (0.30-0.82) K/mm3 Eos # (Auto) (0.04-0.54) K/mm3 Baso # (Auto) (0.01-0.08) K/mm3 Manual Slide Review Sodium (136-145) mEq/L Potassium (3.5-5.1) mEq/L Chloride (98-107) mEq/L Carbon Dioxide (21-32) mEq/L Anion Gap (5-15) BUN (7-18) mg/dL Creatinine (0.7-1.3) mg/dL Est Cr Clr Drug Dosing mL/min Estimated GFR (MDRD) (>60) mL/min BUN/Creatinine Ratio (14-18) Glucose (70-99) mg/dL POC Glucose 145 H (70-99) mg/dL Hemoglobin A1c ( - 5.6) % Calcium (8.5-10.1) mg/dL Total Bilirubin (0.2-1.0) mg/dL AST (15-37) U/L ALT (16-63) U/L Alkaline Phosphatase (46-116) U/L Troponin I (0.00-0.056) ng/mL C-Reactive Protein (<1.0) mg/dL Total Protein (6.4-8.2) g/dl Albumin (3.4-5.0) g/dl Globulin gm/dL Albumin/Globulin Ratio (1-2) Fluid Diff Comment Fluid Seg Neutrophils (0-25) % Fluid Lymphocytes (0-78) % Fl Polymorphonucl Cell Fluid Crystals Fluid Total Protein gm/dl Synovial Crystals Result Diagrams: 06/19/21 04:54 06/19/21 04:54 Geoffrey Results Last 24 hrs: Microbiology 06/18/21 15:49 Gram Stain - Final Knee, Left 06/17/21 21:20 Bacteria Detection (PCR) - Final Blood 06/17/21 21:20 Blood Culture - Preliminary Blood - Venous - Lab Draw Staphylococcus Aureus 06/18/21 15:49 Gram Stain - Final Knee, Left Sepsis Event Note - Evaluation Sepsis Screening Result: No Definite Risk - Focused Exam Vital Signs: Vital Signs Temp Pulse Resp BP BP Pulse Ox 06/19/21 13:00 97.2 F 18 93 L 06/19/21 12:01 16 122/72 96 06/19/21 12:00 25 H 100 06/19/21 11:00 20 88 L 06/19/21 10:35 13 109/95 H 94 L 06/19/21 10:34 14 98 06/19/21 10:01 23 H 146/119 H 83 L 06/19/21 10:00 18 61 L 06/19/21 09:00 21 H 97 06/19/21 08:45 97.2 F 19 97 06/19/21 08:34 121 H 120/81 06/19/21 08:33 120/81 06/19/21 08:31 18 120/81 99 06/19/21 08:30 17 98 06/19/21 08:01 24 H 128/96 H 98 06/19/21 08:00 29 H 96 06/19/21 07:01 19 107/77 06/19/21 07:00 19 97 06/19/21 06:52 124/99 H 06/19/21 06:32 19 124/99 H 100 06/19/21 06:31 25 H 100 06/19/21 06:02 21 H 145/121 H 99 06/19/21 06:01 21 H 100 06/19/21 06:00 25 H 129/89 99 06/19/21 05:31 19 129/89 99 06/19/21 05:30 18 98 06/19/21 05:01 13 118/77 98 06/19/21 05:00 8 L 118/77 97 06/19/21 04:31 20 113/61 94 L 06/19/21 04:30 16 99 06/19/21 04:14 11 L 122/68 100 06/19/21 04:13 22 H 99 - Problem List & Annotations (1) Type 2 myocardial infarction due to arrhythmia SNOMED Code(s): 45529280 Code(s): I49.9 - CARDIAC ARRHYTHMIA, UNSPECIFIED; I21.A1 - MYOCARDIAL INFARCTION TYPE 2 Status: Acute Current Visit: Yes (2) Dementia SNOMED Code(s): 79564772 Code(s): F03.90 - UNSPECIFIED DEMENTIA WITHOUT BEHAVIORAL DISTURBANCE Status: Acute Current Visit: Yes (3) Atrial fibrillation with RVR SNOMED Code(s): 673831053720264 Code(s): I48.91 - UNSPECIFIED ATRIAL FIBRILLATION Status: Acute Current Visit: Yes (4) Inflammatory arthritis SNOMED Code(s): 1810881 Code(s): M19.90 - UNSPECIFIED OSTEOARTHRITIS, UNSPECIFIED SITE Status: Acute Current Visit: No (5) Type II diabetes mellitus SNOMED Code(s): 92516344 Code(s): E11.9 - TYPE 2 DIABETES MELLITUS WITHOUT COMPLICATIONS Status: Chronic Priority: Medium Current Visit: No Qualifiers: Diabetes mellitus jail insulin use: with jail use Diabetes mellitus complication status: with other specified complication Qualified Code(s): E11.69 - Type 2 diabetes mellitus with other specified complication; 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 - Problem List Review Problem List Initiated/Reviewed/Updated: Yes - My Orders Last 24 Hours: My Active Orders 06/19/21 Echo Comp wo Cont [US] Routine 06/19/21 00:00 Diltiazem IR [Cardizem] 60 mg PO Q6HR 06/19/21 08:15 Sodium Chloride 0.45% 1,000 ml IV ASDIRECTED 06/19/21 18:00 Oxacillin 2 gm Dextrose 5% in Water 100 ml IV Q4H 06/19/21 21:00 Metoprolol Tartrate [Lopressor] 150 mg PO Q12HR - Plan Plan:: 85-year-old male with history of severe dementia, atrial fibrillation with RVR, gout, bilateral knee replacement, coronary artery disease with non-ST elevated [place], diabetes, CVA with left-sided hemiplegia and hemiparesis,, diastolic heart failure hyperlipidemia, hypertension dysphagia presents to the emergency department from his primary care provider secondary to A. fib with RVR. Atrial fibrillation with RVR Type 2 myocardial infarction History of diastolic dysfunction and coronary artery disease 06/17/2021 * Review of his [facility] chart shows that he recently, 3 days ago, had his metoprolol tartrate increased from 37.5 twice daily to 50 mg twice daily * Heart rate today was in the 140s and he was referred to the emergency department * He failed multiple boluses of Cardizem and was placed on a Cardizem drip in the emergency department * There is some concern of secondary infection and possibly SIRS/sepsis. Patient does have an elevated heart rate with elevated white count. White count could be increased because he was on prednisone for his possible gout. * Troponin is 0.425. This is likely secondary to rate related increase in cardiac work. Therefore, patient would not benefit from anticoagulation or cardiac catheterization * Home medications include Eliquis 5 mg twice daily, enalapril 5 mg daily, metoprolol 50 mg twice daily, furosemide 40 mg daily, isosorbide mononitrate 24-hour 30 mg daily 06/18/2021 It was difficult to control heart rate overnight. This morning Cardizem drip was increased to 20 mg/h. Also, we increased his metoprolol tartrate to 100 mg twice daily. Unfortunately, he did have significant drop in his blood pressures. Cardizem drip was ultimately held this morning and will continue to monitor and adjust the drip as necessary. Also, troponin did come back elevated slightly higher at 0.5, but not likely significant. Patient will continue on Eliquis 5 mg twice daily. 06/19/2021 Patient was switched to oral Cardizem IR 60 mg every 6 hours and heart rate has been better controlled. He continues on metoprolol tartrate now at 150 mg twice daily. We are waiting for transfer to tertiary care, but no beds are available. Will order echo. Troponin did decrease to 0.216 from yesterday's 0.5. On Eliquis. Hypernatremia and acute kidney injury 06/17/2021 * Sodium is 147 and creatinine of 1.5 * Patient appears to have some dehydration * Start one half normal saline 200 mL over the first hour then 100 mL/h for a total of 1 L. * Recheck kidney function and electrolytes in the morning. 06/18/2021 Renal function significantly improved. Creatinine is down to 1.1 and sodium is normal at 144. We will continue to monitor. 06/19/2021 Sodium creeped back up to 146. Creatinine continues to improve at 1.0. BUN is 31 making his BUN to creatinine ratio 31:1 suggesting continued hypovolemia. Will restart fluids. Severe left knee pain with effusion Report of cellulitis over that joint History of gout 06/17/2021 * Gout versus septic arthritis versus hemorrhagic effusion * Start Rocephin 2 g IV daily * Blood cultures * Procalcitonin, lactic acid, CRP, uric acid * Follow CBC, CMP, CRP * Consult orthopedics in the morning 06/18/2021 Dr. Morales was consulted and on arthrocentesis found the joint to be grossly infected. I contacted his son and explained to him that he would likely need to be transferred to have definitive treatment since we will not be able to care for him appropriately after surgery. He stated he needed to talk to his sister who is the medical power of assistant district attorney. We are still waiting for her to get back to us with what she wants to do. I did start him on vancomycin, pharmacy to dose. At this time we will continue him on ceftriaxone although this will likely be able to be discontinued. I would like to start him on rifampin, but there is a significant interaction with Cardizem and Eliquis. I will hold off at this time. 06/19/2021 Non-MRSA Staph aureus was positive in blood cultures. IV antibiotics will be changed from MRSA to more MSSA specific treatment awaiting sensitivities. Start oxacillin 2 g IV every 4 hours and DC ceftriaxone and vancomycin. Gram stain of joint fluid was positive for gram-positive cocci. Severe dementia History of CVA * Likely vascular dementia from history of CVA * On Aricept * Will update family regularly Diabetes mellitus * On Lantus 10 units daily * Unknown hemoglobin A1c 06/18/2021 Patient was started on a sliding scale insulin. Blood sugars have been in the mid 100s. We will check a hemoglobin A1c. 06/19/2021 Hemoglobin A1c 6.1. Blood sugars well controlled with just sliding scale. VTE prophylaxis with Eliquis CODE STATUS: Full code
[2021-06-19] MEDS: OXACILLIN IV SCH ×4 (17:46→22:01)
[2021-06-19] MEDS: DEXTROSE 5% IV SCH ×4 (17:46→22:01)
[2021-06-19] MEDS: WATER IV SCH ×4 (17:46→22:01)
[2021-06-19] MEDS: Insulin Lispro 100 Unit/ML 3 ML KwikPen SUBCUT PRN ×2 (17:48→20:33)
[2021-06-20] MEDS: WATER IV SCH ×6 (01:38→10:43)
[2021-06-20] MEDS: DEXTROSE 5% IV SCH ×6 (01:38→10:43)
[2021-06-20] MEDS: OXACILLIN IV SCH ×6 (01:38→10:43)
[2021-06-20] MEDS ORDERED: Hyaluronidase, Human Recombinant 150 Units/1 ML SDV SUBCUT ONE (02:45)
[2021-06-20] MEDS: Sodium Chloride 0.45% 1,000 ML IV SCH (05:01)
[2021-06-20] MEDS: Diltiazem IR 60 MG Tab PO SCH ×2 (05:04→13:02)
[2021-06-20] MEDS: atorvaSTATin 20 MG Tab PO SCH (09:05)
[2021-06-20] MEDS: Furosemide 40 MG Tab PO SCH (09:05)
[2021-06-20] MEDS: Isosorbide Mononitrate 30 MG Tab.ER PO SCH (09:07)
[2021-06-20] MEDS: Aspirin 81 MG Tab.EC PO SCH (09:08)
[2021-06-20] MEDS: Donepezil 10 MG Tab PO SCH (09:08)
[2021-06-20] MEDS: Apixaban 5 MG Tab PO SCH (09:08)
[2021-06-20] MEDS: Enalapril 5 MG Tab PO SCH (09:08)
[2021-06-20] MEDS: Potassium Chloride 20 MEQ Tab.ER PO SCH (09:08)
[2021-06-20] MEDS: Allopurinol 100 MG Tab PO SCH (09:08)
[2021-06-20] MEDS: Metoprolol Tartrate 100 MG Tab PO SCH (09:09)
[2021-06-20 09:13] VITALS: PULSE 101
[2021-06-20] MEDS: Sertraline 50 MG Tab PO SCH (09:20)
--- NOTE | 2021-06-20 12:00 | PCM.DCSUM1 ---
Discharge Summary - Hospital Course HPI Initial Comments: 85-year-old male with severe dementia presents to the emergency department at the request of his primary care provider secondary to elevated heart rate. Patient is a resident of [facility]. He was being seen for continued left knee pain and tachycardia. Patient was treated for left knee pain starting June 10, 2021. He was placed on prednisone 20 mg a day for 7 days and then it was to decrease to 10 mg/day starting on June 17. He was also started on Augmentin 1 tab twice daily starting June 14. Patient has a history of atrial fibrillation with episodes of RVR. Apparently his rate was noted to be elevated and an EKG done at his primary care providers office on the day of admission showed atrial fibrillation with a ventricular rate between 101 and 161. Patient denies any chest pain, shortness of breath, orthopnea. He d oes complain of left knee pain. In the emergency department patient was noted to have a heart rate in the 130s to 140s and started on a Cardizem drip after having Cardizem 10 mg boluses x3 without benefit. Of note his troponin was slightly elevated at 0.425. He is on metoprolol tartrate 50 mg twice daily, enalapril 5 mg daily, and Eliquis. Patient also has a history of gout and is on allopurinol 200 mg daily. Please see his medication list for full details of his medications. In the emergency department his EKG was ventricular rate of 76-156 with right bundle branch block. Assessment/Plan Comment:: 85-year-old male with history of severe dementia, atrial fibrillation with RVR, gout, bilateral knee replacement, coronary artery disease with non-ST elevated TN, diabetes, CVA with left-sided hemiplegia and hemiparesis,, diastolic heart failure hyperlipidemia, hypertension dysphagia presents to the emergency department from his primary care provider secondary to A. fib with RVR. Atrial fibrillation with RVR Type 2 myocardial infarction History of diastolic dysfunction and coronary artery disease * Review of his prison chart shows that he recently, 3 days ago, had his metoprolol tartrate increased from 37.5 twice daily to 50 mg twice daily * Heart rate today was in the 140s and he was referred to the emergency department * He failed multiple boluses of Cardizem and was placed on a Cardizem drip in the emergency department * There is some concern of secondary infection and possibly SIRS/sepsis. Patient does have an elevated heart rate with elevated white count. White count could be increased because he was on prednisone for his possible gout. * Troponin is 0.425. This is likely secondary to rate related increase in cardiac work. Therefore, patient would not benefit from anticoagulation or cardiac catheterization * Home medications include Eliquis 5 mg twice daily, enalapril 5 mg daily, metoprolol 50 mg twice daily, furosemide 40 mg daily, isosorbide mononitrate 24-hour 30 mg daily Hyponatremia and acute kidney injury * Sodium is 147 and creatinine of 1.5 * Patient appears to have some dehydration * Start one half normal saline 200 mL over the first hour then 100 mL/h for a total of 1 L. * Recheck kidney function and electrolytes in the morning. Severe left knee pain with effusion Report of cellulitis over that joint History of gout * Gout versus septic arthritis versus hemorrhagic effusion * Start Rocephin 2 g IV daily * Blood cultures * Procalcitonin, lactic acid, CRP, uric acid * Follow CBC, CMP, CRP * Consult orthopedics in the morning Severe dementia History of CVA * Likely vascular dementia from history of CVA * On Aricept * Will update family regularly Diabetes mellitus * On Lantus 10 units daily * Unknown hemoglobin A1c VTE prophylaxis with Eliquis CODE STATUS: Full code - Mortality Measure Prognosis:: Poor Diagnosis: Stroke: No - Discharge Data Discharge Date: 06/20/21 Discharge Disposition: DC/Tfer to Acute Hospital 02 Condition: Stable - Referral to Home Health Primary Care Physician: Pepe Isbell MD - Discharge Diagnosis/Problem(s) (1) Type 2 myocardial infarction due to arrhythmia SNOMED Code(s): 05305551 ICD Code: I49.9 - CARDIAC ARRHYTHMIA, UNSPECIFIED; I21.A1 - MYOCARDIAL INFARCTION TYPE 2 Status: Acute Current Visit: Yes (2) Dementia SNOMED Code(s): 69067382 ICD Code: F03.90 - UNSPECIFIED DEMENTIA WITHOUT BEHAVIORAL DISTURBANCE Status: Acute Current Visit: Yes (3) Atrial fibrillation with RVR SNOMED Code(s): 143688709977702 ICD Code: I48.91 - UNSPECIFIED ATRIAL FIBRILLATION Status: Acute Current Visit: Yes (4) Inflammatory arthritis SNOMED Code(s): 2968928 ICD Code: M19.90 - UNSPECIFIED OSTEOARTHRITIS, UNSPECIFIED SITE Status: Acute Current Visit: No (5) Type II diabetes mellitus SNOMED Code(s): 33929043 ICD Code: E11.9 - TYPE 2 DIABETES MELLITUS WITHOUT COMPLICATIONS Status: Chronic Priority: Medium Current Visit: No Qualifiers: Diabetes mellitus alf insulin use: with watermelon inspector use Diabetes mellitus complication status: with other specified complication Qualified Code(s): E11.69 - Type 2 diabetes mellitus with other specified complication; Z79.4 - termination clerk (current) use of insulin - Patient Summary/Data Hospital Course: 85-year-old male with history of severe dementia, atrial fibrillation with RVR, gout, bilateral knee replacement, coronary artery disease with non-ST elevated TN, diabetes, CVA with left-sided hemiplegia and hemiparesis,, diastolic heart failure hyperlipidemia, hypertension dysphagia presents to the emergency department from his primary care provider secondary to A. fib with RVR. Atrial fibrillation with RVR Type 2 myocardial infarction History of diastolic dysfunction and coronary artery disease 06/17/2021 * Review of his prison chart shows that he recently, 3 days ago, had his metoprolol tartrate increased from 37.5 twice daily to 50 mg twice daily * Heart rate today was in the 140s and he was referred to the emergency department * He failed multiple boluses of Cardizem and was placed on a Cardizem drip in t emergency department * There is some concern of secondary infection and possibly SIRS/sepsis. Patient does have an elevated heart rate with elevated white count. White count could be increased because he was on prednisone for his possible gout. * Troponin is 0.425. This is likely secondary to rate related increase in cardiac work. Therefore, patient would not benefit from anticoagulation or c ardiac catheterization * Home medications include Eliquis 5 mg twice daily, enalapril 5 mg daily, metoprolol 50 mg twice daily, furosemide 40 mg daily, isosorbide mononitrate 24-hour 30 mg daily 06/18/2021 It was difficult to control heart rate overnight. This morning Cardizem drip was increased to 20 mg/h. Also, we increased his metoprolol tartrate to 100 mg twice daily. Unfortunately, he did have significant drop in his blood pressures. Cardizem drip was ultimately held this morning and will continue to monitor and adjust the drip as necessary. Also, troponin did come back elevated slightly hi gher at 0.5, but not likely significant. Patient will continue on Eliquis 5 mg twice daily. 06/19/2021 Patient was switched to oral Cardizem IR 60 mg every 6 hours and heart rate has been better controlled. He continues on metoprolol tartrate now at 150 mg twice daily. We are waiting for transfer to tertiary care, but no beds are available. Will order echo. Troponin did decrease to 0.216 from yesterday's 0.5. On Eliquis. 06/20/2021 Ventricular rate is better controlled today in the 90s. He continues on Cardizem IR 60 mg every 6 hours and metoprolol tartrate 150 mg twice daily. He has been accepted at [facility] in [place] for further evaluation and treatment of his left septic knee. Hypernatremia and acute kidney injury 06/17/2021 * Sodium is 147 and creatinine of 1.5 * Patient appears to have some dehydration * Start one half normal saline 200 mL over the first hour then 100 mL/h for a total of 1 L. * Recheck kidney function and electrolytes in the morning. 06/18/2021 Renal function significantly improved. Creatinine is down to 1.1 and sodium is normal at 144. We will continue to monitor. 06/19/2021 Sodium creeped back up to 146. Creatinine continues to improve at 1.0. BUN is 31 making his BUN to creatinine ratio 31:1 suggesting continued hypovolemia. Will restart fluids. 06/20/2021 Sodium is 144 today. Potassium slightly low at 3.4 will replace. Creatinine 1.0. Currently on half-normal saline at 75 mL/h. Severe left knee pain with effusion Report of cellulitis over that joint History of gout 06/17/2021 * Gout versus septic arthritis versus hemorrhagic effusion * Start Rocephin 2 g IV daily * Blood cultures * Procalcitonin, lactic acid, CRP, uric acid * Follow CBC, CMP, CRP * Consult orthopedics in the morning 06/18/2021 Dr. Morales was consulted and on arthrocentesis found the joint to be grossly infected. I contacted his son and explained to him that he would likely need to be transferred to have definitive treatment since we will not be able to care for him appropriately after surgery. He stated he needed to talk to his sister who is the medical power of immigration attorney. We are still waiting for her to get back to us with what she wants to do. I did start him on vancomycin, pharmacy to dose. At this time we will continue him on ceftriaxone although this will likely be able to be discontinued. I would like to start him on rifampin, but there is a significant interaction with Cardizem and Eliquis. I will hold off at this time. 06/19/2021 Non-MRSA Staph aureus was positive in blood cultures. IV antibiotics will be changed from MRSA to more MSSA specific treatment awaiting sensitivities. Start oxacillin 2 g IV every 4 hours and DC ceftriaxone and vancomycin. Gram stain of joint fluid was positive for gram-positive cocci. 06/20/2021 He has been accepted at [facility] in [place] for further evaluation and treatment of his left septic knee. Culture of the knee is positive for staph aureus. Sensitivities pending. Currently on oxacillin 2 g IV every 4 hours. WBC up to 13. Severe dementia History of CVA * Likely vascular dementia from history of CVA * On Aricept * Will update family regularly Diabetes mellitus * On Lantus 10 units daily * Unknown hemoglobin A1c 06/18/2021 Patient was started on a sliding scale insulin. Blood sugars have been in the mid 100s. We will check a hemoglobin A1c. 06/19/2021 Hemoglobin A1c 6.4. Blood sugars well controlled with just sliding scale. 06/20/2021 Blood sugars well controlled in the mid to upper 100s. Continue on sliding scale. VTE prophylaxis with Eliquis CODE STATUS: Full code - Patient Instructions Diet: Diabetic Diet - Discharge Plan *PRESCRIPTION DRUG MONITORING PROGRAM REVIEWED*: Not Applicable *COPY OF PRESCRIPTION DRUG MONITORING REPORT IN PATIENT TURNER: Not Applicable Home Medications: Home Meds Insulin Detemir [Levemir Flexpen] 10 unit SQ DAILY 06/05/15 [History] Acetaminophen [Tylenol] 650 mg PO QID PRN 07/11/15 [History] Enalapril Maleate 5 mg PO DAILY 07/11/15 [History] Metoprolol Tartrate [Lopressor] 50 mg PO BID 07/11/15 [History] Sertraline [Zoloft] 50 mg PO DAILY 07/11/15 [History] allopurinoL [Zyloprim] 200 mg PO DAILY 07/11/15 [History] Bisacodyl [Dulcolax] 10 mg RECTAL DAILY PRN 07/16/16 [History] Crush Medications 1 dose PO ASDIRECTED 07/16/16 [History] Docusate Sodium/Sennosides [Senna Plus] 2 tab PO BID 07/16/16 [History] Menthol/Camphor [Sarna Anti-Itch] 1 applic TP BEDTIME 07/16/16 [History] Crayne Thick Liquids 1 dose PO ASDIRECTED 07/16/16 [History] Nitroglycerin [Nitrostat] 0.4 mg SL Q5M PRN 07/16/16 [History] Triamcinolone Acetonide [Triamcinolone Acetonide 0.1% Crm] 1 applic TOP BID PRN 07/16/16 [History] atorvaSTATin [Lipitor] 10 mg PO DAILY 07/16/16 [History] Apixaban [Eliquis] 5 mg PO BID 02/09/20 [History] Cetirizine [ZyrTEC] 5 mg PO DAILY 02/09/20 [History] Donepezil [Aricept] 10 mg PO DAILY 09/06/20 [History] Isosorbide Mononitrate [Imdur] 30 mg PO DAILY 09/06/20 [History] Aspirin 81 mg PO DAILY 09/12/20 [History] Cranberry 425 mg PO BID 09/12/20 [History] Furosemide [Lasix] 40 mg PO DAILY 09/12/20 [History] Potassium Chloride 40 meq PO ONETIME #2 tablet.er 09/14/20 [Rx] cephALEXin [Keflex] 500 mg PO TID #14 cap 09/14/20 [Rx] Amoxicillin/Clavulanate K [Augmentin 875-125 MG] 1 tab PO DAILY 06/17/21 [History] Ascorbic Acid [Vitamin C] 500 mg PO DAILY 06/17/21 [History] Carbamide Peroxide [Debrox 6.5% Otic Soln] 3 drop EARBOTH ASDIRECTED 06/17/21 [History] Hydrocodone/Acetaminophen [HYDROcodone-Acetaminophen 5-325 MG] 1 tab PO BID 06/17/21 [History] Nitroglycerin [Nitrostat] 0.4 mg SL TID PRN 06/17/21 [History] Sertraline [Zoloft] 50 mg PO DAILY 06/17/21 [History] predniSONE [Prednisone] 10 mg PO DAILY MDD 7 06/17/21 [History] Oxygen Therapy Mode: Room Air Patient Handouts: Knee Arthrocentesis, Atrial Fibrillation, [id number], Sepsis, Self Care, Adult Forms: ED Department Discharge Referrals: Pepe Isbell MD [Primary Care Provider] - - Discharge Summary/Plan Comment DC Time >30 min.: Yes Total # of Minutes for Discharge Time: 45 minutes Total time spent includes seeing the patient, doing discharge paperwork, and arranging care. - General Info Date of Service: 06/20/21 Admission Dx/Problem (Free Text: Admission Diagnosis/Problem Admission Diagnosis/Problem Atrial fibrillation Subjective Update: Patient without complaints. Dr. Hernández in internal medicine, hospitalist, accepted patient for transfer to [facility] in [place]. Functional Status: Reports: Pain Controlled - Review of Systems General: Reports: No Symptoms HEENT: Reports: No Symptoms Pulmonary: Reports: No Symptoms Cardiovascular: Reports: No Symptoms Gastrointestinal: Reports: No Symptoms Musculoskeletal: Reports: No Symptoms - Patient Data Vitals - Most Recent: Last Vital Signs Temp 97.0 F 06/20/21 08:00 Pulse 101 H 06/20/21 09:09 Resp 17 06/20/21 08:00 BP 136/88 06/20/21 09:09 Pulse Ox 94 L 06/20/21 08:00 Weight - Most Recent: 177 lb 3.2 oz I&O - Last 24 hours: Intake & Output 06/19/21 06/20/21 06/20/21 22:59 06:59 14:59 Intake Total 1605 987 130 Balance 1605 987 130 Lab Results - Last 24 hrs: Laboratory Results - last 24 hr 06/18/21 06/19/21 06/19/21 Range/Units 15:49 11:57 17:24 WBC (4.23-9.07) K/mm3 RBC (4.63-6.08) M/mm3 Hgb (13.7-17.5) gm/dl Hct (40.1-51.0) % MCV (79.0-92.2) fl MCH (25.7-32.2) pg MCHC (32.2-35.5) g/dl RDW Std Deviation (35.1-43.9) fL Plt Count (163-337) K/mm3 MPV (9.4-12.3) fl Neut % (Auto) (34.0-67.9) % Lymph % (Auto) (21.8-53.1) % [place] % (Auto) (5.3-12.2) % Eos % (Auto) (0.8-7.0) Baso % (Auto) (0.1-1.2) % Neut # (Auto) (1.78-5.38) K/mm3 Lymph # (Auto) (1.32-3.57) K/mm3 [place] # (Auto) (0.30-0.82) K/mm3 Eos # (Auto) (0.04-0.54) K/mm3 Baso # (Auto) (0.01-0.08) K/mm3 Manual Slide Review Sodium (136-145) mEq/L Potassium (3.5-5.1) mEq/L Chloride (98-107) mEq/L Carbon Dioxide (21-32) mEq/L Anion Gap (5-15) BUN (7-18) mg/dL Creatinine (0.7-1.3) mg/dL Est Cr Clr Drug Dosing mL/min Estimated GFR (MDRD) (>60) mL/min BUN/Creatinine Ratio (14-18) Glucose (70-99) mg/dL POC Glucose 145 H 219 H (70-99) mg/dL Calcium (8.5-10.1) mg/dL Magnesium (1.8-2.4) mg/dL Synovial Crystals see below (Absent) 06/19/21 06/20/21 06/20/21 Range/Units 20:32 05:19 05:20 WBC 13.11 H (4.23-9.07) K/mm3 RBC 3.56 L (4.63-6.08) M/mm3 Hgb 10.7 L (13.7-17.5) gm/dl Hct 34.3 L (40.1-51.0) % MCV 96.3 H (79.0-92.2) fl MCH 30.1 (25.7-32.2) pg MCHC 31.2 L (32.2-35.5) g/dl RDW Std Deviation 49.3 H (35.1-43.9) fL Plt Count 332 (163-337) K/mm3 MPV 10.3 (9.4-12.3) fl Neut % (Auto) 90.4 H (34.0-67.9) % Lymph % (Auto) 2.4 L (21.8-53.1) % [place] % (Auto) 6.3 (5.3-12.2) % Eos % (Auto) 0 L (0.8-7.0) Baso % (Auto) 0.0 L (0.1-1.2) % Neut # (Auto) 11.85 H (1.78-5.38) K/mm3 Lymph # (Auto) 0.31 L (1.32-3.57) K/mm3 [place] # (Auto) 0.83 H (0.30-0.82) K/mm3 Eos # (Auto) 0.00 L (0.04-0.54) K/mm3 Baso # (Auto) 0.00 L (0.01-0.08) K/mm3 Manual Slide Review Abnormal smear Sodium (136-145) mEq/L Potassium (3.5-5.1) mEq/L Chloride (98-107) mEq/L Carbon Dioxide (21-32) mEq/L Anion Gap (5-15) BUN (7-18) mg/dL Creatinine (0.7-1.3) mg/dL Est Cr Clr Drug Dosing mL/min Estimated GFR (MDRD) (>60) mL/min BUN/Creatinine Ratio (14-18) Glucose (70-99) mg/dL POC Glucose 179 H 142 H (70-99) mg/dL Calcium (8.5-10.1) mg/dL Magnesium (1.8-2.4) mg/dL Synovial Crystals (Absent) 06/20/21 Range/Units 05:20 WBC (4.23-9.07) K/mm3 RBC (4.63-6.08) M/mm3 Hgb (13.7-17.5) gm/dl Hct (40.1-51.0) % MCV (79.0-92.2) fl MCH (25.7-32.2) pg MCHC (32.2-35.5) g/dl RDW Std Deviation (35.1-43.9) fL Plt Count (163-337) K/mm3 MPV (9.4-12.3) fl Neut % (Auto) (34.0-67.9) % Lymph % (Auto) (21.8-53.1) % [place] % (Auto) (5.3-12.2) % Eos % (Auto) (0.8-7.0) Baso % (Auto) (0.1-1.2) % Neut # (Auto) (1.78-5.38) K/mm3 Lymph # (Auto) (1.32-3.57) K/mm3 [place] # (Auto) (0.30-0.82) K/mm3 Eos # (Auto) (0.04-0.54) K/mm3 Baso # (Auto) (0.01-0.08) K/mm3 Manual Slide Review Sodium 144 (136-145) mEq/L Potassium 3.4 L (3.5-5.1) mEq/L Chloride 108 H (98-107) mEq/L Carbon Dioxide 27 (21-32) mEq/L Anion Gap 12.4 (5-15) BUN 26 H (7-18) mg/dL Creatinine 1.0 (0.7-1.3) mg/dL Est Cr Clr Drug Dosing 51.41 mL/min Estimated GFR (MDRD) > 60 (>60) mL/min BUN/Creatinine Ratio 26.0 H (14-18) Glucose 160 H (70-99) mg/dL POC Glucose (70-99) mg/dL Calcium 7.9 L (8.5-10.1) mg/dL Magnesium 2.1 (1.8-2.4) mg/dL Synovial Crystals (Absent) NACHO Results - Last 24 hrs: Microbiology 06/18/21 15:49 Miscellaneous Reference Culture - Preliminary Knee, Left Staphylococcus Aureus Gram Stain - Final 06/17/21 21:20 Blood Culture - Preliminary Blood - Venous - Lab Draw Staphylococcus Aureus 06/17/21 20:25 Blood Culture - Preliminary Blood - Venous Staphylococcus Aureus 06/17/21 21:20 Bacteria Detection (PCR) - Final Blood Med Orders - Current: Current Medications Acetaminophen (Acetaminophen 325 Mg Tab) 650 mg PO Q4H PRN PRN Reason: Pain (Mild 1-3)/fever Hydrocodone Bitart/Acetaminophen (Acetaminophen/Hydrocodone 325-5 Mg Tab) 1 tab PO Q4H PRN PRN Reason: Pain (moderate 4-6) Allopurinol (Allopurinol 100 Mg Tab) 200 mg PO DAILY [facility] Last Admin: 06/20/21 09:08 Dose: 200 mg Documented by: Apixaban (Apixaban 5 Mg Tab) 5 mg PO BID [facility] Last Admin: 06/20/21 09:08 Dose: 5 mg Documented by: Aspirin (Aspirin 81 Mg Tab.Ec) 81 mg PO DAILY [facility] Last Admin: 06/20/21 09:08 Dose: 81 mg Documented by: Atorvastatin Calcium (Atorvastatin 20 Mg Tab) 10 mg PO DAILY [facility] Last Admin: 06/20/21 09:05 Dose: 10 mg Documented by: Bisacodyl (Bisacodyl 10 Mg Supp) 10 mg RECTAL DAILY PRN PRN Reason: Constipation Diltiazem HCl (Diltiazem Ir 60 Mg Tab) 60 mg PO Q6HR [facility] Last Admin: 06/20/21 05:04 Dose: 60 mg Documented by: Donepezil HCl (Donepezil 10 Mg Tab) 10 mg PO DAILY [facility] Last Admin: 06/20/21 09:08 Dose: 10 mg Documented by: Enalapril Maleate (Enalapril 5 Mg Tab) 5 mg PO DAILY [facility] Last Admin: 06/20/21 09:08 Dose: 5 mg Documented by: Furosemide (Furosemide 40 Mg Tab) 40 mg PO DAILY [facility] Last Admin: 06/20/21 09:05 Dose: 40 mg Documented by: Diltiazem HCl 100 mg/ Sodium (Chloride) 100 mls @ 5 mls/hr IV TITRATE [facility]; Protocol Last Titration: 06/19/21 01:24 Dose: 0 mg/hr, 0 mls/hr Documented by: Sodium Chloride (Sodium Chloride 0.45%) 1,000 mls @ 75 mls/hr IV ASDIRECTED [facility] Last Admin: 06/20/21 05:01 Dose: 75 mls/hr Documented by: Oxacillin Sodium 2 gm/ (Dextrose/Water) 100 mls @ 200 mls/hr IV Q4H [facility] Last Admin: 06/20/21 10:43 Dose: 200 mls/hr Documented by: Insulin Human Lispro (Insulin Lispro 100 Unit/Ml 3 Ml Kwikpen) 0 unit SUBCUT QIDACANDBED PRN; Protocol PRN Reason: Hyperglycemia Last Admin: 06/19/21 20:33 Dose: 2 units Documented by: Isosorbide Mononitrate (Isosorbide Mononitrate 30 Mg Tab.Er) 30 mg PO DAILY [facility] Last Admin: 06/20/21 09:07 Dose: 30 mg Documented by: Metoprolol Tartrate (Metoprolol Tartrate 100 Mg Tab) 150 mg PO Q12HR [facility] Last Admin: 06/20/21 09:09 Dose: 150 mg Documented by: Nitroglycerin (Nitroglycerin 0.4 Mg Tab.Sl) 0.4 mg SL Q5M PRN PRN Reason: Chest Pain Potassium Chloride (Potassium Chloride 20 Meq Tab.Er) 40 meq PO DAILY [facility] Last Admin: 06/20/21 09:08 Dose: 40 meq Documented by: Sertraline HCl (Sertraline 50 Mg Tab) 50 mg PO DAILY [facility] Last Admin: 06/20/21 09:20 Dose: 50 mg Documented by: Discontinued Medications Aspirin (Aspirin 81 Mg Tab.Chew) 81 mg PO DAILY [facility] Diltiazem HCl (Diltiazem 50 Mg/10 Ml Sdv) 20 mg IVPUSH ONETIME ONE Stop: 06/17/21 15:11 Last Admin: 06/17/21 15:50 Dose: 10 mg Documented by: Diltiazem HCl (Diltiazem 50 Mg/10 Ml Sdv) 10 mg IVPUSH ONETIME ONE Stop: 06/17/21 16:14 Last Admin: 06/17/21 16:27 Dose: 10 mg Documented by: Hyaluronidase (Hyaluronidase, Human Recombinant 150 Units/1 Ml Sdv) 150 units SUBCUT ONETIME ONE Stop: 06/20/21 02:46 Last Admin: 06/20/21 03:07 Dose: 150 units Documented by: Ceftriaxone Sodium 2 gm/ (Sodium Chloride) 100 mls @ 200 mls/hr IV Q24H [facility] Last Admin: 06/18/21 07:41 Dose: Not Given Documented by: Ceftriaxone Sodium 2 gm/ (Sodium Chloride) 100 mls @ 200 mls/hr IV Q24H [facility] Last Admin: 06/18/21 20:05 Dose: 200 mls/hr Documented by: Sodium Chloride (Sodium Chloride 0.45%) 1,000 mls @ 200 mls/hr IV ASDIRECTED [facility] Last Infusion: 06/17/21 23:19 Dose: 100 mls/hr Documented by: Sodium Chloride (Sodium Chloride 0.45%) 1,000 mls @ 100 mls/hr IV ASDIRECTED [facility] Stop: 06/18/21 07:00 Last Admin: 06/17/21 23:37 Dose: 100 mls/hr Documented by: Vancomycin HCl 1 gm/ Sodium (Chloride) 250 mls @ 250 mls/hr IV Q12H [facility] Last Admin: 06/19/21 04:04 Dose: 250 mls/hr Documented by: Sodium Chloride (Sodium Chloride 0.45%) 1,000 mls @ 100 mls/hr IV ASDIRECTED [facility] Last Infusion: 06/19/21 01:24 Dose: Infused Documented by: Vancomycin HCl 1 gm/Vancomycin HCl 250 mg/ Sodium Chloride 250 mls @ 166 mls/hr IV ONETIME ONE Stop: 06/18/21 17:30 Last Admin: 06/18/21 16:05 Dose: 166 mls/hr Documented by: Oxacillin Sodium 2 gm/ Sodium (Chloride) 100 mls @ 200 mls/hr IV Q4H [facility] Stop: 06/19/21 16:00 Last Admin: 06/19/21 14:59 Dose: 200 mls/hr Documented by: Lorazepam (Lorazepam 0.5 Mg Tab) 0.5 mg PO ONETIME ONE Stop: 06/17/21 18:53 Last Admin: 06/17/21 19:00 Dose: 0.5 mg Documented by: Lorazepam (Lorazepam 0.5 Mg Tab) 0.5 mg PO ONETIME ONE Stop: 06/17/21 18:55 Last Admin: 06/17/21 19:35 Dose: Not Given Documented by: Lorazepam (Lorazepam 2 Mg/Ml Sdv) 0.25 mg IVPUSH ONETIME ONE Stop: 06/17/21 19:12 Last Admin: 06/17/21 19:44 Dose: 0.25 mg Documented by: Metoprolol Tartrate (Metoprolol Tartrate 50 Mg Tab) 50 mg PO BID [facility] Last Admin: 06/19/21 08:34 Dose: 50 mg Documented by: Metoprolol Tartrate (Metoprolol Tartrate 100 Mg Tab) 100 mg PO Q12HR [facility] Last Admin: 06/19/21 08:34 Dose: 100 mg Documented by: Metoprolol Tartrate (Metoprolol Tartrate 50 Mg Tab) 50 mg PO ONETIME ONE Stop: 06/18/21 10:01 Last Admin: 06/18/21 11:10 Dose: 50 mg Documented by: Non-Formulary Medication (Crush Medications ) 1 dose PO ASDIRECTED [facility] Non-Formulary Medication (Donepezil) 10 mg PO DAILY [facility] Non-Formulary Medication (Crayne Thick Liquids) 1 dose PO ASDIRECTED [facility] Non-Formulary Medication (Potassium Chloride [Potassium Chloride]) 40 meq PO ONETIME [facility] Prednisone (Prednisone 20 Mg Tab) 20 mg PO WITHBREAKFAST [facility] Prednisone (Prednisone 20 Mg Tab) 20 mg PO ONETIME ONE Stop: 06/17/21 19:58 Senna/Docusate Sodium (Docusate Sodium/Sennosides 50-8.6 Mg Tab) 2 tab PO BID [facility] Last Admin: 06/20/21 09:20 Dose: Not Given Documented by: Vancomycin HCl (Pharmacy To Dose - Vancomycin) 0 dose .XX ASDIRECTED PRN PRN Reason: RX TO DOSE VANCOMYCIN - Exam Quality Assessment: Denies: Supplemental Oxygen General: Reports: Alert HEENT: Reports: Pupils Equal, Mucous Membr. Moist/[place] Neck: Reports: Supple Lungs: Reports: Clear to Auscultation, Normal Respiratory Effort Cardiovascular: Reports: Irregular Rhythm (Rate and rhythm) GI/Abdominal Exam: Normal Bowel Sounds, Soft, Non-Tender, No Distention Extremities: Normal Inspection, Normal Range of Motion, Non-Tender, No Pedal Edema, Normal Capillary Refill Psy/Mental Status: Reports: Alert, Normal Affect, Normal Mood
[2021-06-20] MEDS: Insulin Lispro 100 Unit/ML 3 ML KwikPen SUBCUT PRN (12:42)
[2021-06-20 13:14] VITALS: BP 136/108
== END 2021-06-20 13:17 | DRG 281 ==
LOC: JD.ED 14:44 → JD.ICU 18:48
PROVIDERS: ADMIT Family Medicine; ATTEND Family Medicine
PROC: 0S9D3ZX Drainage of Left Knee Joint, Percutaneous Approach, Diagnostic (ICD-10-PCS; principal; 2021-06-18)
DX: I48.91 Unspecified atrial fibrillation (principal); I48.21 Permanent atrial fibrillation; I21.A1 Myocardial infarction type 2; I69.354 Hemiplegia and hemiparesis following cerebral infarction affecting left non-dominant side; E87.1 Hypo-osmolality and hyponatremia; I50.9 Heart failure, unspecified; L03.116 Cellulitis of left lower limb; I50.32 Chronic diastolic (congestive) heart failure; M00.062 Staphylococcal arthritis, left knee; N17.9 Acute kidney failure, unspecified; I25.10 Atherosclerotic heart disease of native coronary artery without angina pectoris; G40.909 Epilepsy, unspecified, not intractable, without status epilepticus; F32.9 Major depressive disorder, single episode, unspecified; F03.90 Unspecified dementia, unspecified severity, without behavioral disturbance, psychotic disturbance, mood disturbance, and anxiety; M25.462 Effusion, left knee; E11.9 Type 2 diabetes mellitus without complications; M19.90 Unspecified osteoarthritis, unspecified site; M10.9 Gout, unspecified; I11.0 Hypertensive heart disease with heart failure; K59.09 Other constipation; K21.9 Gastro-esophageal reflux disease without esophagitis; M54.9 Dorsalgia, unspecified; B95.61 Methicillin susceptible Staphylococcus aureus infection as the cause of diseases classified elsewhere; G89.29 Other chronic pain; F32.A Depression, unspecified; E87.6 Hypokalemia; D64.9 Anemia, unspecified; E11.65 Type 2 diabetes mellitus with hyperglycemia; E78.5 Hyperlipidemia, unspecified; J30.9 Allergic rhinitis, unspecified; H04.129 Dry eye syndrome of unspecified lacrimal gland; Z96.653 Presence of artificial knee joint, bilateral; R13.10 Dysphagia, unspecified; E78.00 Pure hypercholesterolemia, unspecified; G47.00 Insomnia, unspecified; Z20.822 Contact with and (suspected) exposure to COVID-19; Z79.4 Long term (current) use of insulin; Z79.890 Hormone replacement therapy; Z79.82 Long term (current) use of aspirin; Z79.899 Other long term (current) drug therapy; Z86.16 Personal history of COVID-19; I25.2 Old myocardial infarction; Z79.01 Long term (current) use of anticoagulants; Z79.52 Long term (current) use of systemic steroids
CPT/HCPCS: 36415; 71045; 80053; 84484; 85025; 93005; 96365; 96366; 96376; 99285; J3490 ×4; U0002; 73560-26-LT; 73560-LT; 80048; 81001; 82947; 83036; 83605; 83735; 84145; 84157; 84443; 84550; 86140; 87040; 87070; 87077; 87150; 87186; 87205; 89050; 89060; 93010; 93306; 99223; 99232; 99239; 99283; A9270-GY; J0696; J1815; J2060; J2700; J3370; J3470; J7050

== ENCOUNTER 2021-07-01 14:06 | Emergency (ER) | payer MEDICARE, MEDICAID ==
[2021-07-01 14:25] VITALS: BP 115/60; PULSE 66
--- NOTE | 2021-07-01 14:29 | EDM.PDOC ---
ED HPI GENERAL MEDICAL PROBLEM - General Chief Complaint: IV Access Related Stated Complaint: PROBLEMS WITH PICC LINE Time Seen by Provider: 07/01/21 14:16 - History of Present Illness INITIAL COMMENTS - FREE TEXT/NARRATIVE: 85-year-old male sent over from the long-term because his PICC line could not be accessed. Patient denies any complaints at this time. - Related Data Allergies Allergy/AdvReac Type Severity Reaction Status Date / Time No Known Allergies Allergy Verified 06/17/21 14:59 Home Meds: Home Meds Insulin Detemir [Levemir Flexpen] 10 unit SQ DAILY 06/05/15 [History] Acetaminophen [Tylenol] 650 mg PO QID PRN 07/11/15 [History] Enalapril Maleate 5 mg PO DAILY 07/11/15 [History] Metoprolol Tartrate [Lopressor] 50 mg PO BID 07/11/15 [History] Sertraline [Zoloft] 50 mg PO DAILY 07/11/15 [History] allopurinoL [Zyloprim] 200 mg PO DAILY 07/11/15 [History] Bisacodyl [Dulcolax] 10 mg RECTAL DAILY PRN 07/16/16 [History] Crush Medications 1 dose PO ASDIRECTED 07/16/16 [History] Docusate Sodium/Sennosides [Senna Plus] 2 tab PO BID 07/16/16 [History] Menthol/Camphor [Sarna Anti-Itch] 1 applic TP BEDTIME 07/16/16 [History] [place] Thick Liquids 1 dose PO ASDIRECTED 07/16/16 [History] Nitroglycerin [Nitrostat] 0.4 mg SL Q5M PRN 07/16/16 [History] Triamcinolone Acetonide [Triamcinolone Acetonide 0.1% Crm] 1 applic TOP BID PRN 07/16/16 [History] atorvaSTATin [Lipitor] 10 mg PO DAILY 07/16/16 [History] Apixaban [Eliquis] 5 mg PO BID 02/09/20 [History] Cetirizine [ZyrTEC] 5 mg PO DAILY 02/09/20 [History] Donepezil [Aricept] 10 mg PO DAILY 09/06/20 [History] Isosorbide Mononitrate [Imdur] 30 mg PO DAILY 09/06/20 [History] Aspirin 81 mg PO DAILY 09/12/20 [History] Cranberry 425 mg PO BID 09/12/20 [History] Furosemide [Lasix] 40 mg PO DAILY 09/12/20 [History] Potassium Chloride 40 meq PO ONETIME #2 tablet.er 09/14/20 [Rx] cephALEXin [Keflex] 500 mg PO TID #14 cap 09/14/20 [Rx] Amoxicillin/Clavulanate K [Augmentin 875-125 MG] 1 tab PO DAILY 06/17/21 [History] Ascorbic Acid [Vitamin C] 500 mg PO DAILY 06/17/21 [History] Carbamide Peroxide [Debrox 6.5% Otic Soln] 3 drop EARBOTH ASDIRECTED 06/17/21 [History] Hydrocodone/Acetaminophen [HYDROcodone-Acetaminophen 5-325 MG] 1 tab PO BID 06/17/21 [History] Nitroglycerin [Nitrostat] 0.4 mg SL TID PRN 06/17/21 [History] Sertraline [Zoloft] 50 mg PO DAILY 06/17/21 [History] predniSONE [Prednisone] 10 mg PO DAILY MDD 7 06/17/21 [History] Past Medical History HEENT History: Reports: Allergic Rhinitis, Other (See Below) Other HEENT History: dry eyes; dysphasia, is on nectar thickened liquids with crushed meds/pureed foods Cardiovascular History: Reports: Afib, CAD, Heart Failure, High Cholesterol, Hypertension, [place] Respiratory History: Reports: Other (See Below) Other Respiratory History: cough Gastrointestinal History: Reports: Chronic Constipation, Chronic Diarrhea, GERD, Other (See Below) Other Gastrointestinal History: dysphagia Genitourinary History: Reports: Urinary Incontinence, UTI, Recurrent Musculoskeletal History: Reports: Back Pain, Chronic, Gout, Other (See Below) Other Musculoskeletal History: chronic muscle weakness; hemiplegia and hemiparesis left side Neurological History: Reports: CVA, Seizure, Other (See Below) Other Neuro History: 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 Psychiatric History: Reports: Dementia, Depression, Other (See Below) Other Psychiatric History: insomnia Endocrine/Metabolic History: Reports: Diabetes, Type II, Hypokalemia Hematologic History: Reports: Other (See Below) Other Hematologic History: sepsis - Infectious Disease History Infectious Disease History: Reports: Novel Coronavirus - Past Surgical History Cardiovascular Surgical History: Reports: None Social & Family History - Family History Family Medical History: No Pertinent Family History - Caffeine Use Caffeine Use: Reports: None - Living Situation & Occupation Living situation: Reports: Extended Care Facility ([facility]) Occupation: Retired ED ROS GENERAL - Review of Systems Review Of Systems: See Below Constitutional: Reports: No Symptoms Respiratory: Reports: No Symptoms Cardiovascular: Reports: No Symptoms GI/Abdominal: Reports: No Symptoms ED EXAM, GENERAL - Physical Exam Exam: See Below Exam Limited By: No Limitations General Appearance: Alert, No Apparent Distress Respiratory/Chest: No Respiratory Distress, Lungs Clear, Normal Breath Sounds Cardiovascular: Regular Rate, Rhythm, No Murmur Course - Re-Assessments/Exams Free Text/Narrative Re-Assessment/Exam: 07/01/21 14:27 Nursing was able to access the PICC line flushed it and is now working appropriately. Departure - Departure Time of Disposition: 14:27 Disposition: DC/Tfer to [facility] 03 Clinical Impression: PIC line (peripherally inserted central catheter) flush - Discharge Information Referrals: Pepe Isbell MD [Primary Care Provider] - Additional Instructions: Return to the emergency room with any questions or problems.
== END 2021-07-01 14:50 ==
LOC: JD.ED 14:06
DX: T82.898A Other specified complication of vascular prosthetic devices, implants and grafts, initial encounter (principal); M10.9 Gout, unspecified; I48.91 Unspecified atrial fibrillation; I11.0 Hypertensive heart disease with heart failure; I50.9 Heart failure, unspecified; E78.00 Pure hypercholesterolemia, unspecified; I25.2 Old myocardial infarction; Z79.899 Other long term (current) drug therapy; Z79.01 Long term (current) use of anticoagulants; Z79.82 Long term (current) use of aspirin; Z86.16 Personal history of COVID-19
CPT/HCPCS: 99283

== ENCOUNTER 2021-10-30 07:59 | Inpatient (IN) | payer MEDICARE, MEDICAID ==
[2021-10-30] MEDS ORDERED: Sodium Chloride 0.9% 1,000 ML IV SCH (08:15)
[2021-10-30] MEDS ORDERED: Diltiazem 50 MG/10 ML SDV IVPUSH ONE (08:20)
[2021-10-30] MEDS: Diltiazem 100 MG in Sodium Chloride 0.9% 100 ML IV SCH ×2 (09:16→19:00)
[2021-10-30] MEDS ORDERED: Furosemide 40 MG/4 ML VIAL IVPUSH ONE (09:35)
[2021-10-30] MEDS ORDERED: cefTRIAXone 2 GM in Sodium Chloride 0.9% 100 ML IV ONE (10:35)
[2021-10-30] MEDS ORDERED: Sodium Chloride 0.9% 1,000 ML IV ONE ×2 (11:25→14:50)
[2021-10-30] MEDS ORDERED: Diltiazem 240 MG Cap.ER PO ONE ×2 (13:13→16:11)
[2021-10-31] MEDS: Diltiazem 100 MG in Sodium Chloride 0.9% 100 ML IV SCH (04:21)
[2021-10-31] MEDS ORDERED: Metoprolol Tartrate 5 MG/5 ML SDV IVPUSH ONE (09:00)
[2021-10-31] MEDS ORDERED: Morphine 2 MG/ML SYRINGE ONE (09:46)
[2021-10-31] MEDS ORDERED: Morphine 2 MG/ML SYRINGE IVPUSH ONE (10:00)
[2021-10-31] MEDS ORDERED: D5 1/2 NS w/ 20 mEq/L KCl 1,000 ML IV SCH (10:15)
[2021-10-31] MEDS: cefTRIAXone 2 GM in Sodium Chloride 0.9% 100 ML IV SCH (12:23)
[2021-10-31] MEDS: Potassium Chloride 10 MEQ in Premix Bag 1 BAG IV SCH ×4 (12:24→15:53)
[2021-10-31] MEDS: Metoprolol Tartrate 25 MG Tab PO SCH ×2 (12:54→21:15)
[2021-10-31] MEDS: Morphine 2 MG/ML SYRINGE IVPUSH PRN (14:58)
[2021-10-31] MEDS: Acetaminophen 325 MG Tab PO SCH ×2 (17:27→21:16)
[2021-10-31] MEDS: Insulin Glargine,Human Rec. Analog 100 Units/ML 3 ML Pen SUBCUT SCH (17:28)
[2021-10-31] MEDS: Aspirin 81 MG Tab.Chew PO SCH (17:31)
[2021-10-31] MEDS: Apixaban 5 MG Tab PO SCH (21:16)
[2021-11-01] MEDS: D5 1/2 NS w/ 20 mEq/L KCl 1,000 ML IV SCH ×2 (02:37→13:24)
[2021-11-01] MEDS: Metoprolol Tartrate 25 MG Tab PO SCH ×3 (05:19→20:07)
[2021-11-01] MEDS: Aspirin 81 MG Tab.Chew PO SCH (10:19)
[2021-11-01] MEDS: Donepezil 10 MG Tab PO SCH (10:20)
[2021-11-01] MEDS: Acetaminophen 325 MG Tab PO SCH ×3 (10:20→20:08)
[2021-11-01] MEDS: atorvaSTATin 20 MG Tab PO SCH (10:23)
[2021-11-01] MEDS: Apixaban 5 MG Tab PO SCH ×2 (10:23→20:07)
[2021-11-01] MEDS: Insulin Glargine,Human Rec. Analog 100 Units/ML 3 ML Pen SUBCUT SCH (10:26)
[2021-11-01] MEDS: cefTRIAXone 2 GM in Sodium Chloride 0.9% 100 ML IV SCH (13:14)
[2021-11-01] MEDS ORDERED: D5 1/2 NS w/ 20 mEq/L KCl 1,000 ML IV SCH (18:00)
[2021-11-02] MEDS ORDERED: Metoprolol Tartrate 50 MG Tab PO ONE (00:43)
[2021-11-02] MEDS: Morphine 2 MG/ML SYRINGE IVPUSH PRN (02:29)
[2021-11-02] MEDS: Donepezil 10 MG Tab PO SCH (08:11)
[2021-11-02] MEDS: atorvaSTATin 20 MG Tab PO SCH (08:11)
[2021-11-02] MEDS: Metoprolol Tartrate 50 MG Tab PO SCH ×2 (08:12→20:00)
[2021-11-02] MEDS: Acetaminophen 325 MG Tab PO SCH ×3 (08:12→20:01)
[2021-11-02] MEDS: Aspirin 81 MG Tab.Chew PO SCH (08:13)
[2021-11-02] MEDS: Apixaban 5 MG Tab PO SCH ×2 (08:13→20:00)
[2021-11-02] MEDS: Insulin Glargine,Human Rec. Analog 100 Units/ML 3 ML Pen SUBCUT SCH (08:16)
[2021-11-02] MEDS: cefTRIAXone 2 GM in Sodium Chloride 0.9% 100 ML IV SCH (12:18)
[2021-11-03] MEDS: Morphine 2 MG/ML SYRINGE IVPUSH PRN ×2 (06:45→23:26)
[2021-11-03] MEDS: atorvaSTATin 20 MG Tab PO SCH (09:51)
[2021-11-03] MEDS: Aspirin 81 MG Tab.Chew PO SCH (09:51)
[2021-11-03] MEDS: Metoprolol Tartrate 50 MG Tab PO SCH ×2 (09:51→21:05)
[2021-11-03] MEDS: Acetaminophen 325 MG Tab PO SCH ×3 (09:57→21:04)
[2021-11-03] MEDS: Apixaban 5 MG Tab PO SCH ×2 (09:58→21:05)
[2021-11-03] MEDS: Insulin Glargine,Human Rec. Analog 100 Units/ML 3 ML Pen SUBCUT SCH (09:58)
[2021-11-03] MEDS: Donepezil 10 MG Tab PO SCH (09:58)
[2021-11-03] MEDS: cefTRIAXone 2 GM in Sodium Chloride 0.9% 100 ML IV SCH (12:31)
[2021-11-04] MEDS: Acetaminophen 325 MG Tab PO SCH (08:03)
[2021-11-04] MEDS: atorvaSTATin 20 MG Tab PO SCH (08:04)
[2021-11-04] MEDS: Metoprolol Tartrate 50 MG Tab PO SCH (08:04)
[2021-11-04] MEDS: Aspirin 81 MG Tab.Chew PO SCH (08:04)
[2021-11-04] MEDS: Donepezil 10 MG Tab PO SCH (08:04)
[2021-11-04] MEDS: Apixaban 5 MG Tab PO SCH (08:04)
[2021-11-04] MEDS: Insulin Glargine,Human Rec. Analog 100 Units/ML 3 ML Pen SUBCUT SCH (08:20)
[2021-11-04] MEDS ORDERED: Diltiazem 180 MG Cap.CD PO ONE (08:24)
[2021-11-04 09:34] VITALS: BP 126/102
[2021-11-04 10:08] VITALS: PULSE 115
[2021-11-04] MEDS: Morphine 2 MG/ML SYRINGE IVPUSH PRN (11:19)
[2021-11-04] MEDS: cefTRIAXone 2 GM in Sodium Chloride 0.9% 100 ML IV SCH (11:22)
== END 2021-11-04 15:00 | DRG 280 ==
LOC: JD.ED 07:59 → JD.ICU 11:27
PROVIDERS: ADMIT Emergency Medicine; ATTEND Pediatrics
DX: I13.0 Hypertensive heart and chronic kidney disease with heart failure and stage 1 through stage 4 chronic kidney disease, or unspecified chronic kidney disease (principal); I50.43 Acute on chronic combined systolic (congestive) and diastolic (congestive) heart failure; I21.4 Non-ST elevation (NSTEMI) myocardial infarction; I21.3 ST elevation (STEMI) myocardial infarction of unspecified site; J30.9 Allergic rhinitis, unspecified; N18.4 Chronic kidney disease, stage 4 (severe); R47.02 Dysphasia; I48.91 Unspecified atrial fibrillation; N39.0 Urinary tract infection, site not specified; I48.20 Chronic atrial fibrillation, unspecified; E87.0 Hyperosmolality and hypernatremia; I69.354 Hemiplegia and hemiparesis following cerebral infarction affecting left non-dominant side; N17.9 Acute kidney failure, unspecified; R78.81 Bacteremia; Z20.822 Contact with and (suspected) exposure to COVID-19; Z51.5 Encounter for palliative care; F03.90 Unspecified dementia, unspecified severity, without behavioral disturbance, psychotic disturbance, mood disturbance, and anxiety; E78.00 Pure hypercholesterolemia, unspecified; I25.10 Atherosclerotic heart disease of native coronary artery without angina pectoris; I73.9 Peripheral vascular disease, unspecified; K59.09 Other constipation; F32.A Depression, unspecified; K21.9 Gastro-esophageal reflux disease without esophagitis; M54.9 Dorsalgia, unspecified; G89.29 Other chronic pain; M10.9 Gout, unspecified; M19.90 Unspecified osteoarthritis, unspecified site; D69.59 Other secondary thrombocytopenia; T45.515A Adverse effect of anticoagulants, initial encounter; G47.00 Insomnia, unspecified; E11.22 Type 2 diabetes mellitus with diabetic chronic kidney disease; B96.1 Klebsiella pneumoniae [K. pneumoniae] as the cause of diseases classified elsewhere; E87.6 Hypokalemia; H04.123 Dry eye syndrome of bilateral lacrimal glands; R74.02 Elevation of levels of lactic acid dehydrogenase [LDH]; R13.10 Dysphagia, unspecified; R32 Unspecified urinary incontinence; Z79.4 Long term (current) use of insulin; Z79.82 Long term (current) use of aspirin; Z79.899 Other long term (current) drug therapy; I25.2 Old myocardial infarction; Z86.16 Personal history of COVID-19; Z79.01 Long term (current) use of anticoagulants
CPT/HCPCS: 36415; 71045; 80053; 81001; 83605; 83735; 83880; 84484; 85025; 85610; 85730; 86140; 87040 ×2; 87077; 87086; 87088; 87186 ×2; 96365; 96366; 96375; 96376; 99285; J1940; J3490 ×2; J7030; U0002; 82550; 82728; 82947; 83540; 83615; 87154; 93005; 93010; 93306; 97110-GP; 97162-GP; 97530-GP; A9270-GY; J0696; J1815-GY; J2270; J3480